=== PATIENT | female | born 1945 | race Caucasian/White ===

== ENCOUNTER 2024-01-22 22:14 | Emergency (ER) | payer MEDICARE, SELFPAY ==
[2024-01-22 22:32] VITALS: BP 145/65; PULSE 62; RESP 18; TEMP 36.5; O2SAT 99; BMI 39.5
--- NOTE | 2024-01-22 22:45 | ED_ITS ---
HPI - Extremity Injury (Lower) General Chief Complaint: Extremity Injury, Lower Stated Complaint: SWELLING LT ANKLE/LEG Time Seen by Provider: 01/22/24 22:41 Source: patient and family Mode of arrival: Wheelchair Limitations: no limitations History of Present Illness HPI Narrative: patient presents complaining of swelling of her left leg that started yesterday PM. she and her have been at [facility] for her son who required heart surgery. She Decided to leave because she started having discomfort of her left leg and swelling. No dyspnea or chest pain. no fever or nausea. Has pain when bearing weight Related Data Allergies Allergy/AdvReac Type Severity Reaction Status Date / Time Penicillins Allergy Intermediate airway Verified 01/22/24 22:36 Review of Systems ROS Status of ROS 10 or more systems reviewed and unremark able except as noted in history and below Exam Constitutional Vital Signs, click to edit/add: Last Vital Signs Temp 97.7 F 01/22/24 22:32 Pulse 62 01/22/24 22:32 Resp 18 01/22/24 22:32 BP 145/65 H 01/22/24 22:32 Pulse Ox 99 01/22/24 22:32 O2 Del Method Room Air 01/22/24 22:32 Common normals: no apparent distress, oriented x3, alert and well nourished Eye Common normals: EOMs intact bilaterally and conjunctivae normal Respiratory Common normals: normal respiratory effort, no retractions, no use of accessory muscles and clear to auscultation bilaterally Cardio Common normals: regular rate, regular rhythm, S1 normal heart sound and S2 normal heart sound GI Common normals: Normal to inspection, nondistended, normoactive bowel sounds present, soft to palpation and non-tender Extremity Other: 1+ swelling LLE . Mild tenderness of gastroc and ankle. Mild warmth at ankle . No erythma Neuro Common normals: oriented x3, CN's II-XII intact bilaterally, moves all extremities and no focal motor deficits Psych Appearance: grossly normal Course Vital Signs Vital signs: Vital Signs Temperature 97.7 F 01/22/24 22:32 Pulse Rate 62 01/22/24 22:32 Respiratory Rate 18 01/22/24 22:32 Blood Pressure 145/65 H 01/22/24 22:32 Pulse Oximetry 99 01/22/24 22:32 Oxygen Delivery Method Room Air 01/22/24 22:32 Temperature 97.7 F 01/22/24 22:32 Pulse Rate 62 01/22/24 22:32 Respiratory Rate 18 01/22/24 22:32 Blood Pressure 145/65 H 01/22/24 22:32 Pulse Oximetry 99 01/22/24 22:32 Oxygen Delivery Method Room Air 01/22/24 22:32 MDM - Extremity Injury (Lower) MDM Narrative Medical decision making narrative: patient presents with 2 day history of swelling LLE. d-dimer positive. Patient given dose of Lovenox and is to return tomorrow for venous doppler of her leg Discharge Plan Discharge Stand Alone Forms: Portal Instructions Chief Complaint: Extremity Injury, Lower Clinical Impression: Localized swelling of left lower leg Patient Disposition: Home, Self-Care Instructions: Leg Edema (ED) Additional Instructions: return tomorrow for ultrasound Referrals: Physician,Non-Staff, MD [Primary Care Provider] - 1 week
[2024-01-22 23:24] LABS: Basophils Absolute Auto 0.1 10^3/uL (0.0-0.1); Basophils Percent Auto 0.9 % (0.2-2.0); Eosinophils Absolute Auto 0.4 10^3/uL (0.0-0.7); Eosinophils Percent Auto 3.6 % (0.9-7.0); Hematocrit 38.8 % (36.0-48.0); Hemoglobin 12.7 g/dL (12.0-16.0); Immature Granulocytes Abs Auto 0.04 10^3/uL (0.00-0.03); Immature Granulocytes Pct Auto 0.3 % (0.0-0.5); Lymphocytes Absolute Auto 1.8 10^3/uL (1.2-3.8); Mean Corpuscular HGB Conc 32.7 g/dL (29.9-35.2); Mean Corpuscular Hemoglobin 32.8 pg (26.7-34.0); Mean Corpuscular Volume 100.3 fL (81.0-99.0); Mean Platelet Volume 10.8 fL (9.5-13.5); Monocytes Absolute Auto 0.9 10^3/uL (0.3-0.8); Monocytes Percent Auto 7.3 % (1.7-12.0); Neutrophils Absolute Auto 8.9 10^3/uL (1.4-6.5); Neutrophils Percent Auto 72.9 % (43.0-75.0); Platelet Count 218 10^3/uL (150-450); Red Blood Count 3.87 10^6/uL (4.20-5.40); White Blood Count 12.2 10^3/uL (4.0-11.0)
[2024-01-22 23:35] LABS: Alanine Aminotransferase 25 U/L (14-59); Albumin Level 3.4 g/dL (3.4-5.0); Alkaline Phosphatase 103 U/L (46-116); Anion Gap 15.2; Aspartate Amino Transferase 18 U/L (15-37); BUN Creatinine Ratio 34.7; Bilirubin Total 0.4 mg/dL (0.2-1.0); Calcium 8.9 mg/dL (8.5-10.1); Carbon Dioxide 24.2 mmol/L (21.0-32.0); Chloride 103 mmol/L (98-107); D Dimer 0.81 mg/L FEU (<=0.59); Estimated GFR (African America 54 (>=60); Estimated GFR (Non-African Ame 44 (>=60); Globulin 3.5 g/dL; Glucose 157 mg/dL (74-106); Potassium 3.4 mmol/L (3.5-5.1); Sodium 139 mmol/L (136-145); Total Protein 6.9 g/dL (6.4-8.2); Uric Acid 7.9 mg/dL (2.6-6.0)
[2024-01-22 23:36] LABS: Erythrocyte Sedimentation Rate 50 mm/hr (<=30)
[2024-01-22 23:47] VITALS: BP 103/57; PULSE 57; RESP 18; O2SAT 93
[2024-01-23] MEDS: TRAMADOL HCL 50 MG TABLET PO (00:07)
[2024-01-23] MEDS: ENOXAPARIN SODIUM 100 MG/ML SYRINGE SUBQ (00:07)
== END 2024-01-23 00:15 | disposition home or self-care (01) ==
PROVIDERS: Emergency Provider Internal Medicine
DX: M79.89 Other specified soft tissue disorders (principal)
CPT/HCPCS: 36415; 80053; 84550; 85025; 85378; 85652; 86140; 96372; 99284

== ENCOUNTER 2024-01-23 07:41 | Outpatient (OUT) | payer MEDICARE, SELFPAY ==
--- OUTSIDE RECORDS SUMMARY | 2024-01-23 07:45 | XMS_ITS | CCD ---
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 Role Phone Steph Hung Primary Care Provider None, Physician Primary Care Provider [phone] MD Moreno Mccord Attending Provider [phone] Steph Hung MD Primary Care Provider MD Steph Hung Primary Care Provider CONSTANZA Harrison Attending Provider STEPH HUNG Primary Care Unavailable HEATHER HURLEY Attending Unavailable MD Steph Hung Primary Care Provider MD Moreno Mccord Attending Provider Sam Hung MD Primary Care Provider Sam Hung MD Primary Care Provider Sam Hung MD Primary Care Provider CHANCE PATTON Attending Unavailable ABHILASH, PARMIE M Primary Care Unavailable CHANCE PATTON Attending Unavailable ABHILASH, PARMIE M Primary Care Unavailable CHANCE APTTON Attending Unavailable ABHILASH, PARMIE M Primary Care Unavailable Sam Hung MD Primary Care Provider JULIAN SPAIN Referring Unavailable ABHILASH, PARMIE A Primary Care Unavailable JULIAN SPAIN Referring Unavailable ABHILASH, PARMIE A Primary Care Unavailable STEPH HUNG Primary Care Unavailable ABHILASH, PARMIE A Primary Care Unavailable JULIAN SPAIN Referring Unavailable ABHILASH, PARMIE A Primary Care Unavailable JULIAN SPAIN Referring Unavailable ABHILASH, PARMIE A Primary Care Unavailable JULIAN SPAIN Referring Unavailable ABHILASH, PARMIE A Primary Care Unavailable TRICIA PÉREZ Attending Unavailable TRICIA PÉREZ Referring Unavailable ABHILASH, PARMIE A Primary Care Unavailable TRICIA PÉREZ Attending Unavailable ELISA, TRICIA Referring Unavailable ABHILASH, PARMIE A Primary Care Unavailable JAKUB, CHANTEL Olvera Admitting Unavailable JAKUB, CHANTEL Olvera Attending Unavailable ABHILASH, STEPH A Primary Care Unavailable JAKUB, CHANTEL J Admitting Unavailable JAKUB, CHANTEL Olvera Attending Unavailable ABHILASH, PARMIE A Primary Care Unavailable LAMONT STEWART Referring Unavailable ABHILASH, STEPH A Primary Care Unavailable ABHILASH, PARMIE A Referring Unavailable ABHILASH, PARMIE A Primary Care Unavailable MORENO MCCORD Referring Unavailable ABHILASH, STEPH A Primary Care Unavailable ABHILASH, STEPH A Primary Care Unavailable ABHILASH, STEPH A Primary Care Unavailable ABHILASH, STEPH A Primary Care Unavailable ABHILASH, PARMIE A Primary Care Unavailable ABHILASH, PARMIE A Primary Care Unavailable EDNA MCCLOUD Referring Unavailable ABHILASH, PARMIE A Primary Care Unavailable Allergies Allergy Classification Reported Allergen(s) Allergy Type Date of Onset Reaction(s) Facility Penicillins (antibiotic) (1 source) Penicillins Drug Allergy 3 Anaphylaxis, Shortness Of Breath, Swelling [facility] (20 sources) Penicillins; Translations: [PENICILLINS] Propensity to adverse reactions to drug 3 Anaphylaxis, Shortness Of Breath, Swelling [facility], [place] (8 sources) Penicillins Drug Intolerance 3 Anaphylaxis, Hives, Rash, Shortness of breath, Swelling [facility] Medications Current Medications Medication Drug Class(es) Dates Sig (Normalized) Sig (Original) acetaminophen 325 mg oral tablet (20 sources) Start: 09-27-2023 take 1 tablet by mouth every four hours as needed 650 mg, oral, Every 4 hours PRN, pain mild (1-3), first line, Starting on Mon09/27/23 at 1436, Phase II/On Unit If ordered PRN for pain, nurse is permitted to administer this medication for higher pain scores based on patient preference? Yes take 2 tablets by [facility] every six hours as needed acetaminophen (TYLENOL) 500 MG tablet Ta ke 2 tablets by mouth every 6 hours as needed (pt takes very rare) 0 Active take 1 tablet by takn th every six hours as needed acetaminophen (Tylenol) 500 mg tablet Ta ke 1 tablet (500 mg) by mouth every 6 hours if needed for mild pain (1 - 3). 0 Active acetaminophen 325 mg / HYDROcodone bitartrate 5 mg oral tablet (2 sources) Opioid Agonist Start: 09-29-2023 End: 10-04-2023 take 1 tablet by mouth every six hours for pain HYDROcodone-acetaminophen ([place]) 5-325 mg tablet Indications: Paraesophageal hiatal hernia Take 1 tablet by mouth every 6 hours if needed for severe pain (7 - 10) for up to 5 days. 20 tablet 0 09/29/2023 10/04/2023 Active Start: 09-27-2023 take 1 tablet by tank th every six hours as needed 1 tablet, oral, Every 6 hours PRN, pain moderate (4-6), first line, Starting on Mon09/27/23 at 1436, Phase II/On Unit If ordered PRN for pain, nurse is permitted to administer this medication for higher pain scores based on patient preference? Yes acyclovir 400 mg oral tablet (20 sources) Herpesvirus Nucleoside Analog DNA Polymerase Inhibitor, Herpes Simplex Virus Nucleoside Analog DNA Polymerase Inhibitor, Herpes Zoster Virus Nucleoside Analog DNA Polymerase Inhibitor acyclovir (ZOVIRAX) 400 MG tablet Take 1 tablet by mouth 0 Active albuterol 0.833 mg/ml / ipratropium bromide 0.167 mg/ml inhalation solution (3 sources) Anticholinergic, beta2-Adrenergic Agonist Start: 3 End: 3 ipratropium-albute roL (Duo-Neb) 0.5-2.5 mg/3 mL nebulizer solution 3 mL aluminum hydroxide 40 mg/ml / magnesium hydroxide 40 mg/ml / simethicone 4 mg/ml oral suspension (1 source) Start: 3 take 20 mL by mouth three times daily 20 mL, oral, 3 times daily, First dose on Mon09/27/23 at 1500, Phase II/On Unit amLODIPine 5 mg oral tablet (9 sources) Dihydropyridine Calcium Channel Francisco Start: 1 take 1 tablet by mouth twice daily amLODIPine (NORVASC) 5 MG tablet TAKE 1 TABLET BY MOUTH TWICE A DAY 0 06/29/2021 Active aspirin 81 mg chewable tablet (20 sources) Platelet Aggregation Inhibitor, Nonsteroidal Anti-inflammatory Drug Start: take 1 tablet by mouth once daily aspirin (ASPIRIN CHILDRENS) 81 MG chewable tablet Take 1 tablet by mouth daily 30 tablet 0 07/03/2022 Active Start: 07-03-2022 aspirin chewab le tablet 324 mg take 1 tablet by tank th once daily aspirin 81 mg EC tablet Take 1 tablet (81 mg) by mouth once daily. 0 Active End: 09-26-2023 aspirin (ASPIR-81 ORAL) Take 81 tablets by mouth once daily. 0 09/26/2023 Discontinued aspirin (ASPIR-8 1 ORAL) Take 81 tablets by mouth once daily. 0 Active End: 07-03-2022 take 1 tablet by mouth once daily aspirin 81 MG tablet Take 81 mg by mouth daily 0 07/03/2022 Discontinued (LIST CLEANUP) atenolol 25 mg oral tablet (20 sources) beta-Adrenergic Francisco Start: 03-06-2023 End: 09-27-2023 take 1 tablet by mouth once daily atenolol (Tenormin) 25 mg tablet Take 1 tablet (25 mg) by mouth once daily. 0 03/06/2023 Active Start: 07-06-2021 atenolol (TENO RMIN) 50 MG tablet 1 tablet 0 07/06/2021 Active Start: 07-06-2021 atenolol (TENO RMIN) 50 MG tablet 25 mg 0 07/06/2021 Active atorvastatin 80 mg oral tablet (13 sources) HMG-CoA Reductase Inhibitor Start: 07-03-2022 take 1 tablet by mouth once daily atorvastatin (LIPITOR) 80 MG tablet Take 1 tablet by mouth daily 30 tablet 0 07/03/2022 Active 30 ml bupivacaine hydrochloride 2.5 mg/ml injection (2 sources) Amide Local Anesthetic Start: 12-08-2020 bupivacaine (PF) (MARCAINE) 0.25 % injection Start: 11-10-2020 End: 11-10-2020 bupivacaine (PF) (MARCAINE) 0.25 % injection diclofenac sodium 0.01 mg/mg topical gel (1 source) Nonsteroidal Anti-inflammatory Drug Start: 12-27-2023 diclofenac sodium (VOLTAREN) 1 % GEL Apply 4 g topically 4 times daily as needed for Pain (to painful area on mid back) 350 g 0 12/27/2023 Active docusate sodium 100 mg oral capsule (2 sources) Start: 09-29-2023 End: 10-29-2023 take 1 capsule by mouth twice daily docusate sodium (Colace) 100 mg capsule Indications: Paraesophageal hiatal hernia Take 1 capsule (100 mg) by mouth 2 times a day. 60 capsule 0 09/29/2023 10/29/2023 Active 0.4 ml enoxaparin sodium 100 mg/ml prefilled syringe (1 source) Low Molecular Weight Heparin Start: 09-28-2023 enoxaparin (Lovenox) syringe 40 mg 1 ml hydrALAZINE hydrochloride 20 mg/ml injection (1 source) Arteriolar Vasodilator Start: 09-27-2023 take 10 mg intravenously every six hours as needed hydrALAZINE (Apresoline) injection 10 mg hydroCHLOROthiazide 25 mg / lisinopril 20 mg oral tablet (20 sources) Thiazide Diuretic, Angiotensin Converting Enzyme Inhibitor Start: 06-19-2023 take 1 tablet by mouth twice daily at mealtime lisinopriL-hydro chlorothiazide 20-25 mg tablet Take 1 tablet by mouth 2 times a day with meals. 0 06/19/2023 Active take 1 tablet by tank th once daily lisinopril-hydrochlorothiazide (PRINZIDE ;ZESTORETIC) 10-12.5 MG per tablet Take 1 tablet by mouth daily 0 Active lidocaine 0.04 mg/mg medicated patch (3 sources) Antiarrhythmic, Amide Local Anesthetic Start: 09-28-2023 lidocaine 4 % patch 1 patch Start: 06-07-2021 End: 06-07-2021 lidocaine PF 1 % injection Start: 11-10-2020 End: 11-10-2020 lidocaine PF 1 % injection lisinopril 20 mg, hydroCHLOROthiazide 25 mg for Zestoretic/Prinizide (1 source) Start: 09-27-2023 take 1 dose by mouth once daily oral, Daily, First dose on Mon09/27/23 at 1445 Give both components for Zestoretic/Prinizide product loratadine 10 mg oral tablet (20 sources) take 1 tablet by mouth once daily loratadine (CLARITIN) 10 MG tablet Take 1 tablet by mouth daily 0 Active magnesium amino acid chelate 133 mg oral tablet (1 source) take 1 tablet by mouth twice daily magnesium, amino acid chelate, 133 mg tablet Take 1 tablet (133 mg) by mouth 2 times a day. 0 Active meclizine hydrochloride 25 mg oral tablet (2 sources) Antiemetic Start: 07-03-2022 End: 07-13-2022 take 1 tablet by mouth three times daily as needed for nausea meclizine (ANTIVERT) 25 MG tablet Take 1 tablet by mouth 3 times daily as needed for Dizziness or Nausea 30 tablet 0 07/03/2022 07/13/2022 Active Start: 07-03-2022 End: 07-03-2022 meclizine (ANTIVERT) chewabl e tablet 25 mg meloxicam 15 mg oral tablet (19 sources) Nonsteroidal Anti-inflammatory Drug Start: 01-09-2020 take 1 tablet by mouth once daily at mealtime meloxicam (MOBIC) 15 MG tablet TAKE 1 TABLET BY MOUTH EVERY DAY WITH FOOD 0 01/09/2020 Active metFORMIN hydrochloride 500 mg oral tablet (1 source) Biguanide Start: 11-15-2023 take 1 tablet by mouth once daily at breakfast metFORMIN (GLUCOPHAGE) 500 MG tablet TAKE 1 TABLET BY MOUTH ONCE DAILY WITH MORNING MEAL 0 11/15/2023 Active 10 ml methocarbamol 100 mg/ml injection (6 sources) Muscle Relaxant Start: 05-05-2022 methocarbamol (ROBAXIN) injection 100 mg inject 1 mL intravenously once m ethocarbamol (ROBAXIN) 1000 MG/10ML injection Infuse 1 mL intravenously once 100mg 0 Active methylPREDNISolone 4 mg oral tablet (4 sources) Corticosteroid Start: 09-06-2022 End: 09-12-2022 methylPREDNISolone (MEDROL DOSEPACK) 4 MG tablet Take by mouth. 1 kit 0 09/06/2022 09/12/2022 Active Start: 12-08-2020 End: 12-08-2020 methylPREDNISolone acetate ( DEPO-MEDROL) injection Start: 11-10-2020 End: 11-10-2020 methylPREDNISolone acetate ( DEPO-MEDROL) injection 2 ml metoclopramide 5 mg/ml injection (1 source) Dopamine-2 Receptor Antagonist Start: 09-27-2023 take 10 mg intravenously every eight hours as needed 10 mg, intravenous, Every 8 hours PRN, nausea/vomiting, second line, Starting on Mon09/27/23 at 1436, Phase II/On Unit multivitamin (THERAGRAN) per tablet (20 sources) take 1 tablet by mouth once daily multivitamin (THERAGRAN) per tablet Take 1 tablet by mouth daily 0 Active take 1 tablet by mouth once joseluis y multivitamin (THERAGRAN) per tablet Take 1 tablet by mouth daily. 0 Suspended take 1 tablet by mouth once joseluis y multivitamin (THERAGRAN) per tablet Take 1 tablet by mouth daily. 0 Active 24 hr NIFEdipine 30 mg extended release oral tablet (10 sources) Dihydropyridine Calcium Channel Francisco Start: 09-27-2023 take 30 mg by mouth once daily before breakfast 30 mg, oral, Daily before breakfast, First dose on Mon09/27/23 at 1445 Give on an empty stomach. Do not crush, chew, or split. take 1 capsule by mouth once kian ly NIFEdipine (PROCARDIA) 20 MG capsule Take 1 capsule by mouth daily 0 Active omeprazole 20 mg delayed release oral capsule (20 sources) Proton Pump Inhibitor take 1 capsule by mouth twice daily omeprazole (PRILOSEC) 20 MG capsule Take 20 mg by mouth 2 times daily 0 Active ondansetron 4 mg oral tablet (4 sources) Serotonin-3 Receptor Antagonist Start: take 1 tablet by mouth every eight hours for nausea ondansetron (Zofran) 4 mg tablet Indications: Paraesophageal hiatal hernia Take 1 tablet (4 mg) by mouth every 8 hours if needed for nausea or vomiting. 20 tablet 0 09/29/2023 Active Start: 09-27-2023 take 4 mg intravenou sly every six hours as needed 4 mg, intravenous, Every 6 hours PRN, nausea/vomiting, first line, Starting on Mon09/27/23 at 1436, Phase II/On Unit When administering via IV Push, administer over 3-5 minutes. oxyCODONE hydrochloride 5 mg oral tablet (1 source) Opioid Agonist Start: 09-27-2023 take 1 tablet by mouth every four hours as needed oxyCODONE (Roxicodone) immediate release tablet 5 mg simethicone 80 mg chewable tablet (3 sources) Start: 09-29-2023 simethicone (M ylicon) 80 mg chewable tablet Indications: Paraesophageal hiatal hernia Chew 1 tablet (80 mg) 3 times a day. 30 tablet 0 09/29/2023 Active traMADol hydrochloride 50 mg oral tablet (11 sources) Opioid Agonist Start: 05-18-2021 End: 06-17-2021 take 1 tablet by mouth once daily as needed for pain traMADol (ULTRAM) 50 MG tablet Indications: Chronic pain syndrome Take 1 tablet by mouth daily as needed for Pain for up to 30 days. 30 tablet 0 05/18/2021 06/17/2021 Active Start: 08-31-2020 End: 09-10-2020 take 1 tablet by mouth every eight hours as needed for pain traMADol (ULTRAM) 50 MG tablet Indications: Chronic pain syndrome Take 1 tablet by mouth every 8 hours as needed for Pain for up to 10 days. 30 tablet 0 08/31/2020 09/10/2020 Active Start: 07-09-2020 End: 07-19-2020 take 1 tablet by mouth every eight hours as needed for pain traMADol (ULTRAM) 50 MG tablet Indications: Chronic pain syndrome Take 1 tablet by mouth every 8 hours as needed for Pain for up to 10 days. 30 tablet 0 07/09/2020 07/19/2020 Suspended Start: 12-16-2019 End: 01-15-2020 take 1 tablet by mouth every eight hours as needed for pain traMADol (ULTRAM) 50 MG tablet Indications: Chronic pain syndrome Take 1 tablet by mouth every 8 hours as needed for Pain for up to 30 days. 90 tablet 0 12/16/2019 01/15/2020 Active take 1 tablet by tank th every eight hours as needed for pain traMADol (ULTRAM) 50 MG tablet Take 50 mg by mouth every 8 hours as needed for Pain. 0 Suspended Completed/Discontinued Medications Medication Drug Class(es) Dates Sig (Normalized) Sig (Original) barium sulfate (E-Z-Paque) 96 % (w/w) suspension 40 mL (2 sources) Start: 09-25-2023 End: 09-25-2023 barium sulfate (E-Z-Paque) 96 % (w/w) suspension 40 mL barium sulfate (EZ HD BARIUM) 98 % suspension 150 mL (2 sources) Start: 09-25-2023 End: 09-25-2023 barium sulfate (EZ HD BARIUM) 98 % suspension 150 mL calcium chloride 0.0014 meq/ml / potassium chloride 0.004 meq/ml / sodium chloride 0.103 meq/ml / sodium lactate 0.028 meq/ml injectable solution (4 sources) Start: 09-26-2023 End: 09-28-2023 lactated Ringer's infusion clopidogrel 75 mg oral tablet (1 source) [id number] Platelet Inhibitor Start: 07-03-2022 End: 07-03-2022 clopidogrel (PLAVIX) tablet 75 mg Start: 07-03-2022 End: 07-03-2022 clopidogrel (PLAVIX) tablet 75 mg iopamidol (ISOVUE-370) 76 % injection 80 mL (1 source) Start: 07-03-2022 End: 07-03-2022 iopamidol (ISOVUE-370) 76 % injection 80 mL 1 ml morphine sulfate 4 mg/ml prefilled syringe (1 source) Opioid Agonist Start: 09-27-2023 End: 09-29-2023 take 4 mg intravenously every four hours as needed 4 mg, intravenous, Every 4 hours PRN, pain severe (7-10), first line, Starting on Mon09/27/23 at 1436, Phase II/On Unit sod bicarb-citric ac-simeth (E-Z-Gas II) 2.21-1.53 gram/4 gram granules 1 packet (2 sources) Start: 09-25-2023 End: 09-25-2023 sod bicarb-citric ac-simeth (E-Z-Gas II) 2.21-1.53 gram/4 gram granules 1 packet 50 ml sodium chloride 9 mg/ml injection (1 source) Start: 07-03-2022 End: 07-03-2022 0.9 % sodium chloride bolus Problems Active Problems Problem Classification Problem Date Documented Da te Episodic/Chronic Abdominal hernia (16 sources) Paraesophageal hernia; Translations: [Diaphragmatic hernia without obstruction or gangrene] Onset: 09-25-2023 09-25-2023 Episodic Abdominal pain (1 source) Epigastric pain; Translations: [Abdominal pain, epigastric] Episodic Chronic kidney disease (5 sources) Chronic kidney disease stage 3; Translations: [Chronic renal disease, stage III] Onset: 06-28-2022 06-28-2022 Chronic Conditions associated with dizziness or vertigo (1 source) Dizziness; Translations: [Dizziness and giddiness] Episodic Disorders of lipid metabolism (5 sources) Hyperlipidemia; Translations: [Hyperlipidemia, unspecified] Onset: 09-27-2023 09-27-2023 Chronic Disorders of teeth and jaw (2 sources) Other specified disorders of teeth and supporting structures; Translations: [Other specified disorders of teeth and supporting structures] Onset: 03-03-2023 Episodic Essential hypertension (6 sources) Hypertensive disorder; Translations: [Essential (primary) hypertension] Onset: 09-27-2023 09-27-2023 Chronic Occlusion or stenosis of precerebral arteries (1 source) Occlusion and stenosis of bilateral carotid arteries; Translations: [Occlusion and stenosis of bilateral carotid arteries] Onset: 07-11-2023 Chronic Other connective tissue disease (3 sources) Myalgia, other site; Translations: [Myalgia, other site] Onset: 06-26-2023 Episodic Other gastrointestinal disorders (1 source) Constipation; Translations: [Constipation, unspecified constipation type] Episodic Other gastrointestinal disorders (2 sources) Personal history of other diseases of the digestive system; Translations: [Personal history of other diseases of the digestive system] Onset: 10-12-2023 Episodic Other lower respiratory disease (1 source) Snoring; Translations: [Snoring] Onset: 01-17-2024 Episodic Other lower respiratory disease (1 source) Apnea, not elsewhere classified; Translations: [Apnea, not elsewhere classified] Onset: 01-17-2024 Episodic Other nervous system disorders (3 sources) Chronic pain syndrome; Translations: [Chronic pain syndrome] Onset: 06-26-2023 Chronic Other nervous system disorders (1 source) Chronic pain syndrome Episodic Other non-traumatic joint disorders (1 source) Shoulder pain; Translations: [Pain in right shoulder] Episodic Other nutritional; endocrine; and metabolic disorders (1 source) Morbid (severe) obesity due to excess calories; Translations: [Morbid (severe) obesity due to excess calories] Onset: 06-26-2023 Chronic Other screening for suspected conditions (not mental disorders or infectious disease) (1 source) Encounter for screening mammogram for malignant neoplasm of breast; Translations: [Encounter for screening mammogram for malignant neoplasm of breast] Onset: 11-08-2023 Episodic Residual codes; unclassified (1 source) Hypersomnia, unspecified; Translations: [Hypersomnia, unspecified] Onset: 01-17-2024 Chronic Residual codes; unclassified (1 source) Sleep apnea, unspecified; Translations: [Sleep apnea, unspecified] Onset: 01-17-2024 Chronic Residual codes; unclassified (4 sources) History of hernia repair; Translations: [Other specified postprocedural states] Onset: 10-12-2023 10-12-2023 Episodic Residual codes; unclassified (2 sources) Other specified postprocedural states; Translations: [Other specified postprocedural states] Onset: 10-12-2023 Episodic Spondylosis; intervertebral disc disorders; other back problems (20 sources) Lumbosacral spondylosis without myelopathy; Translations: [Lumbar spondylosis] Onset: 12-13-2016 Resolved: 09-08-2020 12-13-2016 Chronic Unclassified (1 source) Patient encounter status; Translations: [Encounter for screening mammogram for malignant neoplasm of breast] Unclassified (2 sources) Low back pain, unspecified; Translations: [Low back pain, unspecified] Onset: 06-26-2023 Past or Other Problems Problem Classification Problem Date Documented Da te Episodic/Chronic Allergic reactions (5 sources) Allergic contact dermatitis, unspecified cause; Translations: [Idiopathic urticaria] Onset: 05-09-2023 Episodic Spondylosis; intervertebral disc disorders; other back problems (3 sources) Lumbosacral radiculitis; Translations: [Dorsalgia, unspecified] Onset: 06-26-2023 Episodic Unclassified (1 source) Low back pain, unspecified; Translations: [Low back pain, unspecified] Onset: 01-09-2024 Results Test Name Value Interpretation Reference Range Facility CT COMPARISON OF OUTSIDE ANJEL MSon 01-17-2024 CT COMPARISON OF OUTSIDE FILMS Radiology exam is complete. No Radiologist dictation. Please follow up with ordering provider. Normal [facility] XR COMPARISON OF OUTSIDE ANJEL MSon 01-17-2024 XR COMPARISON OF OUTSIDE FILMS Radiology exam is complete. No Radiologist dictation. Please follow up with ordering provider. Normal [facility] ANION GAPon 11-10-2023 Anion gap [Moles/Vol] 12.0 mmol/L Normal 8.0-16.0 [facility] Comment on above: Result Comment: ANIO N GAP = Sodium -(Chloride + CO2) Performed By: #### C BCWD, CMP, LIPDR, ANION, EGFR1 #### [address] [address] COMP. METABOLIC PANELon Albumin [Mass/Vol] 3.7 g/dL Normal 3.5-5.1 [facility] Comment on above: Performed By: #### C BCWD, CMP, LIPDR, ANION, EGFR1 #### [address] [address] ALP [Catalytic activity/Vol] 91 U/L Normal 38-126 [facility] Comment on above: Performed By: #### C BCWD, CMP, LIPDR, ANION, EGFR1 #### [address] [address] ALT [Catalytic activity/Vol] 26 U/L Normal 11-66 [facility] Comment on above: Performed By: #### C BCWD, CMP, LIPDR, ANION, EGFR1 #### [address] [address] AST [Catalytic activity/Vol] 20 U/L Normal 5-40 [facility] Comment on above: Performed By: #### C BCWD, CMP, LIPDR, ANION, EGFR1 #### [address] [address] Bilirubin [Mass/Vol] 0.4 mg/dL Normal 0.3-1.2 [facility] Comment on above: Performed By: #### C BCWD, CMP, LIPDR, ANION, EGFR1 #### [address] [address] Calcium [Mass/Vol] 9.6 mg/dL Normal 8.5-10.5 [facility] Comment on above: Performed By: #### C BCWD, CMP, LIPDR, ANION, EGFR1 #### [address] [address] Chloride [Moles/Vol] 109 mmol/L Normal 98-111 [facility] Comment on above: Performed By: #### C BCWD, CMP, LIPDR, ANION, EGFR1 #### [address] [address] CO2 [Moles/Vol] 23 mmol/L Normal 23-33 [facility] Comment on above: Performed By: #### C BCWD, CMP, LIPDR, ANION, EGFR1 #### [facility] [employer] [address] [place] [id number] Creatinine [Mass/Vol] 1.1 mg/dL Normal 0.4-1.2 [facility] Comment on above: Performed By: #### C BCWD, CMP, LIPDR, ANION, EGFR1 #### [address] [address] Glucose [Mass/Vol] 120 mg/dL High 70-108 [facility] Comment on above: Performed By: #### C BCWD, CMP, LIPDR, ANION, EGFR1 #### [address] [address] Potassium [Moles/Vol] 4.2 mmol/L Normal 3.5-5.2 [facility] Comment on above: Performed By: #### C BCWD, CMP, LIPDR, ANION, EGFR1 #### [address] [address] Protein [Mass/Vol] 6.6 g/dL Normal 6.1-8.0 [facility] Comment on above: Performed By: #### C BCWD, CMP, LIPDR, ANION, EGFR1 #### [address] [address] Sodium [Moles/Vol] 144 mmol/L Normal 135-145 [facility] Comment on above: Performed By: #### C BCWD, CMP, LIPDR, ANION, EGFR1 #### [facility] [employer] [address] [place] [address] Urea nitrogen [Mass/Vol] 49 mg/dL High 7-22 [facility] Comment on above: Performed By: #### C BCWD, CMP, LIPDR, ANION, EGFR1 #### [facility] [employer] [address] [place] [id number] GFR, ESTIMATEDon 11-10-2023 GFR/1.73 sq M.predicted MDRD (S/P/Bld) [Vol rate/Area] 52 mL/min/{1.73_m2} Abnormal >60 [facility] Comment on above: Result Comment: Libia guzmanc calculator link [email or web address] Effective Aug 08, 2022 These results are not intended for use in patients <18 years of age. eGFR results are calculated without a race factor using the 2020 CKD-EPI equation. Careful clinical correlation is recommended, particularly when comparing to results calculated using previous equations. The CKD-EPI equation is less accurate in patients with extremes of muscle mass, extra-renal metabolism of creatinine, excessive creatine ingestion, or following therapy that affects renal tubular secretion. Performed By: #### C JACKIE, CMP, LIPDR, ANION, EGFR1 #### [place] [address] HEMOGLOBIN A1Con 11-10-2023 Glucose [Mass/Vol] 147 mg/dL High 70-126 [facility] Comment on above: Performed By: #### C JACKIE, CMP, LIPDR, ANION, EGFR1 #### [place] [address] HbA1c (Bld) [Mass fraction] 6.9 % High 4.4-6.4 [facility] Comment on above: Performed By: #### C BCTED, CMP, LIPDR, ANION, EGFR1 #### [place] [address] ANION GAPon 10-03-2023 Anion gap [Moles/Vol] 15.0 mmol/L Normal 8.0-16.0 [facility] Comment on above: Result Comment: ANIO N GAP = Sodium -(Chloride + CO2) Performed By: #### A DEENA FRANCOIS, CBCWD, EGFR1 #### [place] [address] CBC WITH DIFFERENTIALon 09-07 ABS BASOPHILS 0.1 thou/mm3 Normal 0.0-0.1 [facility] Comment on above: Performed By: #### A DEENA FRANCOIS, CBCWD, EGFR1 #### [place] [address] ABS EOSINOPHILS 0.4 thou/mm3 Normal 0.0-0.4 [facility] Comment on above: Performed By: #### A DEENA FRANCOIS, CBCWD, EGFR1 #### [address] [address] ABS IMMATURE GRANS (IG) 0.10 thou/mm3 High 0.00-0.07 [facility] Comment on above: Performed By: #### A DEENA FRANCOIS, CBCWD, EGFR1 #### [address] [address] ABS LYMPHOCYTES 1.1 thou/mm3 Normal 1.0-4.8 [facility] Comment on above: Performed By: #### A DEENA FRANCOIS, CBCWD, EGFR1 #### [address] [address] ABS MONOCYTES 0.7 thou/mm3 Normal 0.4-1.3 [facility] Comment on above: Performed By: #### A DEENA FRANCOIS, CBCWD, EGFR1 #### [address] [address] ABS NEUTROPHILS 7.2 thou/mm3 Normal 1.8-7.7 [facility] Comment on above: Performed By: #### A DEENA FRANCOIS, CBCWD, EGFR1 #### [address] [address] Basophils/100 WBC (Bld) 0.9 % Normal [facility] Comment on above: Performed By: #### A DEENA FRANCOIS, CBCWD, EGFR1 #### [address] [address] Eosinophils/100 WBC (Bld) 4.1 % Normal [facility] Comment on above: Performed By: #### A DEENA FRANCOIS, CBCWD, EGFR1 #### [address] [address] Erythrocyte distribution width (RBC) [Ratio] 15.2 % High 11.5-14.5 [facility] Comment on above: Performed By: #### A DEENA FRANCOIS, CBCWD, EGFR1 #### [facility] [address] [place] [address] Hematocrit (Bld) [Volume fraction] 42.6 % Normal 37.0-47.0 [facility] Comment on above: Performed By: #### A DEENA FRANCOIS, CBCWD, EGFR1 #### [facility] [address] [place] [address] Hemoglobin (Bld) [Mass/Vol] 13.9 g/dL Normal 12.0-16.0 [facility] Comment on above: Performed By: #### A DEENA FRANCOIS, CBCWD, EGFR1 #### [facility] [address] [place] [address] IMMATURE GRANS (IG) 1.0 % Normal [facility] Comment on above: Performed By: #### A DEENA FRANCOIS, CBCWD, EGFR1 #### [address] [address] Lymphocytes/100 WBC (Bld) 11.9 % Normal [facility] Comment on above: Performed By: #### A DEENA FRANCOIS, CBCWD, EGFR1 #### [facility] [address] [place] [address] MCH (RBC) [Entitic mass] 31.9 pg Normal 26.0-33.0 [facility] Comment on above: Performed By: #### A DEENA FRANCOIS, CBCWD, EGFR1 #### [facility] [address] [place] [address] MCHC (RBC) [Mass/Vol] 32.6 g/dL Normal 32.2-35.5 [facility] Comment on above: Performed By: #### A DEENA FRANCOIS, CBCWD, EGFR1 #### [facility] [address] [place] [address] MCV (RBC) [Entitic vol] 97.7 fL Normal 81.0-99.0 [facility] Comment on above: Performed By: #### A DEENA FRANCOIS, CBCWD, EGFR1 #### [facility] [address] [place] [address] Monocytes/100 WBC (Bld) 6.9 % Normal [facility] Comment on above: Performed By: #### A ALESSANDRO, CMP, CBCWD, EGFR1 #### [facility] [address] [place] [address] Neutrophils/100 WBC (Bld) 75.2 % Normal [facility] Comment on above: Performed By: #### A ALESSANDRO, CMP, CBCWD, EGFR1 #### [facility] [address] [place] [address] NRBC 0 /100 wbc Normal [facility] Comment on above: Performed By: #### A ALESSANDRO, CMP, CBCWD, EGFR1 #### [facility] [address] [place] [address] PLATELET 264 thou/mm3 Normal 130-400 [facility] Comment on above: Performed By: #### A ALESSANDRO, CMP, CBCWD, EGFR1 #### [address] [address] Platelet mean volume (Bld) [Entitic vol] 10.5 fL Normal 9.4-12.4 [facility] Comment on above: Performed By: #### A ALESSANDRO, CMP, CBCWD, EGFR1 #### [address] [address] RBC 4.36 mill/mm3 Normal 4.20-5.40 [facility] Comment on above: Performed By: #### A ALESSANDRO, CMP, CBCWD, EGFR1 #### [address] [address] RDW-SD 54.9 fL High 35.0-45.0 [facility] Comment on above: Performed By: #### A ALESSANDRO, CMP, CBCWD, EGFR1 #### [facility] [address] [place] [address] WBC 9.6 thou/mm3 Normal 4.8-10.8 [facility] Comment on above: Performed By: #### A ALESSANDRO, CMP, CBCWD, EGFR1 #### [facility] [address] [place] [address] COMP. METABOLIC PANELon 11-2 Albumin [Mass/Vol] 3.7 g/dL Normal 3.5-5.1 [facility] Comment on above: Performed By: #### A DEENA FRANCOIS, CBCWD, EGFR1 #### [facility] [address] [place] [address] ALP [Catalytic activity/Vol] 95 U/L Normal 38-126 [facility] Comment on above: Performed By: #### A DEENA FRANCOIS, CBCWD, EGFR1 #### [facility] [address] [place] [address] ALT [Catalytic activity/Vol] 85 U/L High 11-66 [facility] Comment on above: Performed By: #### A DEENA FRANCOIS, CBCWD, EGFR1 #### [address] [address] AST [Catalytic activity/Vol] 59 U/L High 5-40 [facility] Comment on above: Performed By: #### A DEENA FRANCOIS, CBCWD, EGFR1 #### [facility] [address] [address] Bilirubin [Mass/Vol] 0.5 mg/dL Normal 0.3-1.2 [facility] Comment on above: Performed By: #### A DEENA FRANCOIS, CBCWD, EGFR1 #### [address] [address] Calcium [Mass/Vol] 9.7 mg/dL Normal 8.5-10.5 [facility] Comment on above: Performed By: #### A DEENA FRANCOIS, CBCWD, EGFR1 #### [facility] [address] [place] [address] Chloride [Moles/Vol] 97 mmol/L Low 98-111 [facility] Comment on above: Performed By: #### A DEENA FRANCOIS, CBCWD, EGFR1 #### [facility] [address] [place] [address] CO2 [Moles/Vol] 25 mmol/L Normal 23-33 [facility] Comment on above: Performed By: #### A DEENA FRANCOIS, CBCWD, EGFR1 #### [facility] [employer] [address] [place] [address] Creatinine [Mass/Vol] 1.1 mg/dL Normal 0.4-1.2 [facility] Comment on above: Performed By: #### A DEENA FRANCOIS, CBCWD, EGFR1 #### [facility] [address] [place] [address] Glucose [Mass/Vol] 109 mg/dL High 70-108 [facility] Comment on above: Performed By: #### A DEENA FRANCOIS, CBCWD, EGFR1 #### [facility] [address] [place] [address] Potassium [Moles/Vol] 4.3 mmol/L Normal 3.5-5.2 [facility] Comment on above: Performed By: #### A DEENA FRANCOIS, CBCWD, EGFR1 #### [facility] [address] [place] [address] Protein [Mass/Vol] 6.2 g/dL Normal 6.1-8.0 [facility] Comment on above: Performed By: #### A DEENA FRANCOIS, CBCWD, EGFR1 #### [facility] [address] [place] [address] Sodium [Moles/Vol] 137 mmol/L Normal 135-145 [facility] Comment on above: Performed By: #### A DEENA FRANCOIS, CBCWD, EGFR1 #### [facility] [address] [place] [address] Urea nitrogen [Mass/Vol] 27 mg/dL High 7-22 [facility] Comment on above: Performed By: #### A DEENA FRANCOIS, CBCWD, EGFR1 #### [facility] [address] [place] [address] GFR, ESTIMATEDon 10-03-2023 GFR/1.73 sq M.predicted MDRD (S/P/Bld) [Vol rate/Area] 52 mL/min/{1.73_m2} Abnormal >60 [facility] Comment on above: Result Comment: Pedi atric calculator link https://www.kidney.org/professionals/kdoqi/gfr_calculatorped Effective Aug 08, 2022 These results are not intended for use in patients <18 years of age. eGFR results are calculated without a race factor using the 2020 CKD-EPI equation. Careful clinical correlation is recommended, particularly when comparing to results calculated using previous equations. The CKD-EPI equation is less accurate in patients with extremes of muscle mass, extra-renal metabolism of creatinine, excessive creatine ingestion, or following therapy that affects renal tubular secretion. Performed By: #### A ALESSANDRO, CMP, CBCWD, EGFR1 #### [facility] [employer] [address] [place] [address] CBC panel Auto (Bld)on 09-28 Erythrocyte distribution width (RBC) [Ratio] 15.0 % High 11.5 - 14.5 % [facility] Hematocrit (Bld) [Volume fraction] 41.0 % 36.0 - 46.0 % [facility] Hemoglobin (Bld) [Mass/Vol] 13.3 g/dL 12.0 - 16.0 g/dL [facility] Interpretation and review of laboratory results Abnormal [facility] MCH (RBC) [Entitic mass] 32.4 pg 26.0 - 34.0 pg [facility] MCHC (RBC) [Mass/Vol] 32.4 g/dL 32.0 - 36.0 g/dL [facility] MCV (RBC) [Entitic vol] 100 fL 80 - 100 fL [facility] Nucleated RBC/100 WBC (Bld) [Ratio] 0.0 % [facility] Platelets (Bld) [#/Vol] 219 10*3/uL [facility] RBC (Bld) [#/Vol] 4.11 10*6/uL [facility] WBC (Bld) [#/Vol] 16.5 10*3/uL High [facility] Comprehensive metabolic 2000 panelon 09-28-2023 Albumin BCP dye [Mass/Vol] 3.6 g/dL 3.4 - 5.0 g/dL [facility] ALP [Catalytic activity/Vol] 61 U/L 33 - 136 U/L [facility] ALT With P-5'-P [Catalytic activity/Vol] 219 U/L High 7 - 45 U/L [facility] Comment on above: Patients treated wit h Sulfasalazine may generate falsely decreased results for ALT. Anion gap [Moles/Vol] 15 mmol/L 10 - 2 0 mmol/L [facility] AST With P-5'-P [Catalytic activity/Vol] 158 U/L High 9 - 39 U/L [facility] Bilirubin [Mass/Vol] 0.5 mg/dL 0.0 - 1 .2 mg/dL [facility] Calcium [Mass/Vol] 8.5 mg/dL Low 8.6 - 10. 3 mg/dL [facility] Chloride [Moles/Vol] 101 mmol/L 98 - 10 7 mmol/L [facility] CO2 [Moles/Vol] 22 mmol/L 21 - 32 mmol/L [facility] Creatinine [Mass/Vol] 1.12 mg/dL High 0.50 - 1.05 mg/dL [facility] GFR/1.73 sq M.predicted MDRD (S/P/Bld) [Vol rate/Area] 51 mL/min/{1.73_m2} Low - PINF [facility] Comment on above: Calculations of jackeline mated GFR are performed using the 2020 CKD-EPI Study Refit equation without the race variable for the IDMS-Traceable creatinine methods. https://jasn.asnjournals.org/content//ASN.067905 1700 Glucose [Mass/Vol] 183 mg/dL High 74 - 99 mg/dL [facility] Interpretation and review of laboratory results Abnormal [facility] Potassium [Moles/Vol] 3.9 mmol/L 3.5 - 5.3 mmol/L [facility] Protein [Mass/Vol] 6.2 g/dL Low 6.4 - 8.2 g/dL [facility] Sodium [Moles/Vol] 134 mmol/L Low 136 - 145 mmol/L [facility] Urea nitrogen [Mass/Vol] 33 mg/dL High 6 - 23 mg/dL [facility] Magnesiumon 09-28-2023 Magnesium [Mass/Vol] 1.62 mg/dL 1.60 - 2.40 mg/dL [facility] Magnesium [Mass/Vol]on 09-28 Interpretation and review of laboratory results Normal [facility] ECG 12-LEADon 09-27-2023 ECG 12-LEAD Ventricular Rate 31 Atrial Rate 31 QRS Duration 132 Q-T Interval 396 QTC Calculation(Bazett) 284 R Harvel 216 T Harvel 84 QRS Count 5 Q Onset 204 T Offset 402 QTC Fredericia 318 Diagnosis Poor data quality, interpretation may be adversely affected Undetermined rhythm Nonspecific intraventricular block Anterolateral infarct , age undetermined Abnormal ECG No previous ECGs available Confirmed by Ja Bishop ([id number]) on 10/06/2023 7:22:23 AM Normal [facility] RF Esophagus Views W barium contrast Felipe 09-25-2023 Impressive, large, mixed sliding and rolling type (type 3) hiatal hernia includes the gastroesophageal junction which is posterior to the supradiaphragmatic stomach At least the proximal 3/4 of the stomach is above the diaphragm in a rolling hernia anterior to the gastroesophageal junction which is supradiaphragmatic No obstruction from the herniated supradiaphragmatic stomach, but there is definitely significantly delayed transit from the supradiaphragmatic stomach into the subdiaphragmatic stomach The patient informs me she had an esophagram about seven years ago when this hernia was initially diagnosed. There are no comparisons of any kind (fluoroscopic, CT or radiograph) available in the local PACS archive MACRO: None Signed by: Cas Tong 09/25/2023 3:46 PM Dictation workstation: [id number] [facility] Interpreted By: Cas Tong, STUDY: [place] GI ESOPHAGRAM; 09/25/2023 3:36 pm INDICATION: Signs/Symptoms:epigast frances pressure with and without meals; known history of hiatal hernia. COMPARISON: None available in the local PACS archive ACCESSION NUMBER(S): [id number] ORDERING CLINICIAN: CHANCE PATTON TECHNIQUE: Biphasic barium esophagram Fluoroscopy time: 1 Minutes, 39 seconds The following maneuvers / imaging were performed, in order: 1. Static views of double contrast upright LPO esophagram during continuous drinking 2. Static view/s of the lower segment and lower esophageal sphincter / GE Junction after log roll and other Valsalva maneuver/s, +/- water-siphon test to evaluate for GERD 3. Static view/s of the gastric fundus in right lateral decubitus 4. Cine imaging of prone VALVERDE motility evaluation with individual sip / swallows 5. Cine imaging prone VALVERDE evaluation of the esophagus and lower esophageal sphincter / GE Junction during continuous drinking FINDINGS: Postsurgical change: None identified Hiatal Hernia: Very large combined or mixed type rolling and sliding (type 3) hiatal hernia. The gastroesophageal junction is just slightly above the hiatus but more impressive is the gastric herniation, with at least the most proximal 3/4 of the stomach, including the gastroesophageal junction above the diaphragm Stricture: Negative. No fixed esophageal stricture or other narrowing. Mucosa: Negative. No evidence of esophageal or gastric cardia ulceration, polyp, mass or other mucosal abnormality. Diverticulum: Negative Ring / web: Negative Gastroesophageal Reflux: Continuous gastroesophageal reflux of barium from the herniated supradiaphragmatic stomach Esophageal Motility: Nondiagnostic evaluation. Due to the degree of redundancy in the esophagus (which is due to the length of stomach above the diaphragm), I find evaluation of esophageal dysmotility to be unreliable. There is a primary peristaltic wave driving barium distally, but the esophagus is fairly redundant due to the herniated stomach [facility] Cas Tong MD - 09/25/2023 Interpreted By: Cas Tong, STUDY: [place] GI ESOPHAGRAM; 09/25/2023 3:36 pm INDICATION: Signs/Symptoms:epigast frances pressure with and without meals; known history of hiatal hernia. COMPARISON: None available in the local PACS archive ACCESSION NUMBER(S): [id number] ORDERING CLINICIAN: CHANCE PATTON TECHNIQUE: Biphasic barium esophagram Fluoroscopy time: 1 Minutes, 39 seconds The following maneuvers / imaging were performed, in order: 1. Static views of double contrast upright LPO esophagram during continuous drinking 2. Static view/s of the lower segment and lower esophageal sphincter / GE Junction after log roll and other Valsalva maneuver/s, +/- water-siphon test to evaluate for GERD 3. Static view/s of the gastric fundus in right lateral decubitus 4. Cine imaging of prone VALVERDE motility evaluation with individual sip / swallows 5. Cine imaging prone VALVERDE evaluation of the esophagus and lower esophageal sphincter / GE Junction during continuous drinking FINDINGS: Postsurgical change: None identified Hiatal Hernia: Very large combined or mixed type rolling and sliding (type 3) hiatal hernia. The gastroesophageal junction is just slightly above the hiatus but more impressive is the gastric herniation, with at least the most proximal 3/4 of the stomach, including the gastroesophageal junction above the diaphragm Stricture: Negative. No fixed esophageal stricture or other narrowing. Mucosa: Negative. No evidence of esophageal or gastric cardia ulceration, polyp, mass or other mucosal abnormality. Diverticulum: Negative Ring / web: Negative Gastroesophageal Reflux: Continuous gastroesophageal reflux of barium from the herniated supradiaphragmatic stomach Esophageal Motility: Nondiagnostic evaluation. Due to the degree of redundancy in the esophagus (which is due to the length of stomach above the diaphragm), I find evaluation of esophageal dysmotility to be unreliable. There is a primary peristaltic wave driving barium distally, but the esophagus is fairly redundant due to the herniated stomach IMPRESSION: Impressive, large, mixed sliding and rolling type (type 3) hiatal hernia includes the gastroesophageal junction which is posterior to the supradiaphragmatic stomach At least the proximal 3/4 of the stomach is above the diaphragm in a rolling hernia anterior to the gastroesophageal junction which is supradiaphragmatic No obstruction from the herniated supradiaphragmatic stomach, but there is definitely significantly delayed transit from the supradiaphragmatic stomach into the subdiaphragmatic stomach The patient informs me she had an esophagram about seven years ago when this hernia was initially diagnosed. There are no comparisons of any kind (fluoroscopic, CT or radiograph) available in the local PACS archive MACRO: None Signed by: Cas Tong 09/25/2023 3:46 PM Dictation workstation: [id number] [facility] Work Phone: Radiology Study observation (narrative) [facility] Work Phone: RF Esophagus Views W barium contrast POOrdered By: Cas Tong on 09-25-2023 [facility] Work Phone: COMPREHENSIVE METABOLIC PANE L WITH GFRon 08-30-2023 Albumin [Mass/Vol] 4.1 g/dL Normal 3.5-5.2 [facility] Comment on above: Result Comment: Pathology [employer] [employer] [address] [place] [address] CLIA No. [id number] CAP Accreditation No. [id number] Examination Supervisor: Melissa Sam M.D. ALK PHOS 97 U/L Normal 40-142 [facility] ALT [Catalytic activity/Vol] 25 U/L Normal 5-40 [facility] Anion gap [Moles/Vol] 11.0 mmol/L Normal 7.0-16.0 [facility] AST-SGOT 21 U/L Normal 9-40 [facility] Bilirubin.direct [Mass/Vol] 0.5 mg/dL Normal <=1.2 [facility] Calcium [Mass/Vol] 9.6 mg/dL Normal 8.5-10.5 [facility] Chloride [Moles/Vol] 105 mmol/L Normal 95-107 [facility] CO2 [Moles/Vol] 26 mmol/L Normal 19-31 [facility] Creatinine [Mass/Vol] 1.08 mg/dL Normal 0.60-1.30 [facility] GFR/1.73 sq M.predicted among non-blacks MDRD (S/P/Bld) [Vol rate/Area] 53 mL/min/{1.73_m2} Low >60 [facility] Glucose [Mass/Vol] 115 mg/dL High 70-99 [facility] Potassium [Moles/Vol] 4.3 mmol/L Normal 3.5-5.4 [facility] Protein [Mass/Vol] 6.2 g/dL Normal 6.1-8.3 [facility] Sodium [Moles/Vol] 142 mmol/L Normal 133-146 [facility] Urea nitrogen [Mass/Vol] 30 mg/dL High 8-23 [facility] LIPID PANEL WITH REFLEX TO D IRECT LDLon 08-30-2023 Cholesterol [Mass/Vol] 160 mg/dL Normal <200 [facility] Cholesterol in LDL/Cholesterol in HDL [Mass ratio] 1.6 {ratio} Normal <3.22 [facility] Cholesterol.total/Cho lesterol in HDL [Mass ratio] 3.0 {ratio} Normal <4.44 [facility] HDL-CHOL 53 mg/dL Normal >39 [facility] LDL-CHOL, CALCULATED 84 mg/dL Normal <100 [facility] Triglyceride [Mass/Vol] 113 mg/dL Normal <149 [facility] VLDL-CHOL, CALCULATED 23 mg/dL Normal <30 [facility] FLUORO FOR SURGICAL PROCEDUR ESon 08-15-2023 FLUORO FOR SURGICAL PROCEDURES Radiology exam is complete. No Radiologist dictation. Please follow up with ordering provider. Normal [facility] ALLERGEN, INTERP, IMMUNCAP S CORE IGEon 07-27-2023 ALLERGEN, INTERP, IMMUNCAP SCORE IGE SEE BELOW Normal [facility] Comment on above: Result Comment: Robby rgen, Interp, Immunocap Score Ig See Note REFERENCE INTERVAL: Allergen, Interpretation Less than 0.10 kU/L......Class 0.....No significant level detected 0.10-0.34 kU/L...........Class 0/1...Clinical relevance undetermined 0.35-0.70 kU/L...........Class 1.....Low 0.71-3.50 kU/L...........Class 2.....Moderate 3.51-17.50 kU/L..........Class 3.....High 17.51-50.00 kU/L.........Class 4.....Very High 50.01-100.00 kU/L........Class 5.....Very High Greater than 100.00kU/L..Class 6.....Very High Allergen results of 0.10-0.34 kU/L are intended for specialist use as the clinical relevance is undetermined. Even though increasing ranges are reflective of increasing concentrations of allergen-specific IgE, these concentrations may not correlate with the degree of clinical response or skin testing results when challenged with a specific allergen. The correlation of allergy laboratory results with clinical history and in vivo reactivity to specific allergens is essential. A negative test may not rule out clinical allergy or even anaphylaxis. Performed By: [facility] [address] [place] [id number] Examination Supervisor: Gilmer iKrby MD, PhD CLIA Number: [id number] Performed By: #### C BCWD, CMP, LIPDR, ANION, EGFR1 #### [facility] [address] [place] [address] BOO SCREENon 07-27-2023 BOO SCREEN Not detected Normal None Detected [facility] Comment on above: Result Comment: If s uspicion of connective tissue disease is strong and BOO EIA is negative, consider testing for BOO by IFA ([id number]). INTERPRETIVE INFORMATION: Anti-Nuclear Abs , IgG by DIO Antinuclear Abs , IgG (DIO): BOO specimens are screened using enzyme-linked immunosorbent assay (DIO) methodology. All DIO results reported as Detected are further tested by indirect fluorescent assay (IFA) using HEp-2 substrate with an IgG-specific conjugate. The BOO DIO screen is designed to detect antibodies against dsDNA, histones, SS-A (Ro), SS-B (La), Huang, Huang/MANAGER IN TRAINING, Scl-70, Alexandrea-1, centromeric proteins, other antigens extracted from the HEp-2 cell nucleus. BOO DIO assays have been reported to have lower sensitivities than BOO IFA for systemic autoimmune rheumatic diseases (SARD). Negative results do not necessarily rule out SARD. Performed By: [facility] [address] [place] [address] Examination Supervisor: Gilmer Kirby MD, PhD CLIA Number: [id number] Performed By: #### C BCWD, CMP, LIPDR, ANION, EGFR1 #### [address] [address] LATEX, ALLERGEN, OCCUPATIONA Ritesh 07-27-2023 LATEX, ALLERGEN, OCCUPATIONAL SEE BELOW Normal [facility] Comment on above: Result Comment: Robby rgen, Occupational, Latex IgE En <0.10 <=0.34 kU/L Performed By: [facility] [address] [place], [place] [id number] Examination Supervisor: Gilmer Kirby MD, PhD CLIA Number: [id number] Performed By: #### C BCWD, CMP, LIPDR, ANION, EGFR1 #### [facility] [employer] [address] [place] [address] ALT (SGPT)on 07-24-2023 ALT [Catalytic activity/Vol] 24 U/L Normal 11-66 [facility] Comment on above: Performed By: #### C BCWD, CMP, LIPDR, ANION, EGFR1 #### [facility] [employer] [address] [place] [address] BUNon 07-24-2023 Urea nitrogen [Mass/Vol] 41 mg/dL High 7-22 [facility] Comment on above: Performed By: #### C BCWD, CMP, LIPDR, ANION, EGFR1 #### [facility] [address] [place] [address] CBC WITH DIFFERENTIALon 07-07 ABS BASOPHILS 0.1 thou/mm3 Normal 0.0-0.1 [facility] Comment on above: Performed By: #### A IISE, ANA2, LATX2 #### [facility] [address] [address] #### ALT, CBCWD, BUN, EGFR1, RF, CRE #### [place] [address] ABS EOSINOPHILS 0.4 thou/mm3 Normal 0.0-0.4 [facility] Comment on above: Performed By: #### A IISE, ANA2, LATX2 #### [facility] [address] [address] #### ALT, CBCWD, BUN, EGFR1, RF, CRE #### [place] [address] ABS IMMATURE GRANS (IG) 0.03 thou/mm3 Normal 0.00-0.07 [facility] Comment on above: Performed By: #### A IISE, ANA2, LATX2 #### [facility] [address] [address] #### ALT, CBCWD, BUN, EGFR1, RF, CRE #### [address] [address] ABS LYMPHOCYTES 1.4 thou/mm3 Normal 1.0-4.8 [facility] Comment on above: Performed By: #### A IISE, ANA2, LATX2 #### [facility] [address] [facility] [address] #### ALT, CBCWD, BUN, EGFR1, RF, CRE #### [address] [address] ABS MONOCYTES 0.7 thou/mm3 Normal 0.4-1.3 [facility] Comment on above: Performed By: #### A IISE, ANA2, LATX2 #### [facility] [address] [facility] [address] #### ALT, CBCWD, BUN, EGFR1, RF, CRE #### [facility] [address] [place] [address] ABS NEUTROPHILS 6.9 thou/mm3 Normal 1.8-7.7 [facility] Comment on above: Performed By: #### A IISE, ANA2, LATX2 #### [facility] [address] [facility] [address] #### ALT, CBCWD, BUN, EGFR1, RF, CRE #### [facility] [address] [place] [address] Basophils/100 WBC (Bld) 1.2 % Normal [facility] Comment on above: Performed By: #### A IISE, ANA2, LATX2 #### [facility] [address] [facility] [address] #### ALT, CBCWD, BUN, EGFR1, RF, CRE #### [address] [address] Eosinophils/100 WBC (Bld) 4.4 % Normal [facility] Comment on above: Performed By: #### A IISE, ANA2, LATX2 #### [facility] [address] [facility] [address] #### ALT, CBCWD, BUN, EGFR1, RF, CRE #### [address] [address] Erythrocyte distribution width (RBC) [Ratio] 15.4 % High 11.5-14.5 [facility] Comment on above: Performed By: #### A IISE, ANA2, LATX2 #### [facility] [address] [facility] [address] #### ALT, CBCWD, BUN, EGFR1, RF, CRE #### [address] [address] Hematocrit (Bld) [Volume fraction] 43.7 % Normal 37.0-47.0 [facility] Comment on above: Performed By: #### A IISE, ANA2, LATX2 #### [facility] [address] [facility] [address] #### ALT, CBCWD, BUN, EGFR1, RF, CRE #### [facility] [address] [place] [address] Hemoglobin (Bld) [Mass/Vol] 14.1 g/dL Normal 12.0-16.0 [facility] Comment on above: Performed By: #### A IISE, ANA2, LATX2 #### [facility] [address] [facility] [address] #### ALT, CBCWD, BUN, EGFR1, RF, CRE #### [facility] [address] [place] [address] IMMATURE GRANS (IG) 0.3 % Normal [facility] Comment on above: Performed By: #### A IISE, ANA2, LATX2 #### [facility] [address] [facility] [address] #### ALT, CBCWD, BUN, EGFR1, RF, CRE #### [address] [address] Lymphocytes/100 WBC (Bld) 15.0 % Normal [facility] Comment on above: Performed By: #### A IISE, ANA2, LATX2 #### [facility] [address] [facility] [address] #### ALT, CBCWD, BUN, EGFR1, RF, CRE #### [address] [address] MCH (RBC) [Entitic mass] 32.2 pg Normal 26.0-33.0 [facility] Comment on above: Performed By: #### A IISE, ANA2, LATX2 #### [facility] [address] [facility] [address] #### ALT, CBCWD, BUN, EGFR1, RF, CRE #### [address] [address] MCHC (RBC) [Mass/Vol] 32.3 g/dL Normal 32.2-35.5 [facility] Comment on above: Performed By: #### A IISE, ANA2, LATX2 #### [facility] [address] [facility] [address] #### ALT, CBCWD, BUN, EGFR1, RF, CRE #### [address] [address] MCV (RBC) [Entitic vol] 99.8 fL High 81.0-99.0 [facility] Comment on above: Performed By: #### A IISE, ANA2, LATX2 #### [facility] [address] [facility] [address] #### ALT, CBCWD, BUN, EGFR1, RF, CRE #### [facility] [address] [place] [address] Monocytes/100 WBC (Bld) 6.8 % Normal [facility] Comment on above: Performed By: #### A IISE, ANA2, LATX2 #### [facility] [address] [facility] [address] #### ALT, CBCWD, BUN, EGFR1, RF, CRE #### [facility] [address] [place] [address] Neutrophils/100 WBC (Bld) 72.3 % Normal [facility] Comment on above: Performed By: #### A IISE, ANA2, LATX2 #### [facility] [address] [facility] [address] #### ALT, CBCWD, BUN, EGFR1, RF, CRE #### [facility] [address] [place] [address] NRBC 0 /100 wbc Normal [facility] Comment on above: Performed By: #### A IISE, ANA2, LATX2 #### [facility] [address] [facility] [address] #### ALT, CBCWD, BUN, EGFR1, RF, CRE #### [facility] [address] [place] [address] PLATELET 249 thou/mm3 Normal 130-400 [facility] Comment on above: Performed By: #### A IISE, ANA2, LATX2 #### [facility] [address] [facility] [address] #### ALT, CBCWD, BUN, EGFR1, RF, CRE #### [facility] [address] [place] [address] Platelet mean volume (Bld) [Entitic vol] 9.9 fL Normal 9.4-12.4 [facility] Comment on above: Performed By: #### A IISE, ANA2, LATX2 #### [facility] [address] [facility] [address] #### ALT, CBCWD, BUN, EGFR1, RF, CRE #### [place] [address] RBC 4.38 mill/mm3 Normal 4.20-5.40 [facility] Comment on above: Performed By: #### A IISE, ANA2, LATX2 #### [facility] [address] [facility] [address] #### ALT, CBCWD, BUN, EGFR1, RF, CRE #### [place] [address] RDW-SD 56.9 fL High 35.0-45.0 [facility] Comment on above: Performed By: #### A IISE, ANA2, LATX2 #### [facility] [address] [address] #### ALT, CBCWD, BUN, EGFR1, RF, CRE #### [place] [address] WBC 9.6 thou/mm3 Normal 4.8-10.8 [facility] Comment on above: Performed By: #### A IISE, ANA2, LATX2 #### [facility] [address] [address] #### ALT, CBCWD, BUN, EGFR1, RF, CRE #### [place] [address] CREATININEon 07-24-2023 Creatinine [Mass/Vol] 1.4 mg/dL High 0.4-1.2 [facility] Comment on above: Performed By: #### C BCWD, CMP, LIPDR, ANION, EGFR1 #### [address] [address] GFR, ESTIMATEDon 07-24-2023 GFR/1.73 sq M.predicted MDRD (S/P/Bld) [Vol rate/Area] 39 mL/min/{1.73_m2} Abnormal >60 [facility] Comment on above: Result Comment: Libia atric calculator link https://www.kidney.org/professionals/kdoqi/gfr_calculatorped Effective Aug 08, 2022 These results are not intended for use in patients <18 years of age. eGFR results are calculated without a race factor using the 2020 CKD-EPI equation. Careful clinical correlation is recommended, particularly when comparing to results calculated using previous equations. The CKD-EPI equation is less accurate in patients with extremes of muscle mass, extra-renal metabolism of creatinine, excessive creatine ingestion, or following therapy that affects renal tubular secretion. Performed By: #### C BCWD, CMP, LIPDR, ANION, EGFR1 #### [place] [address] RHEUMATOID FACTORon 07-24-20 23 RHEUMATOID FACTOR < 10 Normal 0-13 [facility] Comment on above: Performed By: #### C BCWD, CMP, LIPDR, ANION, EGFR1 #### [place] [address] SED RATEon 07-24-2023 SED RATE 30 mm/hr High 0-20 [facility] Comment on above: Performed By: #### C BCWD, CMP, LIPDR, ANION, EGFR1 #### [place] [address] POC CREATININE WBon 07-11-20 Creatinine [Mass/Vol] 1.4 mg/dL High 0.5-1.2 [facility] Comment on above: Performed By: #### C BCWD, CMP, LIPDR, ANION, EGFR1 #### [place] [address] ANION GAPon 05-18-2023 Anion gap [Moles/Vol] 17.0 mmol/L High 8.0-16.0 [facility] Comment on above: Result Comment: ANIO N GAP = Sodium -(Chloride + CO2) Performed By: #### C BCWD, CMP, LIPDR, ANION, EGFR1 #### [place] [address] CBC WITH DIFFERENTIALon 05-06 ABS BASOPHILS 0.1 thou/mm3 Normal 0.0-0.1 [facility] Comment on above: Performed By: #### C BCWD, CMP, LIPDR, ANION, EGFR1 #### [place] [address] ABS EOSINOPHILS 0.3 thou/mm3 Normal 0.0-0.4 [facility] Comment on above: Performed By: #### C BCWD, CMP, LIPDR, ANION, EGFR1 #### [facility] [address] [place] [address] ABS IMMATURE GRANS (IG) 0.26 thou/mm3 High 0.00-0.07 [facility] Comment on above: Performed By: #### C BCWD, CMP, LIPDR, ANION, EGFR1 #### [address] [address] ABS LYMPHOCYTES 2.4 thou/mm3 Normal 1.0-4.8 [facility] Comment on above: Performed By: #### C BCWD, CMP, LIPDR, ANION, EGFR1 #### [address] [address] ABS MONOCYTES 1.0 thou/mm3 Normal 0.4-1.3 [facility] Comment on above: Performed By: #### C BCWD, CMP, LIPDR, ANION, EGFR1 #### [address] [address] ABS NEUTROPHILS 10.5 thou/mm3 High 1.8-7.7 [facility] Comment on above: Performed By: #### C BCWD, CMP, LIPDR, ANION, EGFR1 #### [address] [address] Basophils/100 WBC (Bld) 0.4 % Normal [facility] Comment on above: Performed By: #### C BCWD, CMP, LIPDR, ANION, EGFR1 #### [facility] [address] [place] [address] Eosinophils/100 WBC (Bld) 2.2 % Normal [facility] Comment on above: Performed By: #### C BCWD, CMP, LIPDR, ANION, EGFR1 #### [facility] [address] [place] [address] Erythrocyte distribution width (RBC) [Ratio] 15.9 % High 11.5-14.5 [facility] Comment on above: Performed By: #### C BCWD, CMP, LIPDR, ANION, EGFR1 #### [place] [address] Hematocrit (Bld) [Volume fraction] 44.9 % Normal 37.0-47.0 [facility] Comment on above: Performed By: #### C BCWD, CMP, LIPDR, ANION, EGFR1 #### [place] [address] Hemoglobin (Bld) [Mass/Vol] 14.7 g/dL Normal 12.0-16.0 [facility] Comment on above: Performed By: #### C BCWD, CMP, LIPDR, ANION, EGFR1 #### [place] [address] IMMATURE GRANS (IG) 1.8 % Normal [facility] Comment on above: Performed By: #### C BCWD, CMP, LIPDR, ANION, EGFR1 #### [place] [address] Lymphocytes/100 WBC (Bld) 16.3 % Normal [facility] Comment on above: Performed By: #### C BCWD, CMP, LIPDR, ANION, EGFR1 #### [place] [address] MCH (RBC) [Entitic mass] 32.5 pg Normal 26.0-33.0 [facility] Comment on above: Performed By: #### C BCWD, CMP, LIPDR, ANION, EGFR1 #### [place] [address] MCHC (RBC) [Mass/Vol] 32.7 g/dL Normal 32.2-35.5 [facility] Comment on above: Performed By: #### C BCWD, CMP, LIPDR, ANION, EGFR1 #### [place] [address] MCV (RBC) [Entitic vol] 99.1 fL High 81.0-99.0 [facility] Comment on above: Performed By: #### C BCWD, CMP, LIPDR, ANION, EGFR1 #### [address] [address] Monocytes/100 WBC (Bld) 7.1 % Normal [facility] Comment on above: Performed By: #### C BCWD, CMP, LIPDR, ANION, EGFR1 #### [address] [address] Neutrophils/100 WBC (Bld) 72.2 % Normal [facility] Comment on above: Performed By: #### C BCWD, CMP, LIPDR, ANION, EGFR1 #### [address] [address] NRBC 0 /100 wbc Normal [facility] Comment on above: Performed By: #### C BCWD, CMP, LIPDR, ANION, EGFR1 #### [address] [address] PLATELET 219 thou/mm3 Normal 130-400 [facility] Comment on above: Performed By: #### C BCWD, CMP, LIPDR, ANION, EGFR1 #### [address] [address] Platelet mean volume (Bld) [Entitic vol] 11.0 fL Normal 9.4-12.4 [facility] Comment on above: Performed By: #### C BCWD, CMP, LIPDR, ANION, EGFR1 #### [address] [address] RBC 4.53 mill/mm3 Normal 4.20-5.40 [facility] Comment on above: Performed By: #### C BCWD, CMP, LIPDR, ANION, EGFR1 #### [address] [address] RDW-SD 58.0 fL High 35.0-45.0 [facility] Comment on above: Performed By: #### C BCWD, CMP, LIPDR, ANION, EGFR1 #### [address] [address] WBC 14.6 thou/mm3 High 4.8-10.8 [facility] Comment on above: Performed By: #### C BCWD, CMP, LIPDR, ANION, EGFR1 #### [address] [address] COMP. METABOLIC PANELon 05-06 Albumin [Mass/Vol] 3.9 g/dL Normal 3.5-5.1 [facility] Comment on above: Performed By: #### C BCWD, CMP, LIPDR, ANION, EGFR1 #### [address] [address] ALP [Catalytic activity/Vol] 98 U/L Normal 38-126 [facility] Comment on above: Performed By: #### C BCWD, CMP, LIPDR, ANION, EGFR1 #### [address] [address] ALT [Catalytic activity/Vol] 36 U/L Normal 11-66 [facility] Comment on above: Performed By: #### C BCWD, CMP, LIPDR, ANION, EGFR1 #### [address] [address] AST [Catalytic activity/Vol] 17 U/L Normal 5-40 [facility] Comment on above: Performed By: #### C BCWD, CMP, LIPDR, ANION, EGFR1 #### [address] [address] Bilirubin [Mass/Vol] 0.4 mg/dL Normal 0.3-1.2 [facility] Comment on above: Performed By: #### C BCWD, CMP, LIPDR, ANION, EGFR1 #### [address] [address] Calcium [Mass/Vol] 9.1 mg/dL Normal 8.5-10.5 [facility] Comment on above: Performed By: #### C BCWD, CMP, LIPDR, ANION, EGFR1 #### [address] [address] Chloride [Moles/Vol] 106 mmol/L Normal 98-111 [facility] Comment on above: Performed By: #### C BCWD, CMP, LIPDR, ANION, EGFR1 #### [facility] [employer] [address] [place] [address] CO2 [Moles/Vol] 22 mmol/L Low 23-33 [facility] Comment on above: Performed By: #### C BCWD, CMP, LIPDR, ANION, EGFR1 #### [facility] [address] [place] [address] Creatinine [Mass/Vol] 1.1 mg/dL Normal 0.4-1.2 [facility] Comment on above: Performed By: #### C BCWD, CMP, LIPDR, ANION, EGFR1 #### [facility] [address] [place] [address] Glucose [Mass/Vol] 152 mg/dL High 70-108 [facility] Comment on above: Performed By: #### C BCWD, CMP, LIPDR, ANION, EGFR1 #### [address] [address] Potassium [Moles/Vol] 4.4 mmol/L Normal 3.5-5.2 [facility] Comment on above: Performed By: #### C BCWD, CMP, LIPDR, ANION, EGFR1 #### [address] [address] Protein [Mass/Vol] 6.2 g/dL Normal 6.1-8.0 [facility] Comment on above: Performed By: #### C BCWD, CMP, LIPDR, ANION, EGFR1 #### [address] [address] Sodium [Moles/Vol] 145 mmol/L Normal 135-145 [facility] Comment on above: Performed By: #### C BCWD, CMP, LIPDR, ANION, EGFR1 #### [facility] [address] [place] [address] Urea nitrogen [Mass/Vol] 48 mg/dL High 7-22 [facility] Comment on above: Performed By: #### C BCWD, CMP, LIPDR, ANION, EGFR1 #### [facility] [employer] [address] [place] [address] GFR, ESTIMATEDon 05-18-2023 GFR/1.73 sq M.predicted MDRD (S/P/Bld) [Vol rate/Area] 52 mL/min/{1.73_m2} Abnormal >60 [facility] Comment on above: Result Comment: Libia guzmanc calculator link https://www.kidney.org/professionals/kdoqi/gfr_calculatorped Effective Aug 08, 2022 These results are not intended for use in patients <18 years of age. eGFR results are calculated without a race factor using the 2020 CKD-EPI equation. Careful clinical correlation is recommended, particularly when comparing to results calculated using previous equations. The CKD-EPI equation is less accurate in patients with extremes of muscle mass, extra-renal metabolism of creatinine, excessive creatine ingestion, or following therapy that affects renal tubular secretion. Performed By: #### C BCWD, CMP, LIPDR, ANION, EGFR1 #### [facility] [address] [place] [address] LIPID PANEL W/ RFX DIRECT LD Ritesh 05-18-2023 Cholesterol [Mass/Vol] 195 mg/dL Normal 100-199 [facility] Comment on above: Result Comment: <200 Desirable 200 - 239 Borderline High >239 High Performed By: #### C BCWD, CMP, LIPDR, ANION, EGFR1 #### [facility] [address] [place] [address] Cholesterol in HDL [Mass/Vol] 50 mg/dL Normal [facility] Comment on above: Result Comment: Refe r to General Chemistry for CHOL and TRIG results. HDL CLASSIFICATIONS FOR PATIENTS > 20 YEARS OLD. <40 Undesirable (Major Risk Factor) >60 Protective (Negative Risk Factor) Performed By: #### C BCWD, CMP, LIPDR, ANION, EGFR1 #### [facility] [address] [place] [address] Cholesterol in LDL [Mass/Vol] 104 mg/dL Normal [facility] Comment on above: Result Comment: Refe r to General Chemistry for CHOL and TRIG results. LDL CLASSIFICATIONS FOR PATIENTS >20 YEARS OLD: Determination Invalid if TRIG >400 <100 Optimal 100 - 129 Near or Above Optimal 130 - 159 Borderline High 160 - 189 High Risk >189 Very High Risk Performed By: #### C BCWD, CMP, LIPDR, ANION, EGFR1 #### [facility] [address] [place] [address] Triglyceride [Mass/Vol] 204 mg/dL High 0-199 [facility] Comment on above: Result Comment: <150 Desirable 150 - 199 Borderline High 200 - 499 High >449 Very High Ranges are based upon NCEP/ATP III guidelines. Performed By: #### C BCWD, CMP, LIPDR, ANION, EGFR1 #### [facility] [address] [place] [address] CBC AND ELECTRONIC DIFFon Basophils (Bld) [#/Vol] 0.06 10*3/uL Normal 0.00-0.[address] [facility] Comment on above: Performed By: #### L AB980 #### [facility] (DEFAULT) [address] [address] Basophils/100 WBC (Bld) 0.7 % Normal [facility] Comment on above: Performed By: #### L AB980 #### [facility] (DEFAULT) [address] [address] DIFF STATUS Electronic Differential Normal [facility] Comment on above: Performed By: #### L AB980 #### [facility] (DEFAULT) [address] [address] Eosinophils (Bld) [#/Vol] 0.28 10*3/uL Normal 0.00-0.[address] [facility] Comment on above: Performed By: #### L AB980 #### [facility] (DEFAULT) [address] [address] Eosinophils/100 WBC (Bld) 3.4 % Normal [facility] Comment on above: Performed By: #### L AB980 #### [facility] (DEFAULT) [address] [address] Hematocrit (Bld) [Volume fraction] 40.7 % Normal 34.9-44.[address] [facility] Comment on above: Performed By: #### L AB980 #### [facility] (DEFAULT) [address] [address] Hemoglobin (Bld) [Mass/Vol] 13.6 g/dL Normal 11.4-15.[address] [facility] Comment on above: Performed By: #### L AB980 #### [facility] (DEFAULT) [address] [address] Immature Grans % 0.5 % Normal [facility] Comment on above: Performed By: #### L AB980 #### [facility] (DEFAULT) [address] [address] Immature Grans Absolute 0.04 K/uL Normal <=0.[address] [facility] Comment on above: Performed By: #### L AB980 #### [facility] (DEFAULT) [address] [address] Lymphocytes (Bld) [#/Vol] 1.12 10*3/uL Low 1.16-3.[address] [facility] Comment on above: Performed By: #### L AB980 #### [facility] (DEFAULT) [address] [address] Lymphocytes/100 WBC (Bld) 13.6 % Normal [facility] Comment on above: Performed By: #### L AB980 #### [facility] (DEFAULT) [address] [address] MCV (RBC) [Entitic vol] 96.2 fL Normal 79.6-97.[address] [facility] Comment on above: Performed By: #### L AB980 #### [facility] (DEFAULT) [address] [address] Mean Cell Hgb 32.2 pg Normal 25.9-33.[address] [facility] Comment on above: Performed By: #### L AB980 #### [facility] (DEFAULT) [address] [address] Mean Cell Hgb Conc 33.4 g/dL Normal 31.4-35.9 [facility] Comment on above: Performed By: #### L AB980 #### [facility] (DEFAULT) [address] [place] [address] Monocytes (Bld) [#/Vol] 0.78 10*3/uL Normal 0.22-0.[address] [facility] Comment on above: Performed By: #### L AB980 #### [facility] (DEFAULT) [address] [place] [address] Monocytes/100 WBC (Bld) 9.5 % Normal [facility] Comment on above: Performed By: #### L AB980 #### [facility] (DEFAULT) [address] [place] [address] Nucleated RBC 0.0 /100 WBC Normal <=0.2 [facility] Comment on above: Performed By: #### L [id number] #### [facility] (DEFAULT) [address] [place] [address] Platelet mean volume (Bld) [Entitic vol] 10.4 fL Normal 8.5-12.[address] [facility] Comment on above: Performed By: #### L [id number] #### [facility] (DEFAULT) [address] [place] [address] Platelets (Bld) [#/Vol] 190 10*3/uL Normal 150-[address] [facility] Comment on above: Performed By: #### L [id number] #### [facility] (DEFAULT) [address] [place] [address] RBC (Bld) [#/Vol] 4.23 10*6/uL Normal 3.91-5.[address] [facility] Comment on above: Performed By: #### L [id number] #### [facility] (DEFAULT) [address] [place] [address] RBC Distribution 16.4 % High 10.8-14.9 [facility] Comment on above: Performed By: #### L AB980 #### [facility] (DEFAULT) [address] [place] [address] Segs + Bands Auto 72.3 % Normal [facility] Comment on above: Performed By: #### L [id number] #### [facility] (DEFAULT) [address] [place] [address] Segs + Bands,Absolute Auto 5.94 K/uL Normal 1.64-7.[address] [facility] [address] [facility] Comment on above: Performed By: #### L [id number] #### [facility] (DEFAULT) [address] [place] [address] 77258 WBC (Bld) [#/Vol] 8.22 10*3/uL Normal 3.99-11.[address] [facility] Comment on above: Performed By: #### L [id number] #### [facility] (DEFAULT) [address] [place] [address] 36096 CHM 7 - EDon 03-03-2023 Anion gap [Moles/Vol] 12 mmol/L Normal 7-17 [facility] Comment on above: Performed By: #### C 7ED #### [facility] (DEFAULT) [address] [place] [address] 33913 Chloride [Moles/Vol] 107 mmol/L Normal 98-[address] [facility] Comment on above: Performed By: #### C 7ED #### [facility] (DEFAULT) [address] [place] [address] 77211 CO2 [Moles/Vol] 23 mmol/L Normal 21-31 [facility] Comment on above: Performed By: #### C 7ED #### [facility] (DEFAULT) [address] [place] [address] 96663 Creatinine [Mass/Vol] 1.04 mg/dL Normal 0.50-1.20 [facility] Comment on above: Performed By: #### C 7ED #### [facility] (DEFAULT) [address] [place] [address] 12442 GFR/1.73 sq M.predicted among non-blacks MDRD (S/P/Bld) [Vol rate/Area] 56 mL/min/{1.73_m2} Low >=[address] [facility] Comment on above: Result Comment: Repo rted eGFR is based on the CKD-EPI 2020 equation using creatinine, age, and sex. Performed By: #### Nathan 7ED #### Joselyn [facility] (DEFAULT) [address] [place] [address] 56615 Glucose [Mass/Vol] 100 mg/dL High 70-99 [facility] Comment on above: Performed By: #### C 7ED #### Joselyn [facility] (DEFAULT) [address] [place] [address] 49892 Osmolality [Osmolality] 298 mosm/kg Normal 278-[address] [facility] Comment on above: Performed By: #### Nathan 7ED #### [facility] (DEFAULT) [address] [place] [address] 18854 Potassium [Moles/Vol] 4.0 mmol/L Normal 3.5-5.0 [facility] Comment on above: Performed By: #### Nathan 7ED #### Joselyn [facility] (DEFAULT) [address] [place] [address] 11618 Sodium [Moles/Vol] 138 mmol/L Normal 135-145 [facility] Comment on above: Performed By: #### Nathan 7ED #### Joselyn [facility] (DEFAULT) [address] [place] [address] 22313 Urea nitrogen [Mass/Vol] 38 mg/dL High 7-[address] [facility] Comment on above: Performed By: #### C 7ED #### Joselyn [facility] (DEFAULT) [address] [place] [address] 58706 Urea nitrogen/Creatinine [Mass ratio] 37 mg/mg Normal [facility] Comment on above: Performed By: #### Nathan 7ED #### Joselyn [facility] (DEFAULT) [address] [place] [address] 47645 XR SHOULDER RIGHT (MIN 2 VIE WS)on 09-06-2022 No fracture or dislocation. Final report electronically signed by Dr. Richar Denton on 09/06/2022 2:12 PM [facility] Richar Lorenzana MD - 09/06/2022 PROCEDURE: XR SHOULDER RIGHT (MIN 2 VIEWS) CLINICAL INFORMATION: Right shoulder pain TECHNIQUE: 3 views of the right shoulder COMPARISON: None FINDINGS: There is no fracture or dislocation. Joint space narrowing is present at the acromioclavicular joint. Soft tissues are unremarkable. IMPRESSION: No fracture or dislocation. Final report electronically signed by Dr. Richar Denton on 09/06/2022 2:12 PM [employer] Work Phone: Radiology Study observation (narrative) [employer] Work Phone: XR SHOULDER RIGHT (MIN 2 VIE WS)Ordered By: Richar Denton on 09-06-2022 [employer] Work Phone: FLUORO FOR SURGICAL PROCEDUR ESon 08-16-2022 Radiology exam is complete. No Radiologist dictation. Please follow up with ordering provider. [facility] Anion Gapon 07-03-2022 Anion gap [Moles/Vol] 14.0 mmol/L 8 - 16 meq/L [facility] Comment on above: ANION GAP = Sodium - (Chloride + CO2) Performed at [facility] [address] [place] [address] CBC with Auto Differentialon 07-03-2022 Basophils (Bld) [#/Vol] 0.1 10*3/uL [facility] Basophils/100 WBC (Bld) 1 % [facility] Eosinophils Absolute 0.5 High [employer] Eosinophils/100 WBC (Bld) 4.3 % [employer] [facility] Erythrocyte distribution width (RBC) [Ratio] 14.7 % High 11.5 - 14.5 % [employer] [facility] Erythrocyte distribution width (RBC) [Ratio] 53.2 fL High 35 - 45 fL [employer] [facility] Hematocrit (Bld) [Volume fraction] 42.9 % 37 - 47 % [employer] Hemoglobin (Bld) [Mass/Vol] 14.1 g/dL [facility] Immature Grans (Abs) 0.04 [employer] [facility] Immature granulocytes/100 WBC (Bld) 0.4 % [facility] Interpretation and review of laboratory results Abnormal [facility] Lymphocytes Absolute 1.4 [facility] Lymphocytes/100 WBC (Bld) 13.2 % [facility] MCH (RBC) [Entitic mass] 32.0 pg 26 - 33 pg [facility] MCHC (RBC) [Mass/Vol] 32.9 g/dL [facility] MCV (RBC) [Entitic vol] 97.3 fL 81 - 99 fL [facility] Monocytes Absolute 0.6 [facility] Monocytes/100 WBC (Bld) 6 % [facility] nRBC 0 /100 wbc [facility] Comment on above: Performed at [facility] [address] [place] [address] [id number] Platelet mean volume (Bld) [Entitic vol] 10.3 fL 9.4 - 12.4 fL [facility] Platelets (Bld) [#/Vol] 246 10*3/uL [facility] RBC (Bld) [#/Vol] 4.41 10*6/uL [facility] Segmented neutrophils/100 WBC (Bld) 75.1 % [facility] Segs Absolute 8.0 High [facility] WBC (Bld) [#/Vol] 10.7 10*3/uL [facility] COVID-19, Rapidon 07-03-2022 SARS-CoV-2 (COVID-19) RNA BASIL+probe Ql (Unsp spec) Not detected NOT DETECTED [facility] Comment on above: Rapid NAAT: Negativ e results should be treated as presumptive and, if inconsistent with clinical signs and symptoms or necessary for patient management, should be tested with an alternative molecular assay. Negative results do not preclude SARS-CoV-2 infection and should not be used as the sole basis for patient management decisions. This test has been authorized by the FDA under an Emergency Use Authorization (EUA) for use by authorized laboratories. Fact sheet for Healthcare Providers: https://www.fda.gov/media/123263/download Fact sheet for Patients: https://www.fda.gov/media/271486/download METHODOLOGY: Isothermal Nucleic Acid Amplification Performed at [facility] [address] [place] [address] [facility] CT HEAD WO CONTRASTon 2021 No acute intracrania l findings. Chronic changes as described. This document has been electronically signed by: Paula Shah MD on 07/03/2022 06:52 AM All CTs at this facility use dose modulation techniques and iterative reconstructions, and/or weight-based dosing when appropriate to reduce radiation to a low as reasonably achievable. [facility] CT head without contrast Comparison: None Findings: No intracranial mass, midline shift, hydrocephalus, or acute hemorrhage. Nonspecific scattered white matter changes, most likely reflective of chronic small vessel ischemic changes in patient of this age. No mastoid effusion. No air fluid levels in paranasal sinuses. No acute fracture. [facility] Paula Jaramillo MD - 07/03/2022 CT head without contrast Comparison: None Findings: No intracranial mass, midline shift, hydrocephalus, or acute hemorrhage. Nonspecific scattered white matter changes, most likely reflective of chronic small vessel ischemic changes in patient of this age. No mastoid effusion. No air fluid levels in paranasal sinuses. No acute fracture. IMPRESSION: No acute intracranial findings. Chronic changes as described. This document has been electronically signed by: Paula Shah MD on 07/03/2022 06:52 AM All CTs at this facility use dose modulation techniques and iterative reconstructions, and/or weight-based dosing when appropriate to reduce radiation to a low as reasonably achievable. [facility] [employer] Work Phone: CT HEAD WO CONTRASTOrdered B y: Paula Shah on 07-03-2022 [facility] Work Phone: CTA HEAD W WO CONTRASTon No acute pathology. No significant stenosis, occlusion, dissection, or aneurysm in the head. This document has been electronically signed by: Paula Shah MD on 07/03/2022 07:05 AM All CTs at this facility use dose modulation techniques and iterative reconstructions, and/or weight-based dosing when appropriate to reduce radiation to a low as reasonably achievable. 3D Post-processing was performed on this study. [facility] Exam: CTA head with IV contrast Comparison: CT,SR - CT HEAD WO CONTRAST - 07/03/2022 06:21 AM EDT Findings: Intracranial carotid arteries: No significant stenosis, occlusion, dissection, or aneurysm bilaterally. Middle cerebral arteries: No significant stenosis, occlusion, dissection, or aneurysm bilaterally. Anterior cerebral arteries: No significant stenosis, occlusion, dissection, or aneurysm bilaterally. No anterior communicating artery aneurysm. Posterior cerebral arteries: No significant stenosis, occlusion, dissection, or aneurysm bilaterally. No posterior communicating artery aneurysm. Basilar artery: No significant stenosis, occlusion, dissection, or aneurysm. Soft tissues: No acute pathology. Bones: No acute pathology. [facility] Paula Shah MD - 07/03/2022 Exam: CTA head with IV contrast Comparison: CT,SR - CT HEAD WO CONTRAST - 07/03/2022 06:21 AM EDT Findings: Intracranial carotid arteries: No significant stenosis, occlusion, dissection, or aneurysm bilaterally. Middle cerebral arteries: No significant stenosis, occlusion, dissection, or aneurysm bilaterally. Anterior cerebral arteries: No significant stenosis, occlusion, dissection, or aneurysm bilaterally. No anterior communicating artery aneurysm. Posterior cerebral arteries: No significant stenosis, occlusion, dissection, or aneurysm bilaterally. No posterior communicating artery aneurysm. Basilar artery: No significant stenosis, occlusion, dissection, or aneurysm. Soft tissues: No acute pathology. Bones: No acute pathology. IMPRESSION: No acute pathology. No significant stenosis, occlusion, dissection, or aneurysm in the head. This document has been electronically signed by: Paula Shah MD on 07/03/2022 07:05 AM All CTs at this facility use dose modulation techniques and iterative reconstructions, and/or weight-based dosing when appropriate to reduce radiation to a low as reasonably achievable. 3D Post-processing was performed on this study. [facility] Work Phone: [facility] Work Phone: CTA NECK W WO CONTRASTon No arterial occlusio n, dissection, or aneurysm through the neck. Critical stenosis left ICA proximally, approximating 70% per NASCET criteria. Scattered bilateral lung consolidations, incompletely evaluated. This document has been electronically signed by: Paula Shah MD on 07/03/2022 07:15 AM All CTs at this facility use dose modulation techniques and iterative reconstructions, and/or weight-based dosing when appropriate to reduce radiation to a low as reasonably achievable. Carotid stenosis and measurements are in accordance with NASCET criteria. 3D Post-processing was performed on this study. [facility] ADDENDUM #1 Receipt of this report by the clinical staff was confirmed with TURNER FERNANDEZ on Jul 03, 2022 07:33:00 EDT. This document has been electronically signed by: Natanael Pineda on 07/03/2022 07:33 AM ORIGINAL REPORT Exam: CTA neck with IV contrast Comparison: None Findings: Right common carotid artery: No significant stenosis, occlusion, dissection, or aneurysm. Right internal carotid artery: Approximately 50% stenosis proximally per NASCET criteria due to combination calcified and soft plaque. Left common carotid artery: No significant stenosis, occlusion, dissection, or aneurysm. Left internal carotid artery: Approximately 70% stenosis proximally per NASCET criteria due to combination calcified and soft plaque. Vertebral arteries: No significant stenosis, occlusion, dissection, or aneurysm bilaterally. Upper chest: Scattered bilateral lung consolidations, incompletely evaluated. Soft tissues: No acute pathology. Bones: No acute pathology. Degenerative spinal changes. [facility] Paula Shah MD - 07/03/2022 ADDENDUM #1 Receipt of this report by the clinical staff was confirmed with TURNER FERNANDEZ on Jul 03, 2022 07:33:00 EDT. This document has been electronically signed by: Natanael Pineda on 07/03/2022 07:33 AM ORIGINAL REPORT Exam: CTA neck with IV contrast Comparison: None Findings: Right common carotid artery: No significant stenosis, occlusion, dissection, or aneurysm. Right internal carotid artery: Approximately 50% stenosis proximally per NASCET criteria due to combination calcified and soft plaque. Left common carotid artery: No significant stenosis, occlusion, dissection, or aneurysm. Left internal carotid artery: Approximately 70% stenosis proximally per NASCET criteria due to combination calcified and soft plaque. Vertebral arteries: No significant stenosis, occlusion, dissection, or aneurysm bilaterally. Upper chest: Scattered bilateral lung consolidations, incompletely evaluated. Soft tissues: No acute pathology. Bones: No acute pathology. Degenerative spinal changes. IMPRESSION: No arterial occlusion, dissection, or aneurysm through the neck. Critical stenosis left ICA proximally, approximating 70% per NASCET criteria. Scattered bilateral lung consolidations, incompletely evaluated. This document has been electronically signed by: Paula Shah MD on 07/03/2022 07:15 AM All CTs at this facility use dose modulation techniques and iterative reconstructions, and/or weight-based dosing when appropriate to reduce radiation to a low as reasonably achievable. Carotid stenosis and measurements are in accordance with NASCET criteria. 3D Post-processing was performed on this study. [facility] Work Phone: [facility] Work Phone: Comprehensive Metabolic Pane l w/ Reflex to MGon 07-03-2022 Albumin [Mass/Vol] 4.3 g/dL 3.5 - 5.1 g/dL [facility] ALP (Bld) [Catalytic activity/Vol] 96 U/L 38 - 126 U/L [facility] ALT [Catalytic activity/Vol] 13 U/L 11 - 66 U/L [facility] Comment on above: Performed at [facility] [address] [place] [address] AST [Catalytic activity/Vol] 17 U/L 5 - 40 U/L [facility] Bilirubin [Mass/Vol] 0.3 mg/dL 0.3 - 1 .2 mg/dL [facility] Calcium [Mass/Vol] 9.4 mg/dL 8.5 - 10. 5 mg/dL [facility] Chloride [Moles/Vol] 104 mmol/L 98 - 11 1 meq/L [facility] CO2 [Moles/Vol] 23 mmol/L 23 - 33 meq/L [facility] Creatinine [Mass/Vol] 1 mg/dL 0.4 - 1.2 mg/dL [facility] Free PSA/Total PSA [Mass fraction] 7.0 g/dL 6.1 - 8 g/dL [facility] Glucose [Mass/Vol] 141 mg/dL High 70 - 108 mg/dL [facility] Potassium [Moles/Vol] 4 mmol/L 3.5 - 5.2 meq/L [facility] Sodium [Moles/Vol] 141 mmol/L 135 - 145 meq/L [facility] Urea nitrogen (BldV) [Mass/Vol] 36 mg/dL High 7 - 22 mg/dL [facility] Glomerular Filtration Rate, Estimatedon 07-03-2022 GFR/1.73 sq M.predicted MDRD (S/P/Bld) [Vol rate/Area] 54 mL/min/{1.73_m2} Abnormal ml/min/1.73m 2 [facility] Comment on above: Stage Description G FR, ml/min/1.73 m2 - At increased risk > or = 60 (with chronic kidney disease risk factors) 1 Normal or increased GFR > or = 90 2 Mildly or decreased GFR 60 - 89 3 Moderately decreased GFR 30 - 59 4 Severely decreased GFR 15 - 29 5 Kidney failure <15 (or dialysis) Estimated GFR calculated using abbreviated MDRD formula as recommended by National Kid[employer] Foundation. Calculation based upon serum creatinine and adjusted for age, gender & race. Susan. Internal Med., Vol. 139 (2) pg 137-147. Performed at [facility] [place] [address] MRI BRAIN WO CONTRASTon 06-07 1. No evidence of an acute infarct. 2. Mild global volume loss. 3. Mild severity chronic small vessel ischemic changes. This report has been created using voice recognition software. It may contain minor errors which are inherent in voice recognition technology. Final report electronically signed by Dr. Tricia Pérez on 07/03/2022 8:53 AM [facility] Tricia Canada MD - 07/03/2022 PROCEDURE: MRI BRAIN WO CONTRAST CLINICAL INFORMATION Dizziness. Dizziness for one day. COMPARISON: Head CT 07/03/2022. TECHNIQUE: Multiplanar and multiple spin echo MRI images were obtained of the brain without contrast. FINDINGS: The diffusion-weighted images are normal. The brain volume is mildly reduced. There is a mild amount of signal hyperintensity on the FLAIR and T2-weighted sequences in the white matter of the brain. This is consistent with mild severity chronic small vessel ischemic changes. There are no intra-or extra-axial collections. There is no hydrocephalus, midline shift or mass effect. There is no susceptibility artifact in the brain. The major intracranial vascular flow voids are present. The midline craniocervical junction structures are normal. The pituitary gland and brainstem are normal. There is a small area of mucosal thickening along the floor the left maxillary sinus. IMPRESSION: 1. No evidence of an acute infarct. 2. Mild global volume loss. 3. Mild severity chronic small vessel ischemic changes. This report has been created using voice recognition software. It may contain minor errors which are inherent in voice recognition technology. Final report electronically signed by Dr. Tricia Pérez on 07/03/2022 8:53 AM [facility] [employer] Work Phone: MRI BRAIN WO CONTRASTOrdered By: Tricia Pérez on 07-03-2022 [facility] Work Phone: No Panel Informationon 07-03 Radiology Study observation (narrative) [facility] [employer] Work Phone: Interpretation and review of laboratory results Abnormal [facility] [employer] [facility] [employer] Osmolalityon 07-03-2022 Osmolality Calc 292.0 [facility] [employer] Comment on above: Performed at [facility] [address] [place] [address] Troponinon 07-03-2022 Troponin T < 0.010 ng/ml [facility] [employer] Comment on above: <0.010 ng/ml Normal > or = 0.010 ng/ml Elevated (99%) Consistent with myocardial damage Cardiac troponin values can be elevated by many disease states in addition to acute ischemia. These include, but are not limited to: chronic renal failure, CHF, CVA, pulmonary embolus, COPD, myocardial trauma/surgery, myocarditis, pericarditis, tachycardia, aortic dissection, amyloidosis, sepsis and strenuous exercise. Serial measurement of troponin is strongly recommended as a first step in determining whether a low level elevation represents an acute or chronic condition. Performed at [employer] [address] [place] [address] [facility] Urine with Reflexed Microon 07-03-2022 Amorphous, UA URATES NONE SEEN [facility] Bacteria, UA NONE SEEN FEW/NONE SEEN /hpf [facility] Bilirubin Urine Negative NEGATIVE [facility] Blood, Urine Negative NEGATIVE [facility] HEALTH CASTS 2 4-8 FINE GRAN NONE SEEN /lpf [facility] Casts UA 0-4 HYALINE NONE SEEN /lpf [facility] Character, Urine CLEAR CLEAR-SL CLOUD [facility] Color, UA YELLOW STRAW-YELLOW [facility] Crystals, UA NONE SEEN NONE SEEN [facility] Epithelial Cells, UA 5-10 3-5/hpf /hpf [facility] Glucose, Ur Negative NEGATIVE mg/dl [facility] Ketones Ql (U) TRACE Abnormal NEGATIVE [facility] Leukocyte esterase Test strip Ql (U) SMALL Abnormal NEGATIVE [facility] MISCELLANEOUS 2 NONE SEEN [facility] Comment on above: Performed at [facility] [address] [place] [address] Nitrite, Urine Negative NEGATIVE [facility] pH, UA 6.0 5 - 9 [facility] Protein, UA TRACE Abnormal NEGATIVE [facility] RBC, UA 0-2 0-2/hpf /hpf [facility] Renal Epithelial, UA NONE SEEN NONE SEEN [facility] Specific [place], Urine 1.022 1.002 - 1.03 [facility] Urobilinogen, Urine 0.2 [facility] WBC, UA 0-2 0-4/hpf /hpf [facility] Yeast, UA NONE SEEN NONE SEEN [facility] FLUORO FOR SURGICAL PROCEDUR ESon 05-30-2022 Radiology exam is complete. No Radiologist dictation. Please follow up with ordering provider. [facility] FLUORO FOR SURGICAL PROCEDUR ESon 04-14-2022 Radiology exam is complete. No Radiologist dictation. Please follow up with ordering provider. [facility] FLUORO FOR SURGICAL PROCEDUR ESon 12-20-2021 Radiology exam is complete. No Radiologist dictation. Please follow up with ordering provider. [facility] FLUORO FOR SURGICAL PROCEDUR ESon 10-11-2021 Radiology exam is complete. No Radiologist dictation. Please follow up with ordering provider. [facility] FLUORO FOR SURGICAL PROCEDUR ESOrdered By: Balbina Burns on 10-11-2021 [employer] Phone: Radiology Study observation (narrative) [employer] Phone: FLUORO FOR SURGICAL PROCEDUR ESOrdered By: Julian Spain on 06-07-2021 Radiology exam is complete. No Radiologist dictation. Please follow up with ordering provider. [employer] Phone: [employer] Phone: US ABDOMEN LIMITED Specify o rgan? LIVER, PANCREAS, GALLBLADDERon 01-07-2021 Obscured pancreas. Otherwise normal right upper quadrant ultrasound. This report has been created using voice recognition software. It may contain minor errors which are inherent in voice recognition technology. Final report electronically signed by Dr. Julio Kerr on 01/07/2021 4:58 PM [employer] Phone: PROCEDURE: US ABDOME N LIMITED CLINICAL INFORMATION: Abdominal pain, epigastric, Constipation, unspecified constipation type. COMPARISON: CT abdomen and pelvis of 10/16/2015. TECHNIQUE: Multiplanar sonographic images were obtained of the structures in the right upper quadrant. FINDINGS: The liver is of normal echogenicity. No masses are noted. 14.6 cm long The pancreas is obstructed by overlying bowel gas The gallbladder is not distended. 8.2 x 2.0 x 2.9 cm volume There is no pericholecystic fluid or gallbladder wall edema. No gallstones are identified. The common bile duct is normal and measures 5.0. mm. There is no hydronephrosis in the visualized aspects of the right kidney. [employer] Phone: Brayan, [facility] [place] Incoming Radiant Results From [employer] - 01/07/2021 5:00 PM EST PROCEDURE: US ABDOMEN LIMITED CLINICAL INFORMATION: Abdominal pain, epigastric, Constipation, unspecified constipation type. COMPARISON: CT abdomen and pelvis of 10/16/2015. TECHNIQUE: Multiplanar sonographic images were obtained of the structures in the right upper quadrant. FINDINGS: The liver is of normal echogenicity. No masses are noted. 14.6 cm long The pancreas is obstructed by overlying bowel gas The gallbladder is not distended. 8.2 x 2.0 x 2.9 cm volume There is no pericholecystic fluid or gallbladder wall edema. No gallstones are identified. The common bile duct is normal and measures 5.0. mm. There is no hydronephrosis in the visualized aspects of the right kidney. IMPRESSION: Obscured pancreas. Otherwise normal right upper quadrant ultrasound. This report has been created using voice recognition software. It may contain minor errors which are inherent in voice recognition technology. Final report electronically signed by Dr. Julio Kerr on 01/07/2021 4:58 PM [employer] Phone: [employer] FOR SURGICAL PROCEDUR ESon 12-08-2020 Radiology exam is complete. No Radiologist dictation. Please follow up with ordering provider. [employer] FOR SURGICAL PROCEDUR ESon 11-10-2020 Radiology exam is complete. No Radiologist dictation. Please follow up with ordering provider. [employer] AMI DIGITAL SCREEN SELF REFERRAL W OR WO CAD BILATERALon 10-08-2020 IMPRESSION: Mammogra m BI-RADS: Category 2: Benign There is no mammographic evidence of malignancy. A 1 year screening mammogram is recommended. The patient has been entered into our database and they will receive a notification when they are due for their next exam. The patient was notified of the results. #[id number] - [facility] AMI DIGITAL SCREEN SELF REFERRAL W OR WO CAD BILATERAL BILATERAL DIGITAL SCREENING MAMMOGRAM 3D/2D WITH CAD: 10/08/2020 CLINICAL: Tomosynthesis. Self referred screening mammogram. Comparison is made to exams dated: 12/07/2016 mammogram - [facility] and 12/02/2014 mammogram - [facility] Mammography At [facility]. There are scattered fibroglandular elements in both breasts that could obscure a lesion on mammography. Current study was also evaluated with a Computer Aided Detection (CAD) system. There is a benign nodule right breast. There also are benign densities and lymph nodes left breast. No significant masses, calcifications, or other findings are seen in either breast. There has been no significant interval change. Bacilio Andrews M.D. rd/penrad:10/08/2020 15:30:52 Manager Inspection: Hattie Villa RT(R)(M)(), [facility] Mammography At [facility] letter sent: Normal-All Doctor Names [id number] [place], [place] Brayan, [facility] Incoming Radiant Results From [employer] - 10/08/2020 4:21 PM EST IMPRESSION: Mammogram BI-RADS: Category 2: Benign There is no mammographic evidence of malignancy. A 1 year screening mammogram is recommended. The patient has been entered into our database and they will receive a notification when they are due for their next exam. The patient was notified of the results. #[id number] - [facility] AMI DIGITAL SCREEN SELF REFERRAL W OR WO CAD BILATERAL BILATERAL DIGITAL SCREENING MAMMOGRAM 3D/2D WITH CAD: 10/08/2020 CLINICAL: Tomosynthesis. Self referred screening mammogram. Comparison is made to exams dated: 12/07/2016 mammogram - [facility] and 12/02/2014 mammogram - [facility] Mammography At [facility]. There are scattered fibroglandular elements in both breasts that could obscure a lesion on mammography. Current study was also evaluated with a Computer Aided Detection (CAD) system. There is a benign nodule right breast. There also are benign densities and lymph nodes left breast. No significant masses, calcifications, or other findings are seen in either breast. There has been no significant interval change. Bacilio Andrews M.D. rd/penrad:10/08/2020 15:30:52 Manager Inspection: Hattie Villa RT(R)(M)(), [facility] Mammography At [facility] letter sent: Normal-All Doctor Names [id number] [place] [employer] FOR SURGICAL PROCEDUR ESon 10-05-2020 Radiology exam is complete. No Radiologist dictation. Please follow up with ordering provider. [place], [place] MRI LUMBAR SPINE WO CONTRAST on 09-09-2020 1. There is mild can al and mild to moderate bilateral foraminal stenosis at L4-5. 2. There is mild to moderate bilateral foraminal stenosis with no canal stenosis at L5-S1. 3. There is degenerative change involving the sacroiliac joints bilaterally. 4. Otherwise negative MRI scan of the lumbar spine. This report has been created using voice recognition software. It may contain minor errors which are inherent in voice recognition technology. Final report electronically signed by DR CHEL CAICEDO on 09/09/2020 4:38 PM [place], [place] PROCEDURE: MRI LUMBA R SPINE WO CONTRAST CLINICAL INFORMATION: Lumbosacral radiculitis. COMPARISON: No prior study. TECHNIQUE: Sagittal and axial T1 and T2-weighted images were obtained through the lumbar spine. FINDINGS: There is minimal anterolisthesis of L4 relative to L5. There is normal marrow signal throughout. There is no bone marrow edema. There are no compression fractures. No pars defects are noted. . The distal spinal cord, conus medullaris and cauda equina are normal. There are no gross abnormalities in the visualized aspects of the distal thoracic spine. On the axial images, at T12-L1, there is no disc herniation, canal or foraminal stenosis At L1-L2, there is no disc herniation, canal or foraminal stenosis At L2-L3, there is no disc herniation, canal or foramen stenosis At L3-L4, there is no disc herniation, canal or foramen stenosis At L4-L5, there is a 2.3 mm bulging disc and facet hypertrophy. This causes mild canal and mild to moderate bilateral foraminal stenosis At L5-S1, there is a 1.4 mm bulging disc and facet hypertrophy. This causes [id number] bilateral foraminal stenosis with no canal stenosis. There is degenerative change involving the sacroiliac joints bilaterally.. [place], [place] Brayan, [facility] [place] Incoming Radiant Results From [employer] - 09/09/2020 4:40 PM EST PROCEDURE: MRI LUMBAR SPINE WO CONTRAST CLINICAL INFORMATION: Lumbosacral radiculitis. COMPARISON: No prior study. TECHNIQUE: Sagittal and axial T1 and T2-weighted images were obtained through the lumbar spine. FINDINGS: There is minimal anterolisthesis of L4 relative to L5. There is normal marrow signal throughout. There is no bone marrow edema. There are no compression fractures. No pars defects are noted. . The distal spinal cord, conus medullaris and cauda equina are normal. There are no gross abnormalities in the visualized aspects of the distal thoracic spine. On the axial images, at T12-L1, there is no disc herniation, canal or foraminal stenosis At L1-L2, there is no disc herniation, canal or foraminal stenosis At L2-L3, there is no disc herniation, canal or foramen stenosis At L3-L4, there is no disc herniation, canal or foramen stenosis At L4-L5, there is a 2.3 mm bulging disc and facet hypertrophy. This causes mild canal and mild to moderate bilateral foraminal stenosis At L5-S1, there is a 1.4 mm bulging disc and facet hypertrophy. This causes [id number] bilateral foraminal stenosis with no canal stenosis. There is degenerative change involving the sacroiliac joints bilaterally.. IMPRESSION: 1. There is mild canal and mild to moderate bilateral foraminal stenosis at L4-5. 2. There is mild to moderate bilateral foraminal stenosis with no canal stenosis at L5-S1. 3. There is degenerative change involving the sacroiliac joints bilaterally. 4. Otherwise negative MRI scan of the lumbar spine. This report has been created using voice recognition software. It may contain minor errors which are inherent in voice recognition technology. Final report electronically signed by DR CHEL CAICEDO on 09/09/2020 4:38 PM [facility] FLU[employer]O FOR SURGICAL PROCEDUR ESon 09-08-2020 Radiology exam is complete. No Radiologist dictation. Please follow up with ordering provider. [facility] Otheron 08-11-2020 Radiology exam is complete. No Radiologist dictation. Please follow up with ordering provider. [facility] FLU[employer]O FOR SURGICAL PROCEDUR ESon 07-17-2020 Radiology exam is complete. No Radiologist dictation. Please follow up with ordering provider. [facility] [employer] For Surgical Procedur eson 12-24-2019 Radiology exam is complete. No Radiologist dictation. Please follow up with ordering provider. [employer] Work Phone: XR Hips Bilateralon 12-18-19 20 1. No acute fracture or malalignment. Degenerative changes of the bilateral right greater than left hip joints are demonstrated as detailed above. This report has been created using voice recognition software. It may contain minor errors which are inherent in voice recognition technology. Final report electronically signed by Dr. Isaiah Andrews on 12/18/2019 2:41 PM [employer] Phone: PROCEDURE: XR HIPS BILATERAL CLINICAL INFORMATION: Chronic pain syndrome COMPARISON: No prior study. TECHNIQUE: Left hip 2 views, right hip 2 views FINDINGS: 2 views of the right hip are obtained. There is joint space narrowing within the right hip joint space. The right femoral head contour appears intact. There is spurring along the inferior aspect of the acetabulum and along the inferomedial aspect of the right humeral head. No fractures seen. 2 views of the left hip were obtained. There is degenerative spurring along the medial inferior aspect of the proximal left humeral head. There is degenerative joint space narrowing within the left femoral acetabular joint space. No fractures seen. [employer] Phone: Brayan, [facility] [place] Incoming Radiant Results From [employer] - 12/18/2019 2:43 PM EST PROCEDURE: XR HIPS BILATERAL CLINICAL INFORMATION: Chronic pain syndrome COMPARISON: No prior study. TECHNIQUE: Left hip 2 views, right hip 2 views FINDINGS: 2 views of the right hip are obtained. There is joint space narrowing within the right hip joint space. The right femoral head contour appears intact. There is spurring along the inferior aspect of the acetabulum and along the inferomedial aspect of the right humeral head. No fractures seen. 2 views of the left hip were obtained. There is degenerative spurring along the medial inferior aspect of the proximal left humeral head. There is degenerative joint space narrowing within the left femoral acetabular joint space. No fractures seen. IMPRESSION: 1. No acute fracture or malalignment. Degenerative changes of the bilateral right greater than left hip joints are demonstrated as detailed above. This report has been created using voice recognition software. It may contain minor errors which are inherent in voice recognition technology. Final report electronically signed by Dr. Isaiah Andrews on 12/18/2019 2:41 PM [employer] Phone: [employer] For Surgical Procedur esOrdered By: Julian Spain on 11-26-2019 Radiology exam is complete. No Radiologist dictation. Please follow up with ordering provider. [employer] Phone: [employer] For Surgical Procedur eson 09-30-2019 Radiology exam is complete. No Radiologist dictation. Please follow up with ordering provider. [facility] Flu[facility] For Surgical Procedur eson 09-02-2019 Radiology exam is complete. No Radiologist dictation. Please follow up with ordering provider. [facility] [employer] For Surgical Procedur eson 06-24-2019 Radiology exam is complete. No Radiologist dictation. Please follow up with ordering provider. [employer] Vital Signs Date Time Vital Sign Value Performing Clinician Facility 11-09-2023 11:02-0500 Body height 157.5 cm Chance Patton MD Work Phone: [facility] 11-09-2023 11:02-0500 Body mass index (BMI) [Ratio] 40.24 kg/m2 Chance Patton MD Work Phone: [facility] 11-09-2023 11:02-0500 Body weight 99.79 kg Chance Patton MD Work Phone: [facility] 09-29-2023 14:57-0500 Body temperature 97.5 [degF] Chance Patton MD Work Phone: [facility] 09-29-2023 14:57-0500 Diastolic blood pressure 55 mm[Hg] Chance Patton MD Work Phone: [facility] 09-29-2023 14:57-0500 Heart rate 59 /min Chance Patton MD Work Phone: [facility] 09-29-2023 14:57-0500 SaO2% (BldA) [Mass fraction] 94 % Chance Patton MD Work Phone: [facility] 09-29-2023 14:57-0500 Systolic blood pressure 99 mm[Hg] Chance Patton MD Work Phone: [facility] 09-29-2023 09:15-0500 Respiratory rate 17 /min Chance Patton MD Work Phone: 3(398)950-632240 [place] [address] 09-27-2023 14:43-0500 Body height 157.5 cm Chance Patton MD Work Phone: 3(627)634-432071 [place] [address] 09-27-2023 14:43-0500 Body mass index (BMI) [Ratio] 40.76 kg/m2 Chance Patton MD Work Phone: 8(108)943-027549 [address] 09-27-2023 14:43-0500 Body weight 101.1 kg Chance Patton MD Work Phone: 3(654)990-002571 [place] [address] 09-26-2023 12:20-0500 Body temperature 96.8 [degF] Chance Patton MD Work Phone: 4(135)155-427749 [address] 09-26-2023 12:20-0500 Diastolic blood pressure 60 mm[Hg] Chance Patton MD Work Phone: 1(377)810-658249 [address] 09-26-2023 12:20-0500 Heart rate 62 /min Chance Patton MD Work Phone: 1(655)137-161071 [place] [address] 09-26-2023 12:20-0500 Respiratory rate 16 /min Chance Patton MD Work Phone: 7(390)261-939870 [place] [address] 09-26-2023 12:20-0500 SaO2% (BldA) [Mass fraction] 96 % Chance Patton MD Work Phone: 1(073)885-066071 [place] [address] 09-26-2023 12:20-0500 Systolic blood pressure 121 mm[Hg] Chance Patton MD Work Phone: 7(482)520-591671 [place] [address] 09-26-2023 09:12-0500 Body mass index (BMI) [Ratio] 40.69 kg/m2 Chance Patton MD Work Phone: 1(729)687-226871 [place] [address] 09-26-2023 09:12-0500 Body weight 100.9 kg Chance Patton MD Work Phone: 4(823)405-563749 [address] 09-25-2023 09:43-0500 Body height 157.5 cm Chance Patton MD Work Phone: [facility] 09-25-2023 09:43-0500 Body mass index (BMI) [Ratio] 41.34 kg/m2 Chance Patton MD Work Phone: [facility] 09-25-2023 09:43-0500 Body weight 102.51 kg Chance Patton MD Work Phone: [facility] 09-25-2023 09:43-0500 Diastolic blood pressure 80 mm[Hg] Chance Patton MD Work Phone: [facility] 09-25-2023 09:43-0500 Systolic blood pressure 124 mm[Hg] Chance Patton MD Work Phone: [facility] 08-16-2022 10:43-0400 Body temperature 97.3 [degF] Siva Duval MD Work Phone: [facility] 08-16-2022 10:43-0400 Diastolic blood pressure 51 mm[Hg] Siva Duval MD Work Phone: [facility] 08-16-2022 10:43-0400 Heart rate 55 /min Siva Duval MD Work Phone: [facility] 08-16-2022 10:43-0400 Respiratory rate 16 /min Siva Duval MD Work Phone: [facility] 08-16-2022 10:43-0400 SaO2% (BldA) [Mass fraction] 95 % Siva Duval MD Work Phone: [facility] 08-16-2022 10:43-0400 Systolic blood pressure 89 mm[Hg] Siva Duval MD Work Phone: [facility] 08-16-2022 09:38-0400 Body height 157.5 cm Siva Duval MD Work Phone: [facility] 08-16-2022 09:38-0400 Body mass index (BMI) [Ratio] 40.9 kg/m2 Siva Duval MD Work Phone: [facility] [employer] 08-16-2022 09:38-0400 Body weight 101.42 kg Siva Duval MD Work Phone: [facility] [employer] 07-03-2022 09:04-0400 Heart rate 72 /min Steph Hung MD Work Phone: [facility] [employer] 07-03-2022 09:04-0400 Respiratory rate 21 /min Steph Hung MD Work Phone: [facility] [employer] 07-03-2022 09:04-0400 SaO2% (BldA) [Mass fraction] 95 % Steph Hung MD Work Phone: [facility] [employer] 07-03-2022 08:12-0400 Diastolic blood pressure 76 mm[Hg] Steph Hung MD Work Phone: [facility] [employer] 07-03-2022 08:12-0400 Systolic blood pressure 145 mm[Hg] Steph Hung MD Work Phone: [facility] [employer] 07-03-2022 05:17-0400 Body height 157.5 cm Steph Hung MD Work Phone: [facility] [employer] 07-03-2022 05:17-0400 Body mass index (BMI) [Ratio] 40.24 kg/m2 Steph Hung MD Work Phone: [facility] [employer] 07-03-2022 05:17-0400 Body temperature 97.7 [degF] Steph Hung MD Work Phone: [facility] [employer] 07-03-2022 05:17-0400 Body weight 99.79 kg Steph Hung MD Work Phone: [facility] [employer] 05-30-2022 12:51-0400 Body temperature 97.39 [degF] Siva Duval MD Work Phone: [facility] 05-30-2022 12:51-0400 Diastolic blood pressure 59 mm[Hg] Siva Duval MD Work Phone: [facility] [employer] 05-30-2022 12:51-0400 Heart rate 57 /min Siva Duval MD Work Phone: [facility] [employer] 05-30-2022 12:51-0400 Respiratory rate 16 /min Siva Duval MD Work Phone: [facility] [employer] 05-30-2022 12:51-0400 SaO2% (BldA) [Mass fraction] 93 % Siva Duval MD Work Phone: [facility] [employer] 05-30-2022 12:51-0400 Systolic blood pressure 114 mm[Hg] Siva Duval MD Work Phone: [facility] [employer] 05-30-2022 11:00-0400 Body height 157.5 cm Siva Duval MD Work Phone: [facility] [employer] 05-30-2022 11:00-0400 Body mass index (BMI) [Ratio] 40.06 kg/m2 Siva Duval MD Work Phone: [facility] [employer] 05-30-2022 11:00-0400 Body weight 99.34 kg Siva Duval MD Work Phone: [facility] [employer] 04-14-2022 12:13-0400 Diastolic blood pressure 63 mm[Hg] Siva Duval MD Work Phone: [facility] [employer] 04-14-2022 12:13-0400 Systolic blood pressure 113 mm[Hg] Siva Duval MD Work Phone: [facility] [employer] 04-14-2022 11:59-0400 Heart rate 50 /min Siva Duval MD Work Phone: [facility] [employer] 04-14-2022 11:59-0400 SaO2% (BldA) [Mass fraction] 96 % Siva Duval MD [facility] Phone: [facility] 04-14-2022 11:32-0400 Body temperature 97.81 [degF] Siva Duval MD Work Phone: [facility] 04-14-2022 11:32-0400 Respiratory rate 16 /min Siva Duval MD Work Phone: [facility] 04-14-2022 10:52-0400 Body height 154.9 cm Siva Duval MD Work Phone: [facility] 04-14-2022 10:52-0400 Body mass index (BMI) [Ratio] 40.62 kg/m2 Siva Duval MD Work Phone: [facility] 04-14-2022 10:52-0400 Body weight 97.52 kg Siva Duval MD Work Phone: [facility] 12-20-2021 08:22-0500 Body temperature 97.3 [degF] Siva Duval MD Work Phone: [facility] 12-20-2021 08:22-0500 Diastolic blood pressure 52 mm[Hg] Siva Duval MD Work Phone: [facility] 12-20-2021 08:22-0500 Heart rate 48 /min Siva Duval MD Work Phone: [employer] 12-20-2021 08:22-0500 Respiratory rate 12 /min Siva Duval MD Work Phone: [employer] 12-20-2021 08:22-0500 SaO2% (BldA) [Mass fraction] 93 % Siva Duval MD Work Phone: [employer] 12-20-2021 08:22-0500 Systolic blood pressure 86 mm[Hg] iSva Duval MD Work Phone: [employer] 12-20-2021 06:56-0500 Body height 157.5 cm Siva Duval MD Work Phone: [employer] 12-20-2021 06:56-0500 Body mass index (BMI) [Ratio] 40.06 kg/m2 Siva Duval MD Work Phone: [employer] 12-20-2021 06:56-0500 Body weight 99.34 kg Siva Duval MD Work Phone: [employer] 10-11-2021 13:38-0500 Body temperature 97.39 [degF] Siva Duval MD Work Phone: [employer] 10-11-2021 13:38-0500 Diastolic blood pressure 60 mm[Hg] Siva Duval MD Work Phone: [employer] 10-11-2021 13:38-0500 Heart rate 54 /min Siva Duval MD Work Phone: [employer] 10-11-2021 13:38-0500 Respiratory rate 16 /min Siva Duval MD Work Phone: [employer] 10-11-2021 13:38-0500 SaO2% (BldA) [Mass fraction] 95 % Siva Duval MD Work Phone: [facility] 10-11-2021 13:38-0500 Systolic blood pressure 127 mm[Hg] Siva Duval MD Work Phone: [employer] 10-11-2021 12:28-0500 Body height 157.5 cm Siva Duval MD Work Phone: [employer] 10-11-2021 12:28-0500 Body mass index (BMI) [Ratio] 40.79 kg/m2 Siva Duval MD Work Phone: [employer] 10-11-2021 12:28-0500 Body weight 101.15 kg Siva Duval MD Work Phone: [employer] 06-07-2021 14:21-0400 Body temperature 96.91 [degF] Siva Duval MD Work Phone: [employer] Work Phone: 06-07-2021 14:21-0400 Diastolic blood pressure 57 mm[Hg] Siva Duval MD Work Phone: [employer] Work Phone: 06-07-2021 14:21-0400 Heart rate 66 /min Siva Duval MD Work Phone: [employer] Work Phone: 06-07-2021 14:21-0400 Respiratory rate 12 /min Siva Duval MD Work Phone: [employer] Work Phone: 06-07-2021 14:21-0400 SaO2% (BldA) [Mass fraction] 94 % Siva Duval MD Work Phone: [employer] Work Phone: 06-07-2021 14:21-0400 Systolic blood pressure 98 mm[Hg] Siva Duval MD Work Phone: [employer] Work Phone: 06-07-2021 13:07-0400 Body height 157.5 cm Siva Duval MD Work Phone: [employer] Work Phone: 06-07-2021 13:07-0400 Body mass index (BMI) [Ratio] 39.69 kg/m2 Siva Duval MD Work Phone: [employer] Work Phone: 06-07-2021 13:07-0400 Body weight 98.43 kg Siva Duval MD Work Phone: [employer] Work Phone: 12-08-2020 09:05-0500 Body Temperature 97.7 [degF] [facility] 12-08-2020 09:05-0500 BP Diastolic 63 mm[Hg] [facility] 12-08-2020 09:05-0500 BP Systolic 119 mm[Hg] [facility] 12-08-2020 09:05-0500 Pulse (Heart Rate) 65 /min [facility] 12-08-2020 09:05-0500 Pulse Oximetry 95 % [facility] 12-08-2020 09:05-0500 Respiratory Rate 16 /min [facility] 12-08-2020 08:01-0500 BMI (Body Mass Index) 40.6 kg/m2 [facility] 12-08-2020 08:01-0500 Body weight 100.7 kg [facility] 12-08-2020 08:01-0500 Height 157.5 cm [facility] 11-10-2020 09:02-0500 Pulse Oximetry 93 % [facility] 11-10-2020 08:58-0500 Body Temperature 97.11 [degF] [facility] 11-10-2020 08:58-0500 BP Diastolic 56 mm[Hg] [facility] 11-10-2020 08:58-0500 BP Systolic 102 mm[Hg] [facility] 11-10-2020 08:58-0500 Pulse (Heart Rate) 61 /min [facility] 11-10-2020 08:58-0500 Respiratory Rate 16 /min [facility] 11-10-2020 08:10-0500 BMI (Body Mass Index) 40.24 kg/m2 [facility] 11-10-2020 08:10-0500 Body weight 99.79 kg Siva TolbertMcintosh [facility] 11-10-2020 08:10-0500 Height 157.5 [facility] 10-05-2020 09:01-0500 Body Temperature 95.9 [degF] Siva TolbertMcintosh [facility], [place] 10-05-2020 09:01-0500 BP Diastolic 58 mm[Hg] [facility], [place] 10-05-2020 09:01-0500 BP Systolic 107 mm[Hg] [facility] 10-05-2020 09:01-0500 Pulse (Heart Rate) 59 /min [facility], [place] 10-05-2020 09:01-0500 Pulse Oximetry 92 % [facility]iva [facility], [place] 10-05-2020 09:01-0500 Respiratory Rate 16 /min [facility], [place] 10-05-2020 07:57-0500 BMI (Body Mass Index) 39.51 kg/m2 [facility] 10-05-2020 07:57-0500 Body weight 97.98 kg Siva [facility], [place] 10-05-2020 07:57-0500 Height 157.5 cm [facility] [place] 09-08-2020 14:31-0500 Body Temperature 96.91 [degF] [facility] [place] 09-08-2020 14:31-0500 BP Diastolic 60 mm[Hg] [facility]iva [facility], [place] 09-08-2020 14:31-0500 BP Systolic 114 mm[Hg] [facility], [place] 09-08-2020 14:31-0500 Pulse (Heart Rate) 67 /min Siva TolbertMcintosh [facility], [place] 09-08-2020 14:31-0500 Pulse Oximetry 94 % Siva [facility], [place] 09-08-2020 14:31-0500 Respiratory Rate 16 /min [facility], [place] 09-08-2020 13:41-0500 BMI (Body Mass Index) 39.69 kg/m2 Siva TolbertMcintosh [facility], [place] 09-08-2020 13:41-0500 Body weight 98.43 kg Siva TolbertMcintosh [facility] 09-08-2020 13:41-0500 Height 157.5 cm Siva [facility], [place] 08-11-2020 10:09-0400 Pulse Oximetry 94 % [facility] 08-11-2020 10:03-0400 Body Temperature 97.11 [degF] [facility], [place] 08-11-2020 10:03-0400 BP Diastolic 59 mm[Hg] [facility]iva [facility], [place] 08-11-2020 10:03-0400 BP Systolic 103 mm[Hg] [facility], [place] 08-11-2020 10:03-0400 Pulse (Heart Rate) 62 /min [facility], [place] 08-11-2020 10:03-0400 Respiratory Rate 16 /min [facility], [place] 08-11-2020 08:48-0400 BMI (Body Mass Index) 39.14 kg/m2 [facility] [place] 08-11-2020 08:48-0400 Body weight 97.07 kg [facility] [place] 08-11-2020 08:48-0400 Height 157.5 cm [facility] [place] 07-17-2020 10:50-0400 BP Diastolic 53 mm[Hg] [facility], [place] 07-17-2020 10:50-0400 BP Systolic 108 mm[Hg] [facility], [place] 07-17-2020 10:50-0400 Pulse Oximetry 95 % [facility], [place] 07-17-2020 10:43-0400 Body Temperature 97.5 [degF] [facility], [place] 07-17-2020 10:43-0400 Pulse (Heart Rate) 59 /min Siva Duval [facility], [place] 07-17-2020 10:43-0400 Respiratory Rate 16 /min Siva Duval [facility] 07-17-2020 09:08-0400 BMI (Body Mass Index) 38.23 kg/m2 Siva Duval [facility] 07-17-2020 09:08-0400 Body weight 94.8 kg Siva Duval [facility], [place] 07-17-2020 09:08-0400 Height 157.5 cm Siva [facility], [place] 12-24-2019 09:38-0500 Body Temperature 97.3 [degF] [facility]iva [employer] Work Phone: 12-24-2019 09:38-0500 BP Diastolic 75 mm[Hg] Siva [employer] Work Phone: 12-24-2019 09:38-0500 BP Systolic 101 mm[Hg] [facility]iva [employer] Work Phone: 12-24-2019 09:38-0500 Pulse (Heart Rate) 69 /min Siva [facility] Phone: 12-24-2019 09:38-0500 Pulse Oximetry 93 % Siva [employer] Phone: 12-24-2019 09:38-0500 Respiratory Rate 16 /min [facility]iva [employer] Work Phone: 12-24-2019 07:42-0500 BMI (Body Mass Index) 40.6 kg/m2 Siva [facility] Phone: 12-24-2019 07:42-0500 Body weight 100.7 kg Siva [facility] Phone: 12-24-2019 07:42-0500 Height 157.5 cm Siva [facility] Phone: 11-26-2019 14:35-0500 Diastolic blood pressure 55 mm[Hg] Siva Duval MD Work Phone: [employer] Work Phone: 11-26-2019 14:35-0500 Respiratory rate 16 /min Siva Duval MD Work Phone: [facility] Work Phone: 11-26-2019 14:35-0500 Systolic blood pressure 112 mm[Hg] Siva Duval MD Work Phone: [facility] Work Phone: 11-26-2019 14:06-0500 Body temperature 97.59 [degF] Siva Duval MD Work Phone: [facility] Work Phone: 11-26-2019 14:06-0500 Heart rate 63 /min Siva Duval MD Work Phone: [employer] Work Phone: 11-26-2019 14:06-0500 SaO2% (BldA) [Mass fraction] 93 % Siva Duval MD Work Phone: [facility] Work Phone: 11-26-2019 13:11-0500 Body height 157.5 cm Siva Duval MD Work Phone: [facility] Work Phone: 11-26-2019 13:11-0500 Body mass index (BMI) [Ratio] 40.57 kg/m2 Siva Duval MD Work Phone: [facility] Work Phone: 11-26-2019 13:11-0500 Body weight 100.61 kg Siva Duval MD Work Phone: [facility] Work Phone: 09-30-2019 09:29-0500 Body Temperature 97.9 [degF] Siva Duval [facility], [place] 09-30-2019 09:29-0500 BP Diastolic 59 mm[Hg] [facility] [place] 09-30-2019 09:29-0500 BP Systolic 125 mm[Hg] Siva TolbertMcintosh [facility], [place] 09-30-2019 09:29-0500 Pulse (Heart Rate) 69 /min [facility] [place] 09-30-2019 09:29-0500 Pulse Oximetry 97 % [facility] [place] 09-30-2019 09:29-0500 Respiratory Rate 16 /min [facility], [place] 09-30-2019 07:24-0500 BMI (Body Mass Index) 40.82 kg/m2 [facility] [place] 09-30-2019 07:24-0500 Body weight 101.24 kg [facility] [place] 09-30-2019 07:24-0500 Height 157.5 cm [facility] [place] 09-02-2019 07:47-0400 Body Temperature 96.91 [degF] [facility], [place] 09-02-2019 07:47-0400 BP Diastolic 66 mm[Hg] [facility] [place] 09-02-2019 07:47-0400 BP Systolic 136 mm[Hg] [facility] [place] 09-02-2019 07:47-0400 Pulse (Heart Rate) 59 /min [facility] [place] 09-02-2019 07:47-0400 Pulse Oximetry 97 % [facility] [place] 09-02-2019 07:47-0400 Respiratory Rate 14 /min [facility] [place] 09-02-2019 06:29-0400 BMI (Body Mass Index) 40.9 kg/m2 [facility] [place] 09-02-2019 06:29-0400 Body weight 101.42 kg [facility] [place] 09-02-2019 06:29-0400 Height 157.5 cm Siva BorgesDayna [facility], [place] 06-24-2019 13:37-0400 Body Temperature 97 [degF] Siva Duval [facility], [place] 06-24-2019 13:37-0400 BP Diastolic 54 mm[Hg] Siva PattersonDayna [facility], [place] 06-24-2019 13:37-0400 BP Systolic 98 mm[Hg] Siva PattersonMcintosh [facility], [place] 06-24-2019 13:37-0400 Pulse (Heart Rate) 73 /min Siva PattersonMcintosh [facility], [place] 06-24-2019 13:37-0400 Pulse Oximetry 98 % [facility] [place] 06-24-2019 13:37-0400 Respiratory Rate 16 /min Siva PattersonDayna [facility], [place] 06-24-2019 12:30-0400 BMI (Body Mass Index) 40.64 kg/m2 Siva TolbertMcintosh [facility], [place] 06-24-2019 12:30-0400 Body weight 100.79 kg Siva PattersonMcintosh [facility], [place] 06-24-2019 12:30-0400 Height 157.5 cm Siva [place] Encounters Encounter Date Encounter Type Care Provider Facility Start: 01-19-2024 End: 01-20-2024 ambulatory JULIAN Olvera [facility] Start: 01-19-2024 End: 01-19-2024 Subsequent hospital visit by physician Juanjo Trujillo PT Comment on above: Arrived Start: 01-17-2024 Patient encounter procedure [facility] Start: 01-17-2024 End: 01-18-2024 ambulatory TRICIA PÉREZ [facility] Start: 01-16-2024 End: 01-17-2024 ambulatory JULIAN Olvera [facility] Start: 01-12-2024 End: 01-13-2024 ambulatory JULIAN Olvera [facility] Start: 01-09-2024 End: 01-10-2024 ambulatory JULIAN Olvera [facility] Start: 01-05-2024 End: 01-06-2024 [facility] Start: 12-27-2023 End: 12-27-2023 ambulatory [facility] Start: 11-10-2023 ambulatory [facility] Start: 11-09-2023 End: 11-09-2023 ambulatory [facility] Start: 11-09-2023 End: 11-09-2023 Postop follow up visit related to original px Chance Patton MD Work Phone: [facility] Comment on above: History of repair of hiatal hernia (Primary Dx) Start: 11-08-2023 End: 11-09-2023 ambulatory [facility] Start: 10-12-2023 End: 10-12-2023 ambulatory [facility] Start: 10-12-2023 End: 10-12-2023 Postop follow up visit related to original px Chance Patton MD Work Phone: [facility] Comment on above: History of repair of hiatal hernia (Primary Dx) Start: 10-03-2023 ambulatory [facility] Start: 09-27-2023 End: 09-29-2023 Evaluation and management of inpatient Chance Patton MD Work Phone: [facility] 11 Comment on above: Paraesophageal hiata l hernia (Primary Dx) Start: 09-26-2023 End: 09-26-2023 Subsequent hospital visit by physician Chance Patton MD Work Phone: [facility] Comment on above: Paraesophageal hiata l hernia (Primary Dx) Start: 09-25-2023 End: 09-25-2023 Subsequent hospital visit by physician Lauren Rodriguez 1 [facility] Comment on above: Paraesophageal hiata l hernia Start: 09-25-2023 End: 09-25-2023 ambulatory [facility] Start: 09-25-2023 End: 09-25-2023 Office outpatient new 60 minutes Chance Patton MD Work Phone: [facility] Comment on above: Paraesophageal hiata l hernia (Primary Dx) Start: 08-15-2023 End: 08-15-[address] [facility] Start: 07-25-[address] [facility] Start: 07-24-2023 End: 07-25-2023 ambulatory LAMONT STEWART [facility] Start: 07-19-2023 End: 07-19-2023 ambulatory MD Steph Hung Work Phone: [facility] Work Phone: Start: 07-19-2023 End: 07-19-2023 Patient encounter procedure MD Steph Hung Work Phone: [facility] Start: 07-11-2023 End: 07-12-2023 ambulatory MORENO MCCORD [facility] Start: 07-03-2023 End: 07-03-2023 ambulatory [facility] Start: 06-26-2023 End: 06-26-2023 ambulatory [facility] Start: 05-18-2023 ambulatory LOOKOUT Amanda [facility] Start: 05-09-2023 End: 05-09-2023 Emergency department patient visit LOOKOUT Amanda [facility] Start: 03-03-2023 End: 03-04-2023 Emergency department patient visit STEPH HUNG Facility:[facility] Start: 03-03-2023 End: 03-03-2023 ambulatory MD Steph Hung Work Phone: [facility] Work Phone: Start: 03-03-2023 End: 03-03-2023 Patient encounter procedure MD Steph Hung Work Phone: [facility] Start: 09-06-2022 End: 09-06-2022 Subsequent hospital visit by physician Melody Avalos [facility] Comment on above: Acute pain of right shoulder Start: 08-16-2022 End: 08-16-2022 Subsequent hospital visit by physician Siva Duval MD Work Phone: [facility] Start: 08-03-2022 End: 08-03-2022 ambulatory Physician None Work Phone: [facility] Work Phone: Start: 08-03-2022 End: 08-03-2022 Patient encounter procedure Physician None Work Phone: [facility] Start: 07-03-2022 End: 07-03-2022 Emergency department patient visit Steph Hung MD Work Phone: [facility] Comment on above: Dizziness (Primary D x) Start: 05-30-2022 End: 05-30-2022 Subsequent hospital visit by physician Siva Duval MD Work Phone: [facility] Start: 04-14-2022 End: 04-14-2022 Subsequent hospital visit by physician Siva Duval MD Work Phone: [facility] Start: 12-20-2021 End: 12-20-2021 Subsequent hospital visit by physician Siva Duval MD Work Phone: [facility] [place] Start: 10-11-2021 End: 10-11-2021 Subsequent hospital visit by physician Siva Duval MD Work Phone: [facility] [place] Start: 06-07-2021 End: 06-07-2021 Subsequent hospital visit by physician Siva Duval MD Work Phone: [facility] [place] Start: 01-07-2021 End: 01-07-2021 Subsequent hospital visit by physician [facility] Comment on above: Abdominal pain, epig astric; Constipation, unspecified constipation type Start: 12-08-2020 End: 12-08-2020 Subsequent hospital visit by physician Siva Duval Work Phone: [facility] Start: 11-10-2020 End: 11-10-2020 Subsequent hospital visit by physician Siva Duval Work Phone: [facility] Start: 10-08-2020 End: 10-08-2020 Subsequent hospital visit by physician Melody Trujillo Mammography [facility] Mammography Comment on above: Encounter for screen ing mammogram for malignant neoplasm of breast Start: 10-05-2020 End: 10-05-2020 Subsequent hospital visit by physician Siva Duval Work Phone: [facility] Start: 09-09-2020 End: 09-09-2020 Subsequent hospital visit by physician Melody Mri Rm1 [facility] MRI Comment on above: Lumbosacral radiculi tis Start: 09-08-2020 End: 09-08-2020 Subsequent hospital visit by physician Siva Duval Work Phone: [facility] Start: 08-11-2020 End: 08-11-2020 Subsequent hospital visit by physician Siva Duval Work Phone: [facility] Start: 07-17-2020 End: 07-17-2020 Subsequent hospital visit by physician Siva Duval Work Phone: [facility] Start: 12-24-2019 End: 12-24-2019 Subsequent hospital visit by physician Siva Duval Work Phone: [facility] Start: 12-18-2019 End: 12-18-2019 Subsequent hospital visit by physician [facility] Comment on above: Chronic pain syndrom e Start: 11-26-2019 End: 11-26-2019 Subsequent hospital visit by physician Siva Duval MD Work Phone: [facility] Start: 09-30-2019 End: 09-30-2019 Subsequent hospital visit by physician Siva Duval Work Phone: [facility] Start: 09-02-2019 End: 09-02-2019 Subsequent hospital visit by physician Siva Duval Work Phone: [facility] Start: 06-24-2019 End: 06-24-2019 Subsequent hospital visit by physician Siva Duval Work Phone: [facility] Procedures Date Procedure Procedure Detail Performing Clinician Start: 09-28-2023 Comprehensive metabolic panel Linnea Huang SENIOR TECHNICAL RECRUITER-BURNER OPERATOR Work Phone: Start: 09-27-2023 End: 09-27-2023 Laps rpr paraesphgl hrna incl fundplsty w/o mesh Chance Patton MD Work Phone: Start: 09-26-2023 Esophagogastroduodenoscopy transoral diagnostic Chance Patton MD Work Phone: Start: 09-25-2023 Radiologic exam esophagus single contrast study Chance Patton MD Work Phone: Start: 09-25-2023 CASE REQUEST OPERATING ROOM CHANCE rBito Start: 09-06-2022 Radex shoulder complete minimum 2 views Julian Spain SENIOR TECHNICAL RECRUITER - BURNER OPERATOR Work Phone: Start: 08-16-2022 Fluoroscopy during operation Julian villanueva SENIOR TECHNICAL RECRUITER - BURNER OPERATOR Work Phone: Start: 07-03-2022 Mri brain brain stem w/o contrast material Turner GERMAIN Work Phone: Start: 07-03-2022 Ct angiography head w/contrast/noncontrast Turner GERMAIN Work Phone: Start: 07-03-2022 Ct angiography neck w/contrast/noncontrast Turner GERMAIN Work Phone: Start: 07-03-2022 COVID-19, RAPID Turner GERMAIN Work Phone: Start: 07-03-2022 Ecg routine ecg w/least 12 lds w/i&r Viri Mason MD Work Phone: Start: 07-03-2022 Anion gap [Moles/Vol] Viri Mason MD Work Phone: Start: 07-03-2022 Assay of osmolality blood Viri Guerra Work Phone: Start: 07-03-2022 GLOMERULAR FILTRATION RATE, ESTIMATED Viri Mason MD Work Phone: Start: 07-03-2022 URINE WITH REFLEXED MICRO Viri Guerra Work Phone: Start: 05-30-2022 Fluoroscopy during operation Julian villanueva SENIOR TECHNICAL RECRUITER - BURNER OPERATOR Work Phone: Start: 04-14-2022 Fluoroscopy during operation Siva Damon MD Work Phone: Start: 12-20-2021 Fluoroscopy during operation Julian villanueva SENIOR TECHNICAL RECRUITER - BURNER OPERATOR Work Phone: Start: 10-11-2021 Fluoroscopy during operation Siva Damon MD Work Phone: Start: 06-07-2021 Fluoroscopy during operation Julian villanueva SENIOR TECHNICAL RECRUITER - BURNER OPERATOR Work Phone: Start: 01-07-2021 Us abdominal real time w/image limited Dieudonne Lam Work Phone: Start: 12-08-2020 Fluoroscopy during operation Julian villanueva Work Phone: Start: 11-10-2020 Fluoroscopy during operation Julian villanueva Work Phone: Start: 10-08-2020 Screening mammography bi 2-view breast inc cad Mammography Self Referral Start: 10-05-2020 Fluoroscopy during operation Julian villanueva Work Phone: Start: 09-09-2020 RADIOLOGY REPORT Hpf Scanning Start: 09-09-2020 Mri spinal canal lumbar w/o contrast material Julian Spain Work Phone: Start: 09-08-2020 Fluoroscopy during operation Julian villanueva Work Phone: Start: 08-11-2020 Fluoroscopy during operation Julian villanueva Work Phone: Start: 07-17-2020 Fluoroscopy during operation Julian villanueva Work Phone: Start: 12-24-2019 FLUORO FOR SURGICAL PROCEDURES Julian Spain Work Phone: Start: 12-18-2019 Radex hips bilateral with pelvis 2 views Julian Spain Work Phone: Start: 11-26-2019 FLUORO FOR SURGICAL PROCEDURES Julian Spain SENIOR TECHNICAL RECRUITER - BURNER OPERATOR Work Phone: Start: 09-30-2019 FLUORO FOR SURGICAL PROCEDURES Julian Spain Work Phone: Start: 09-02-2019 FLUORO FOR SURGICAL PROCEDURES Julian Spain Work Phone: Start: 06-24-2019 FLUORO FOR SURGICAL PROCEDURES Julian Spain Work Phone: Plan of Treatment Date Care Activity Detail Author Start: 05-10-2029 DTaP/Tdap/Td vaccine (2 - Td or Tdap) DTaP/Tdap/Td vaccine (2 - Td or Tdap) [facility] Start: 05-10-2029 DTaP/Tdap/Td vaccine (2 - Td) DTaP/Tdap/Td vaccine (2 - Td) [place], [place] Start: 05-10-2029 DTaP/Tdap/Td Vaccines (2 - Td or Tdap) DTaP/Tdap/Td Vaccines (2 - Td or Tdap) [facility] Start: 04-13-2027 Lipid panel Lipids [facility] Start: 05-18-2024 Lipid panel Lipids [facility] Start: 04-30-2024 End: 04-30-2024 Patient encounter procedure 04/30/2024 9:40 AM EDT [facility] [address] [place] [address] Kimberly Woods, SENIOR TECHNICAL RECRUITER - BURNER OPERATOR [address] [place] [address] Sleep Split Night F/U 02/08/24 [facility] Comment on above: Sleep Split Night F/U 02/08/24 Start: 02-08-2024 End: 02-08-2024 Patient encounter procedure 02/08/2024 8:15 PM EDT Appointment [facility] [address] [place] [address] [id number]-HCRAK/ Chanamolu [facility] Comment on above: [id number]-[id number]/ Chanamolu Start: 02-02-2024 End: 02-02-2024 Patient encounter procedure 02/02/2024 8:00 AM EDT Appointment SUKHJINDER Trujillo PT [address] [facility] [place] [address] Delores Woodward, PT G89.4 Chronic pain syndrome STRSurinder Trujillo PT Comment on above: G89.4 Chronic pain syndrome Start: 01-30-2024 End: 01-30-2024 Patient encounter procedure 01/30/2024 8:00 AM EDT Appointment SUKHJINDER Trujillo PT [address] [facility] [place] [id number] Juan Miller, FORESTRY PATROLMAN G89.4 Chronic pain syndrome STRZ Ronnie PT Comment on above: G89.4 Chronic pain syndrome Start: 01-26-2024 End: 01-26-2024 Patient encounter procedure 01/26/2024 8:00 AM EDT Appointment SUKHJINDER Trujillo PT [address] [facility] [place] [id number] Juan Miller, FORESTRY PATROLMAN G89.4 Chronic pain syndrome STRZ Ronnie PT Comment on above: G89.4 Chronic pain syndrome Start: 01-25-2024 End: 01-25-2024 Patient encounter procedure 01/25/2024 9:00 AM EDT Off ice Visit [facility] [address] [place] [address] Julian Spain, SENIOR TECHNICAL RECRUITER - BURNER OPERATOR [address] [place] [address] 1 mo fu [facility] Comment on above: 1 mo fu Start: 12-07-2023 End: 12-07-2023 Patient encounter procedure 12/07/2023 11:00 AM EST Office Visit [facility] [address] [place] [phone] Chance Patton MD [address] [facility] [facility] Medical Office [facility], [address] [place] [address] [facility] Start: 11-09-2023 End: 11-09-2023 Patient encounter procedure 11/09/2023 11:00 AM EST Office Visit [facility] [address] [place] [phone] Chance Patton MD [address] [facility] Medical Office [facility], [facility] [address] [place] [address] [facility] Start: 11-06-2023 Annual Wellness Visit (Medicare Advantage) Annual Wellness Visit (Medicare Advantage) [facility] Start: 10-11-2023 Screening for malignant neoplasm of breast Breast cancer screen [facility] Start: 09-27-2023 End: 09-27-2023 Admission to same day surgery center 09/27/2023 7:30 AM EST - 09/27/2023 9:00 AM EST Surgery [facility] [place] [address] [place] [address] Chance Patton MD [address] [facility] [address], [address] [place] [address] Repair Diaphragmatic Hernia Laparoscopy [07774 (CPT )] [facility] OR Comment on above: Repair Diaphragmatic Hernia Laparoscopy [46459 (CPT )] Start: 09-27-2023 End: 09-27-2023 Laps rpr paraesphgl hrna incl fundplsty w/o mesh Repair Diaphragmatic Hernia Laparoscopy Paraesophageal hiatal hernia 09/27/2023 7:30 AM EST Virtual [facility] Start: 09-27-2023 Subsequent hospital visit by physician [facility] Start: 09-26-2023 Subsequent hospital visit by physician 09/26/2023 Hospital Encounter [facility] [address] [place] [address] Chance Patton MD [address] [facility] [address], [address] [place] [address] [facility] Start: 09-26-2023 End: 09-26-2023 Patient encounter procedure [facility] Start: 09-25-2023 End: 09-25-2024 Basic metabolic 2000 panel - Serum or Plasma Basic Metabolic Panel Lab Routine Paraesophageal hiatal hernia Expected: 09/25/2023 (Approximate), Expires: 09/25/2024 [facility] Work Phone: Comment on above: Expected: 09/25/2023 (Approximate), Expi res: 09/25/2024 Start: 09-25-2023 End: 09-25-2024 CBC panel - Blood by Automated count CBC Lab Routine Paraesophageal hiatal hernia Expected: 09/25/2023, Expires: 09/25/2024 [facility] Work Phone: Comment on above: Expected: 09/25/2023, Expires: Start: 09-25-2023 End: 09-25-2024 ECG 12 lead ECG 12 lead ECG Routine Paraesophageal hiatal hernia Expected: 09/25/2023 (Approximate), Expires: 09/25/2024 [facility] Work Phone: Comment on above: Expected: 09/25/2023 (Approximate), Expi res: 09/25/2024 Start: 09-25-2023 End: 09-25-2023 Patient encounter procedure 09/25/2023 2:00 PM EST Appointment [facility] [address] [place] [phone] [facility] Start: 09-25-2023 End: 09-25-2024 RF Esophagus Views W barium contrast PO FL GI esophagram Imaging STAT Paraesophageal hiatal hernia Expected: 09/25/2023, Expires: 09/25/2024 [facility] Service Area Work Phone: Comment on above: Expected: 09/25/2023, Expires: Start: 07-11-2023 End: 07-11-2023 Patient encounter procedure 07/11/2023 Office Visit Neurology [facility] Start: 07-07-2023 Influenza vaccination Influenza Vaccine (#1) [facility] Start: 07-03-2023 End: 07-03-2023 Patient encounter procedure 07/03/2023 Appointment Radiology [facility] CT Scan Start: 06-06-2023 Influenza vaccination Flu vaccine (#1) [facility] Start: 04-13-2023 Lipid panel Lipids [facility] Start: 10-08-2022 Screening for malignant neoplasm of breast Breast cancer screen [facility] [place] Start: 09-20-2022 End: 09-20-2022 Patient encounter procedure 09/20/2022 Office Visit Physical Medicine and Rehab Julian Spain, SENIOR TECHNICAL RECRUITER - BURNER OPERATOR [address] [address] [facility] Start: 09-06-2022 End: 09-06-2022 Patient encounter procedure 09/06/2022 Office Visit [facility] Medicine [facility] Rehab Julian Spain, SENIOR TECHNICAL RECRUITER - BURNER OPERATOR [address] [place] [address] [facility] Start: 08-16-2022 End: 08-16-2022 Dstr nrolytc agnt parverteb fct sngl crvcl/thora CERVICAL RFA Spondylosis of thoracic region without myelopathy or radiculopathy 08/16/2022 10:18 AM EDT [facility] Start: 08-16-2022 End: 08-16-2022 Patient encounter procedure 08/16/2022 Office Visit Physical Medicine and Rehab Julian Spain, SENIOR TECHNICAL RECRUITER - BURNER OPERATOR [address] [facility] [address] [place] [address] [facility] Start: 07-26-2022 End: 07-26-2022 Admission to same day surgery center 07/26/2022 Surgery [facility] Siva Duval MD [address] [place] [address] Bilateral Thoracic facet Radiofrequency ablation Thoracic 4-5, 5-6. [facility] [place] Comment on above: Bilateral Thoracic facet Radiofrequency ablation Thoracic 4-5, 5-6. Start: 07-26-2022 End: 07-26-2022 Dstr nrolytc agnt parverteb fct sngl crvcl/thora CERVICAL RFA Spondylosis of thoracic region without myelopathy or radiculopathy 07/26/2022 10:30 AM EDT [facility] Start: 07-26-2022 Subsequent hospital visit by physician 07/26/2022 Hospital Encounter [facility] Siva Duval MD [address] [place] [address] [facility] Start: 07-19-2022 End: 07-19-2022 Patient encounter procedure 07/19/2022 Office Visit Physical Medicine and Rehab Sisi Mckeon APRN - CNP [address] [facility] [address] [place] [address] [facility] Start: 07-07-2022 Influenza vaccination [facility] Start: 06-28-2022 Annual Wellness Visit (AWV) Annual Wellness Visit (AWV) [facility] Start: 06-28-2022 End: 06-28-2022 Patient encounter procedure 06/28/2022 Office Visit Physical Medicine and Rehab Julian Spain APRN - THERESE [address] [facility] [address] [place] [address] [facility] Start: 06-06-2022 Influenza vaccination Flu vaccine (#1) [facility] Start: 05-30-2022 End: 05-30-2022 Dstrj neurolytic agent other peripheral nerve LUMBAR RFA Bilateral sacroiliitis (HCC) 05/30/2022 12:18 PM EDT [facility] Start: 05-02-2022 End: 05-02-2022 Patient encounter procedure 05/02/2022 Office Visit Physical Medicine and Rehab Julian Spain APRN - THERESE [address] [facility] [address] [place] [address] [facility] Start: 04-19-2022 Creatinine measurement Creatinine monitoring [facility] Start: 04-19-2022 Potassium monitoring Potassium monitoring [facility] Start: 04-14-2022 End: 04-14-2022 Dstrj neurolytic agent other peripheral nerve LUMBAR RFA Bilateral sacroilitis 04/14/2022 11:06 AM EDT [facility] Start: 01-17-2022 End: 01-17-2022 Patient encounter procedure 01/17/2022 Office Visit Physical Medicine and Rehab Julian Spain APRN - THERESE [address] [place] [address] [facility] Start: 12-20-2021 End: 12-20-2021 Dstr nrolytc agnt parverteb fct sngl crvcl/thora CERVICAL RFA BILATERAL SACROILIITIS 12/20/2021 7:59 AM [facility] Start: 12-09-2021 End: 12-09-2021 Patient encounter procedure 12/09/2021 Office Visit Physical Medicine and Rehab Julian Spain APRN - THERESE [address] [facility] [address] [place] [address] [facility] Start: 10-11-2021 End: 10-11-2021 Dstrj neurolytic agent other peripheral nerve LUMBAR RFA Bilateral sacroilitis 10/11/2021 1:12 PM [facility] Start: 07-19-2021 End: 07-19-2021 Patient encounter procedure 07/19/2021 Office Visit Physical Medicine and Rehab Julian Spain APRN - BURNER OPERATOR [address] [facility] [address] [place] [address] [phone] [facility] Start: 07-07-2021 Influenza vaccination Flu vaccine (#1) [facility] Start: 12-29-2020 End: 12-29-2020 Virtual Visit 12/29/2020 Virtual Visit Physical Medicine and Rehab Julian Spain, SENIOR TECHNICAL RECRUITER - BURNER OPERATOR [address] [place] [address] [phone] [facility] Start: 12-08-2020 End: 12-08-2020 Hospital Encounter [facility] [place] Comment on above: Bilateral T-facet RFA @ T3-4, T4-5, T5-6 Left Start: 12-01-2020 End: 12-01-2020 Office Visit 12/01/2020 Office Visit Physical Medicine and Rehab Julian Spain APRN - BURNER OPERATOR [address] [facility] [address] [place] [address] [phone] [facility] Start: 11-12-2020 A1C test (Diabetic or Prediabetic) A1C test (Diabetic or Prediabetic) [employer] Phone: Start: 11-12-2020 Creatinine measurement Creatinine monitoring [facility] [place] Start: 11-12-2020 Creatinine monitoring Creatinine monitoring [employer] Phone: Start: 11-12-2020 HbA1c (Bld) [Mass fraction] A1C test (Diabetic or Prediabetic) [place] [place], [place] Start: 11-12-2020 Hemoglobin A1c measurement A1C test (Diabetic or Prediabetic) [facility] Start: 11-12-2020 Potassium monitoring Potassium monitoring [employer] Phone: Start: 10-20-2020 End: 10-20-2020 Virtual Visit 10/20/2020 Virtual Visit Physical Medicine and Rehab Julian Spain APRN - THERESE [address] [facility] [address] [place] [address] [phone] [facility] Start: 10-08-2020 End: 10-08-2020 Appointment 10/08/2020 Appointment Radiology [facility] Start: 10-05-2020 End: 10-05-2020 Hospital Encounter [facility] Comment on above: L-facet RFA Left side @ L3-4, L4-5, L5-S 1 Start: 09-22-2020 End: 09-22-2020 Office Visit 09/22/2020 Office Visit Physical Medicine and Rehab Julian Spain SENIOR TECHNICAL RECRUITER - BURNER OPERATOR [address] [facility] [address] [place] [address] [phone] [facility] Start: 09-09-2020 End: 09-09-2020 Appointment 09/09/2020 Appointment Radiology [facility] Start: 08-31-2020 End: 08-31-2020 Office Visit 08/31/2020 Office Visit Physical Medicine and Rehab Julian Spain SENIOR TECHNICAL RECRUITER - BURNER OPERATOR [address] [facility] [address] [place] [address] [phone] [facility] Start: 08-11-2020 End: 08-11-2020 Hospital Encounter [facility] Comment on above: SI RFA, right Start: 08-03-2020 End: 08-03-2020 Virtual Visit 08/03/2020 Virtual Visit Physical Medicine and Rehab Julian Spain APRN - BURNER OPERATOR [address] [facility] [address] [place] [address] [phone] [facility] Start: 07-07-2020 Influenza vaccination Flu vaccine (#1) [place], [place] Start: 05-10-2020 Creatinine monitoring Creatinine monitoring [place], [place] Start: 05-10-2020 Potassium monitoring Potassium monitoring [place] Start: 01-14-2020 End: 01-14-2020 Office Visit 01/14/2020 Office Visit Physical Medicine and Rehab Julian Spain SENIOR TECHNICAL RECRUITER - BURNER OPERATOR [address] [facility] [address] [place] [address] [phone] [facility] Start: 12-24-2019 End: 12-24-2019 Hospital Encounter [facility] [place] Comment on above: bilateral SI RFA, Left side Start: 12-17-2019 End: 12-17-2019 Patient encounter procedure 12/17/2019 Office Visit Physical Medicine and Rehab Julian Spain SENIOR TECHNICAL RECRUITER - BURNER OPERATOR [address] [facility] [address] [place] [address] [phone] [facility] Start: 10-28-2019 End: 10-28-2019 Office Visit 10/28/2019 Office Visit Physical Medicine and Rehab Julian Spain, SENIOR TECHNICAL RECRUITER - BURNER OPERATOR [address] [facility] [address] [place] [address] [phone] [facility] Start: 09-30-2019 End: 09-30-2019 Hospital Encounter [facility] Comment on above: Thoracic RFA T-facet T3-4, 4-5, 5-6 Left Start: 09-25-2019 End: 09-25-2019 Office Visit 09/25/2019 Office Visit Physical Medicine and Rehab Julian Spain, SENIOR TECHNICAL RECRUITER - BURNER OPERATOR [address] [facility] [address] [place] [address] [phone] [facility] Start: 07-10-2019 End: 07-10-2019 Office Visit 07/10/2019 Office Visit Physical Medicine and Rehab Julian Spain, SENIOR TECHNICAL RECRUITER - BURNER OPERATOR [address] [facility] [address] [place] [address] [phone] [facility] Start: 07-07-2019 Influenza vaccination Flu vaccine (#1) [place] Start: 04-25-2019 Annual Wellness Visit (AWV) Annual Wellness Visit (AWV) [facility] Start: 12-07-2018 Breast cancer screen Breast cancer screen [place], [place] Start: 12-07-2018 Screening for malignant neoplasm of breast Breast cancer screen [place], [place] Start: 2011 DEXA (modify frequency per FRAX score) DEXA (modify frequency per FRAX score) [place] Start: 2011 Pneumococcal 65+ years Vaccine (1 - PCV) Pneumococcal 65+ years Vaccine (1 - PCV) [facility] Start: 2011 Pneumococcal 65+ years Vaccine (1 of 1 - PPSV23) Pneumococcal 65+ years Vaccine (1 of 1 - PPSV23) [facility] Start: 2011 Pneumococcal 65+ years Vaccine (1 of 2 - PCV13) Pneumococcal 65+ years Vaccine (1 of 2 - PCV13) [place] Start: 2011 Pneumococcal Vaccine: 65+ Years (1 - PCV) Pneumococcal Vaccine: 65+ Years (1 - PCV) [facility] Start: 2009 Annual Wellness Visit (AWV) Annual Wellness Visit (AWV) [place], [place] Start: 2006 Respiratory Syncytial Virus (RSV) or age 60 yrs+ (1 - 1-dose 60+ series) Respiratory Syncytial Virus (RSV) or age 60 yrs+ (1 - 1-dose 60+ series) [facility] Start: 2001 Screening for osteoporosis DEXA (modify frequency per FRAX score) [facility] Start: 1996 Colon cancer screen colonoscopy Colon cancer screen colonoscopy [place], [place] Start: 1996 Screening for malignant neoplasm of colon Colon cancer screen colonoscopy [place] Start: 1996 Shingles Vaccine (1 of 2) Shingles Vaccine (1 of 2) [facility] Start: 1996 Zoster Vaccines (1 of 2) Zoster Vaccines (1 of 2) [facility] Start: 1991 Screening for malignant neoplasm of colon [facility] Start: 1986 Lipid panel Lipid screen [facility] Start: 1986 Lipid screen Lipid screen [place], [place] Start: 1964 Hepatitis C screening [facility] Start: 1962 COVID-19 Vaccine (1 of 2) COVID-19 Vaccine (1 of 2) [place], [place] Start: 1958 COVID-19 Vaccine (1) COVID-19 Vaccine (1) [facility] Start: 1958 Depression Screen Depression Screen [facility] Start: 1951 COVID-19 Vaccine (1) COVID-19 Vaccine (1) [facility] Start: 05-29-1947 COVID-19 Vaccine (#1) COVID-19 Vaccine (#1) [employer] Start: 1946 Annual Wellness Visit (AWV) Annual Wellness Visit (AWV) [facility] [employer] Start: 1946 Hepatitis C screen Hepatitis C screen [place] [place], [place] Start: 1946 Hepatitis C screening Hepatitis C screen [employer] Start: 1946 Lipid panel Lipid Panel [facility] Start: 1946 Medicare Annual Wellness Visit Medicare Annual Wellness Visit (AWV) [facility] Start: 1946 Screening for osteoporosis Bone Density Scan [facility] End: 09-27-2023 Continuous Pulse oximetry, In Phase 1 Continuous Pulse oximetry, In Phase 1 Respiratory Care Routine Continuous until discontinued starting 09/27/2023 [facility] Service Area Work Phone: Comment on above: Continuous until discontinued starting 1 11/27/2022 End: 09-27-2023 ECG 12 lead [facility] Work Phone: Comment on above: Once for 1 Occurrences starting 09/27/20 23 until 09/27/2023 Egd transoral biopsy single/multiple Esophagogastroduodenoscopy Paraesophageal hiatal hernia [facility] EKG 12 Lead EKG 12 Lead ECG STAT 07/03/2022 5:17 AM EDT [facility] [employer] Work Phone: Esophagogastroduodenoscopy EGD E ndoscopy Routine Paraesophageal hiatal hernia Once as needed for 1 Occurrences starting 09/25/2023 [facility] Work Phone: Comment on above: Once as needed for 1 Occurrences startin g 09/25/2023 End: 09-26-2023 Glucose [Mass/volume] in Serum or Plasma POCT Glucose Point of Care Testing - Docked Device Routine Paraesophageal hiatal hernia Once (Lab) for 1 Occurrences starting 09/26/2023 until 09/26/2023 [facility] Service Area Work Phone: Comment on above: Once (Lab) for 1 Occurrences starting until 09/26/2023 End: 09-27-2023 Incentive spirometry Instruct Incentive spirometry Ins truct Respiratory Care Routine Once for 1 Occurrences starting 09/27/2023 until 09/27/2023 [facility] Service Area Work Phone: Comment on above: Once for 1 Occurrences starting 09/27/20 until 09/27/2023 Laps rpr paraesphgl hrna incl fundplsty w/o mesh Repair Diaphragmatic Hernia Laparoscopy Paraesophageal hiatal hernia [facility] Immunizations Immunization Date Immunization Notes Care Provider Fa shira 05-10-2019 tetanus toxoid, redu marysol diphtheria toxoid, and acellular pertussis vaccine, adsorbed Siva PattersonMcintosh [facility] Payers Date Payer Category Payer Medicare [id number] 2022 Medicare [id number] 2014 Medicare MEDICARE MEDICAR E PART A AND B xxxxxxxxxxx 2014-Present [phone] [address] [address] [place] [address] xxxxxxxxxxx [id number] .[id number] 2014 Medicare [id number] [id number] .[id number] 2014 Unknown [employer] xxxxxxxxxx 2014-Present [phone] [address] [place] [address] xxxxxxxxxx [id number].3 .359393.315 2014 Unknown [id number] 1.2.840.437469.1.13.239.2.7.3 .106262.315 1946 Unknown [id number] 2.16.840.1.610045.3.579.2.594 1946 Unknown [id number] 2.16.840.1.166300.3.579.2.124 4 1946 Unknown [id number] 2.16.840.1.512879.3.579.2.124 4 1946 Unknown [id number] 2.16.840.1.446485.3.579.2.124 4 1946 Unknown [id number] 2.16.840.1.191083.3.579.2.93 1946 Unknown [id number] 2.16.840.1.218812.3.579.2.93 1946 Unknown [id number] 2.16.840.1.853927.3.579.2.93 1946 Unknown [id number] 2.16.840.1.722773.3.579.2.93 1946 Unknown [id number] 2.16840.1.681030.3.579.2.93 1946 Unknown [id number] 2.16.840.1.122136.3.579.2.93 1946 Unknown [id number] 2.16.840.1.000572.3.579.2.93 1946 Unknown [id number] 2.16.840.1.898988.3.579.2.93 1946 Unknown [id number] 2.16.840.1.894459.3.579.2.93 1946 Unknown [id number] 2.16.840.1.557124.3.579.2.93 1946 Unknown [id number] 2.16.840.1.660481.3.579.2.93 1946 Unknown [id number] 2.16.840.1.334098.3.579.2.93 1946 Unknown [id number] 2.16.840.1.274228.3.579.2.93 1946 Unknown [id number] 2.16.840.1.542289.3.579.2.93 1946 Unknown [id number] 2.16.840.1.704970.3.579.2.93 1946 Unknown [id number] 2.16.840.1.239948.3.579.2.93 1946 Unknown [id number] 2.16.840.1.814959.3.579.2.93 1946 Unknown [id number] 2.16.840.1.061307.3.579.2.93 1946 Unknown [id number] 2.16.840.1.586492.3.579.2.93 1946 Unknown [id number] 2.16.840.1.856250.3.579.2.93 Social History Date Type Detail Facility Start: 06-24-2019 End: 06-28-2022 Tobacco smoking status NHIS Never smoker [place] Start: 06-24-2019 End: 01-17-2024 Alcohol intake No [facility] Start: 1945 Sex Assigned At Not on file [place] Start: 11-26-2019 End: 01-17-2024 Alcohol intake Current non-drinker of alcohol (finding) [place] Start: 07-17-2020 End: 06-28-2022 Tobacco use and exposure Never used [place] Start: 04-04-2022 End: 11-09-2023 Exposure to SARS-CoV-2 (event) Not sure [place] Start: 12-29-2020 End: 01-17-2024 Alcohol intake [facility] Start: 1945 Sex Assigned At Female [facility] Work Phone: Start: 09-11-2023 Gender identity Identifies as female gender (finding) [facility] Work Phone: Start: 09-11-2023 Sexual orientation Heterosexual (finding) [facility] Work Phone: Start: 09-25-2023 End: 10-12-2023 Alcohol intake Lifetime non-drinker (finding) [facility] Work Phone: How often to you hav e a drink containing alcohol? Never [facility] How many standard drinks containing alcohol do you have on a typical day? Patient does not drink [facility] Work Phone: In the past 12 month s, was there a time when you were not able to pay the mortgage or rent on time? No [facility] Work Phone: Clinical Notes 11-26-2019 to 01-19-2024 Juanjo Miller PTA - 01/19/2024 8:00 AM Yumiko Patton MD - 11/09/2023 11:00 AM ESTPatient InstructionsChance Patton MD - 10/12/2023 11:15 AM ESTPatient InstructionsDischarge Instructions Note Date & Type Note Facility 01-19-2024 History of Present illness Narrative [facility] PHYSICAL THERAPY [] EVALUATION [] DAILY NOTE (LAND) [x] DAILY NOTE (AQUATIC ) [] PROGRESS NOTE [] DISCHARGE NOTE [] [facility]PAT[facility] [] [facility] [place] [] [facility] [x] [facility] Date: 01/19/2024 Patient Name: Kenn [place] : 1945 CSN: [id number] Referring Practitioner Julian Spain, SENIOR TECHNICAL RECRUITER - BURNER OPERATOR Diagnosis Pain in thoracic spine Other low back pain Other chronic pain Weakness Treatment Diagnosis M54.6 Thoracic Pain M54.59, G89.29 Chronic Lower Back Pain R53.1 Weakness Date of Evaluation 01/05/24 Additional Pertinent History HTN; incontinence; DM; obesity; OA Functional Outcome Measure Used Modified TOMASZ Functional Outcome Score 21 or 42% disability (01/05/24) Insurance: Primary: Payor: [facility] MED[facility]ARE / / / , Aquatic therapy and modalities are covered; $40 co-pay Secondary: Authorization Information: Received auth for 8 PT visits for CPT codes 91870, 46207, 73213, 87836 and 55841 and 35317 from 01/08/24 through 03/07/24. Approved Procedure Codes: 68752 - Therapeutic Exercise , 12677 - Manual Therapy , 08300 - Aquatic Therapeutic Exercise, 04141 - Neuromuscular Re-Education , 08377 - Therapeutic Activities, and 59640 - Ultrasound (Codes requested indicated by red font, codes approved indicated by black font) Visit # 5, 03/15 for progress note (Reporting Period: 01/05/24 to 02/02/24 ) Visits Allowed: Based on medical necessity Recertification Date: March 01 Physician Follow-Up: Physician Orders: History of Present Illness: Kenn is referred to PT to address recent exacerbation of mid and low back pain. She has been receiving injections for quite some time and recently went to see Dr. Pedro with [facility] who indicated that she was not a surgical candidate. Recent x-rays showed significant degenerative changes throughout her entire spine. She denies any radicular symptoms; describes pain and fatigue. SUBJECTIVE: Subjective reports of constant pain in the Low Back, rated 1/10 upon initial interview this date. AQUATICS TREATMENT Precautions: Pain:0/10 Mid, low back X in shaded column indicates activity completed today Exercise/Intervention Sets/Sec Notes Walk Forward X2 laps X Walk Backward X2 laps X Walk Sideways X2 laps X Tandem Walk X2 laps X Lower Extremity Exercises: Heel/Toe Raises x15 X Marches x15 X Squats x[address] Hip x15 X Hamstring Curls x15 X Lunges x15 X Step-Ups Lower Extremity Stretches: Seated Exercises: Upper Extremity Exercises: Shoulder Flexion x15 X With stabs Shoulder ABD/ADD x15 X Shoulder Horizontal ABD/ADD x15 X Shoulder IR/ER x15 X Shoulder Circles Shoulder Shrugs Rows Bicep Curls Upper Extremity Stretches: Balance: Dynamic Gait: [place]: Hang x5 min X Bicycle x5 min X Improved with maintaining position. Hip ABD/ADD x2 min X Hip Flex/Ext X2 min X Specific Interventions Next Treatment: Initiate aquatic therapy program Activity/Treatment Tolerance: [] Patient tolerated treatment well [] Patient limited by fatigue [] Patient limited by pain [] Patient limited by medical complications [] Other: Assessment: Treatment intervention completed as recorded above. Progressed to greater repetitions this date. Patient tolerated treatment well. Body Structures/Functions/Activity Limitations: edema, impaired activity tolerance, impaired endurance, impaired muscle tone, impaired ROM, impaired strength, pain, abnormal gait, and abnormal posture Prognosis: good GOALS: Patient Goal: Resolve back pain; be able to walk/stand for 60+ min Short Term Goals: Time Frame: 3 weeks Kenn will maintain neutral spine while performing 10 reps of all exercises in the pool. Kenn's standing tolerance will improve to 30+ min as he strength improves allowing her to cook/clean without being limited by pain. Kenn's Modified TOMASZ will improve to <11 indicating moderate disability related to her back pain. Kenn will transition from pool to land based program to establish functional HEP. [employer] Goals: Time Frame: 6 weeks Kenn will be discharged from PT with independent HEP to maintain all gains achieved in clinic. Kenn's Modified TOMASZ will improve to <5 indicating minimal to no disability related to her back pain. Kenn will be able to walk, stand for >60 min, maintaining neutral spine, allowing her tor return to all activities without limitation. Patient Education: [x] HEP/Education Completed: Plan of Care, Goals, aquatic therapy contract Remind Access Code: [] No new Education completed [] Reviewed Prior HEP [x] Patient verbalized and/or demonstrated understanding of education provided. [] Patient unable to verbalize and/or demonstrate understanding of education provided. Will continue education. [x] Barriers to learning: n/a PLAN: Treatment Recommendations: Strengthening, Range of Motion, Balance Training, Gait Training, Stair Training, Neuromuscular Re-education, Manual Therapy - Soft Tissue Mobilization, Manual Therapy - Joint Manipulation, Pain Management, Home Exercise Program, Patient Education, Aquatics, and Modalities [] Plan of care initiated. Plan to see patient 2 times per week for 6 weeks to address the treatment planned outlined above. [x] Continue with current plan of care [] Modify plan of care as follows: [] Hold pending physician visit [] Discharge Time In 4 Time Out 0832 Timed Code Minutes: 38 min Total Treatment Time: 38 min Electronically Signed by: Juanjo Miller, [id number] documented in this encounter [facility] 11-09-2023 History of Present illness Narrative Subjective Patient ID: Kenn [place] is a 77 y.o. female who presents for Follow-up. HPI 77-year-old female patient who underwent laparoscopic repair of a giant paraesophageal hernia with toupet wrap and gastropexy on 09/27. She is here in follow-up. She has intermittent pain in her back occurring 2-3 times per week but not as severe as before the surgery. Had one episode yesterday with nausea but resolved. She is tolerating diet with no nausea, vomiting, heartburn or acid reflux. She is taking Protonix 40 mg once daily. Objective Physical Exam Abd: soft, non-distended, tenderneness over LUQ incision Assessment/Plan Patient continues to do well. She will stop the Protonix. Follow-up in 1 month; if the back pain persist, I will obtain upper GI to rule out recurrent hiatal hernia. All questions answered Chance Patton MD 11/09/23 11:36 AM documented in this encounter [facility] Work Phone: 11-09-2023 Instructions Chance Patton MD - 11/09/2023 11:00 AM EST Follow-up in 1 month; stop taking the pantoprazole documented in this encounter [facility] Work Phone: 11-09-2023 Note LOCATION: [facility] PROCEDURE: [facility] AMI DIGITAL SCREEN SELF REFERRAL W OR WO CAD BILATERAL CLINICAL INFORMATION: Visit for screening mammogram. Tomosynthesis. PATIENT MEDICAL HISTORY: No relevant medical history has been documented for this patient. FAMILY HISTORY: No relevant family history has been documented for this patient. RISK VALUES: Tyrer-Cuzick 10yr.: na%, Tyrer-Cuzick life: 1.46% COMPARISON: 10/17/2022, 10/11/2021 TECHNIQUE: Bilateral CC and MLO views of the breasts were obtained. 3D tomosynthesis was utilized. CAD was utilized. BREAST COMPOSITION: There are scattered fibroglandular elements in the breast(s) that could obscure a lesion on mammography. FINDINGS: Stable appearing nodular densities within the left breast are noted. No significant masses, calcifications, or other findings are seen in the breast(s). There has been no significant interval change. IMPRESSION: No mammographic evidence of malignancy. A 1 year screening mammogram is recommended. A result letter will be sent to the patient. She will also receive a reminder 1 month prior to her next mammogram. BI-RADS CATEGORY 2: BENIGN FINDINGS. Management Recommendation: Routine annual mammography. This report has been created using voice recognition software. It may contain minor errors which are inherent in voice recognition technology. Final report electronically signed by Dr. Isaiah Andrews on 11/08/2023 10:45 PM Interpreted by: Bacilio Andrews MD Signed by: Bacilio Andrews MD 11/08/23 CC Recipients: Sam Hung MD - Fax Final result [facility] 10-12-2023 History of Present illness Narrative Subjective Patient ID: Kenn Rodriguez is a 77 y.o. female who presents for Post-op. HPI 77-year-old female patient who underwent laparoscopic repair of a giant paraesophageal hernia with toupet wrap, gastropexy and gastroscopy on September 27; she is here in follow-up with her . She is tolerating soft diet. Denies nausea, vomiting, heartburn and acid reflux. She has pain over the left upper quadrant incision. She is increasing her activities. Objective Physical Exam Abd: soft, non-distended, tenderness over LUQ; no infection Assessment/Plan Satisfactory postoperative course. Patient will resume regular diet; Protonix 40 once daily; follow up in 1 month Chance Patton MD 10/12/23 11:33 AM documented in this encounter [facility] Work Phone: 10-12-2023 Instructions Chance Patton MD - 10/12/2023 11:15 AM EST Start regular diet, chew well and eat smaller meals; follow-up in 1 month; take protonix 40 mg once daily documented in this encounter [facility] Work Phone: 09-29-2023 Hospital course Narrative Discharge Diagnosis Paraesophageal hiatal hernia Issues Requiring Follow-Up Follow up with Dr. Patton in two weeks Test Results Pending At Discharge Pending Labs No current pending labs. Hospital Course 77-year-old female presents to the clinic with symptomatic paraesophageal hernia. After risks versus benefits were discussed it was decided to proceed with a laparoscopic hiatal hernia repair. Patient's hospitalization and procedure without complication. Her pain is well controlled. She will go home in stable condition. Home Medications Medication List START taking these medications docusate sodium 100 mg capsule; Commonly known as: Colace; Take 1 capsule (100 mg) by mouth 2 times a day. HYDROcodone-acetaminophen 5-325 mg tablet; Commonly known as: [place]; Take 1 tablet by mouth every 6 hours if needed for severe pain (7 - 10) for up to 5 days. ondansetron 4 mg tablet; Commonly known as: Zofran; Take 1 tablet (4 mg) by mouth every 8 hours if needed for nausea or vomiting. simethicone 80 mg chewable tablet; Commonly known as: Mylicon; Chew 1 tablet (80 mg) 3 times a day. CONTINUE taking these medications acetaminophen 500 mg tablet; Commonly known as: Tylenol acyclovir 400 mg tablet; Commonly known as: Zovirax aspirin 81 mg EC tablet Lipitor 80 mg tablet; Generic drug: atorvastatin lisinopriL-hydrochlorothiazide 20-25 mg tablet NIFEdipine ER 30 mg 24 hr tablet; Commonly known as: Adalat CC Tenormin 25 mg tablet; Generic drug: atenolol Outpatient Follow-Up No future appointments. UMESH Ovalle documented in this encounter [facility] Work Phone: 09-29-2023 Plan of care note The patient's goals for the shift include The clinical goals for the shift include adequate pain control Problem: Safety - Adult Goal: Free from fall injury Outcome: Progressing Problem: Chronic Conditions and Co-morbidities Goal: Patient's chronic conditions and co-morbidity symptoms are monitored and maintained or improved Outcome: Progressing Problem: Pain - Adult Goal: Verbalizes/displays adequate comfort level or baseline comfort level Outcome: Progressing 1 PM, pt saturation at 91-93 % RA at rest. [facility] 09-29-2023 Miscellaneous Notes The patient's goals for the shift include The clinical goals for the shift include adequate pain control Problem: Safety - Adult Goal: Free from fall injury Outcome: Progressing Problem: Chronic Conditions and Co-morbidities Goal: Patient's chronic conditions and co-morbidity symptoms are monitored and maintained or improved Outcome: Progressing Problem: Pain - Adult Goal: Verbalizes/displays adequate comfort level or baseline comfort level Outcome: Progressing 1 PM, pt saturation at 91-93 % RA at rest. The patient's goals for the shift include pain control The clinical goals for the shift include patient will state pain tolerable throughout the shift Problem: Pain - Adult Goal: Verbalizes/displays adequate comfort level or baseline comfort level 09/28/2023 111 by Ilan Marin RN Outcome: Progressing 09/28/2023 111 by Ilan Marin RN Outcome: Progressing Problem: Safety - Adult Goal: Free from fall injury 09/28/2023 1119 by Ilan Marin RN Outcome: Progressing 09/28/2023 111 by Ilan Marin RN Outcome: Progressing Problem: Discharge Planning Goal: Discharge to home or other facility with appropriate resources 09/28/2023 111 by Ilan Marin RN Outcome: Progressing 09/28/20231118 by Ilan Marin RN Outcome: Progressing Problem: Chronic Conditions and Co-morbidities Goal: Patient's chronic conditions and co-morbidity symptoms are monitored and maintained or improved 09/28/2023 1119 by Ilan Marin RN Outcome: Progressing 09/28/2023 1119 by Ilan Marin RN Outcome: Progressing The patient's goals for the shift include to get up and sit in the chair The clinical goals for the shift include Pain will be managed at a tolerable level throughout this shift. Over the shift, the patient did not make progress toward the following goals. Barriers to progression include . Recommendations to address these barriers include . Problem: Pain - Adult Goal: Verbalizes/displays adequate comfort level or baseline comfort level Outcome: Progressing Flowsheets (Taken 09/27/20231840) Verbalizes/displays adequate comfort level or baseline comfort level: Encourage patient to monitor pain and request assistance Assess pain using appropriate pain scale Administer analgesics based on type and severity of pain and evaluate response Implement non-pharmacological measures as appropriate and evaluate response Consider cultural and social influences on pain and pain management Notify Licensed Independent Practitioner if interventions unsuccessful or patient reports new pain Problem: Safety - Adult Goal: Free from fall injury Outcome: Progressing Flowsheets (Taken 09/27/20231840) Free from fall injury: Instruct family/caregiver on patient safety Problem: Discharge Planning Goal: Discharge to home or other facility with appropriate resources Outcome: Progressing Flowsheets (Taken 09/27/20231840) Discharge to home or other facility with appropriate resources: Identify barriers to discharge with patient and caregiver Arrange for needed discharge resources and transportation as appropriate Identify discharge learning needs (meds, wound care, etc) Refer to discharge planning if patient needs post-hospital services based on physician order or complex needs related to functional status, cognitive ability or social support system Problem: Chronic Conditions and Co-morbidities Goal: Patient's chronic conditions and co-morbidity symptoms are monitored and maintained or improved Outcome: Progressing Flowsheets (Taken 09/27/20231840) Care Plan - Patient's Chronic Conditions and Co-Morbidity Symptoms are Monitored and Maintained or Improved: Monitor and assess patient's chronic conditions and comorbid symptoms for stability, deterioration, or improvement Collaborate with multidisciplinary team to address chronic and comorbid conditions and prevent exacerbation or deterioration Update acute care plan with appropriate goals if chronic or comorbid symptoms are exacerbated and prevent overall improvement and discharge The patient's goals for the shift include The clinical goals for the shift include Pain will be managed at a tolerable level throughout this shift. Over the shift, the patient did make progress toward care plan goals. I was the surgical second assist to Dr. Patton for Kenn Rodriguez's procedure on 09/27/23. Procedure: DIFFICULT LAPAROSCOPIC GIANT PARAESOPHAGEAL HERNIA REPAIR WITH TOUPET WRAP, GASTROPEXY, GASTROSCOPY Viri Baker PA-C Called patient's , per Dr Patton's request, to inform him the procedure is still in progress Spoke to patient's on the phone, per Dr Patton's request, to inform him surgery has started. DIFFICULT LAPAROSCOPIC GIANT HIATAL HERNIA REPAIR WITH TOUPET WRAP, GASTROPEXY, GASTROSCOPY Operative Note Date: 09/27/2023 OR Location: [facility] Name: Kenn Rodriguez, : 1945, Age: 77 y.o., , Sex: female Diagnosis Pre-op Diagnosis * Paraesophageal hiatal hernia [K44.9] Post-op Diagnosis * Paraesophageal hiatal hernia [K44.9] Procedures DIFFICULT LAPAROSCOPIC GIANT PARAESOPHAGEAL HERNIA REPAIR WITH TOUPET WRAP, GASTROPEXY, GASTROSCOPY [id number] - HI LAPS RPR PARAESPHGL HRNA INCL FUNDPLSTY W/O MESH Surgeons Chance Patton MD Resident/Fellow/Other [employer] Foreign Language Tutor: Surgeon(s) and Role: * Viri Baker PA-C; Julian Procedure Summary Anesthesia: General ASA: II Anesthesia Staff: Anesthesiologist: Real Rebolledo MD SCIENCE CENTER DISPLAY BUILDER: Susan Ramsey APRN-SCIENCE CENTER DISPLAY BUILDER Estimated Blood Loss: MINIMAL Intra-op Medications: Medication Name Total Dose heparin (porcine) injection 5,000 Units 5,000 Units vancomycin (Vancocin) 1,500 mg in dextrose 5 % in water (D5W) 500 mL IV 1,500 mg Anesthesia Record Intraprocedure I/O Totals Intake Propofol Drip 0.00 mL The total shown is the total volume documented since Anesthesia Start was filed. lactated Ringer's infusion 500.00 mL vancomycin (Vancocin) 1,500 mg in dextrose 5 % in water (D5W) 500 mL IV 530.00 mL Total Intake 1030 mL Output Est. Blood Loss 30 mL Total Output 30 mL Net Net Volume 1000 mL Specimen: No specimens collected Staff: Fisheries Manager: Dina Crawford RN Scrub Person: Lulu Ware Findings: Giant paraesophageal hernia with entire stomach and large amount of omentum herniated into chest; herniated stomach is partially volvulized but no obstruction; dense hernia sac and mediastinum adhesions INDICATIONS FOR PROCEDURE 77 y/o morbidly obese female patient with symptomatic giant paraesophageal hernia. History of large esophageal hernia for over 7 yrs. Worsening epigastric pain, nausea with CT scan at outside hospital showing herniation of entire stomach with non-obstructed volvulized stomach. The patient underwent esophagram and EGD which confirmed the giant paraesophageal hernia with non-obstructed, volvulized stomach. I discussed findings with patient and . The patient was consented for laparoscopic paraesophageal hernia repair with Toupet wrap and EGD. I explained to the patient and the procedure, the risks and complications which include but not limited to IL, stroke, bleeding, infection, esophageal injury, gastric injury, vagus nerve injury, vascular injury, injury to surrounding structures, delayed gastric emptying requiring another surgery, dysphagia requiring dilation, excessive flatulence and gas and recurrence. All questions answered and is willing to proceed. DETAILS OF THE PROCEDURE: After informed consent was obtained, the patient was brought into the operating room and placed in the supine position. The huddle and time-out were performed. General anesthesia was obtained without difficulty. She got 5000 units of subQ heparin and vanco due to PCN allergy. She was placed in the modified lithotomy position on the split legs table. All pressure points were padded and protected. Abdomen was prepped and draped with Chloraprep. A stab incision was made in the left upper quadrant. A Veress needle was placed. Pneumoperitoneum was obtained with CO2 at 15 mmHg. A 5 mm optical trocar was placed in the supra-umbilical region. There was no evidence of iatrogenic injury. 5 mm trocars were placed along the bilateral anterior axillary lines. In the left upper quadrant, a 12 mm trocar was placed. The liver retractor was placed. LUQ greater omental adhesions taken down with the Ligasure. A very large, type 3 paraesophageal hernia with entire herniated stomach and large amount of greater omentum. The patient was placed in reverse Trendelenburg with the left side up. The stomach was partially volvulized and was partially reduced. The short gastric vessels were ligated with the LigaSure starting from the inferior pole of the spleen extending to the left jay of the diaphragm. The dense hernia sac was dissected away from the diaphragm circumferentially. The retroesophageal window was created. The Latisha drain was placed. I proceeded with tedious mediastinal dissection due to dense adhesions lasting for 45 minutes. I continued my dissection allowing for 4-5 cm intraabdominal esophageal length. Both the anterior and posterior vagus nerves were identified and preserved during my dissection. Very large Hernia sac resected and removed from the intraabdominal cavity in a specimen bag. C02 decreased to 10 mmhg. The crura were reapproximated with 0 Ethibond sutures using Autosuture device; three sutures placed posteriorly in a figure of eight fashion ensuring a grasper width space between esophagus and crura. A marking stitch was placed at the fundus which was brought around the esophagus to the right side. A lighted 56-Mongolian bougie was placed. The shoeshine maneuver was performed and there was no tension on the fundus. I proceeded to create a 2 to 3 cm Toupet wrap securing the esophagus to the fundus using three 0-ethibond sutures on either side. The wrap was then anchored to the diaphragm at the 6, 3 and 9'0 clock positions. I then broke scrub and the adult gastroscope was placed in the oral cavity, advanced to the stomach and withdrawn. No mucosal injury. On retroflexion, the wrap was intact. Gastric content and air were then suctioned out. I scrubbed back into the case. Liver retractor removed and bleeding from the liver capsule where the retractor was controlled with Bipolar. Two transfascial gastropexy sutures placed along greater curvature using 2-0 vicryl. The left upper quadrant 12 mm trocar site was reapproximated with #1 Ethibond with a Juan Diego-Sudha in a [id number] fashion. Bilateral subcostal Elise block performed with 0.25% mercaine with epi. The CO2 was evacuated. The skin was reapproximated with 4-0 Monocryl in a subcuticular fashion. LiquiBand was placed. The patient was extubated. I spoke to the patient's about the intraoperative findings. All questions were answered. Chance Patton Reviewed pre-op instructions with patient including NPO after midnight, must have front end loader driver, hospital and check in location, and day of surgery routine. documented in this encounter [facility] Work Phone: 09-29-2023 History of Present illness Narrative General Surgery Progress Note Patient: Kenn Rodriguez Unit/Bed: [id number] Date of : 1945 Acct: [id number] Admitting Diagnosis: Paraesophageal hiatal hernia [K44.9] Date: 09/27/2023 Hospital Day: 2 Attending: Chance Patton MD No chief complaint on file. SUBJECTIVE Patient seen and examined this morning. No acute events overnight. VITALS Vitals: 09/28/23 1406 09/28/23 2000 09/28/23 2030 09/29/23 0527 BP: 101/55 96/54 110/55 BP Location: Left arm Patient Position: Lying Pulse: 57 57 62 Resp: 16 18 16 Temp: 36.1 C (97 F) 36.4 C (97.5 F) 35.4 C (95.7 F) TempSrc: Temporal SpO2: 91% (!) 89% 95% 91% Weight: Height: Intake/Output Summary (Last 24 hours) at 09/29/2023 0910 Last data filed at 09/28/2023 1359 Gross per 24 hour Intake 275 ml Output -- Net 275 ml Wt Readings from Last 4 Encounters: 09/27/23 101 kg (222 lb 14.2 oz) 09/26/23 101 kg (222 lb 7.1 oz) 09/25/23 103 kg (226 lb) Allergies: Allergies Allergen Reactions Penicillins Anaphylaxis, Hives, Rash, Shortness of breath and Swelling PHYSICAL EXAM Physical Exam HENT: Head: Normocephalic and atraumatic. Mouth/Throat: Mouth: Mucous membranes are dry. Pharynx: Oropharynx is clear. Eyes: Extraocular Movements: Extraocular movements intact. Pupils: Pupils are equal, round, and reactive to light. Cardiovascular: Rate and Rhythm: Normal rate and regular rhythm. Pulses: Normal pulses. Heart sounds: S1 normal and S2 normal. Pulmonary: Effort: Pulmonary effort is normal. Breath sounds: Normal breath sounds. Decreased air movement present. Abdominal: General: Abdomen is flat. Bowel sounds are normal. There is no distension. Palpations: Abdomen is soft. Tenderness: There is generalized abdominal tenderness. There is no guarding. Comments: Laparotomy sites clean, dry, and intact. Expected postop tenderness Musculoskeletal: General: No swelling or tenderness. Normal range of motion. Cervical back: Normal range of motion. Skin: General: Skin is warm and dry. Capillary Refill: Capillary refill takes less than 2 seconds. Neurological: General: No focal deficit present. Mental Status: She is alert and oriented to person, place, and time. Psychiatric: Attention and Perception: Attention normal. Mood and Affect: Mood normal. Speech: Speech normal. Behavior: Behavior normal. Behavior is cooperative. LABS CBC: Results from last 7 days Lab Units 09/28/23 0935 WBC AUTO x10*3/uL 16.5* RBC AUTO x10*6/uL 4.11 HEMOGLOBIN g/dL 13.3 HEMATOCRIT % 41.0 MCV fL 100 MCH pg 32.4 MCHC g/dL 32.4 RDW % 15.0* PLATELETS AUTO x10*3/uL 219 CMP: Results from last 7 days Lab Units 09/28/23 0935 SODIUM mmol/L 134* POTASSIUM mmol/L 3.9 CHLORIDE mmol/L 101 CO2 mmol/L 22 BUN mg/dL 33* CREATININE mg/dL 1.12* GLUCOSE mg/dL 183* PROTEIN TOTAL g/dL 6.2* CALCIUM mg/dL 8.5* BILIRUBIN TOTAL mg/dL 0.5 ALK PHOS U/L 61 AST U/L 158* ALT U/L 219* BMP: Results from last 7 days Lab Units 09/28/23 0935 SODIUM mmol/L 134* POTASSIUM mmol/L 3.9 CHLORIDE mmol/L 101 CO2 mmol/L 22 BUN mg/dL 33* CREATININE mg/dL 1.12* CALCIUM mg/dL 8.5* GLUCOSE mg/dL 183* Magnesium: Results from last 7 days Lab Units 09/28/23 0935 MAGNESIUM mg/dL 1.62 alum-mag hydroxide-simeth, 20 mL, oral, TID atenolol, 25 mg, oral, Daily atorvastatin, 80 mg, oral, Nightly enoxaparin, 40 mg, subcutaneous, Daily lidocaine, 1 patch, transdermal, Daily lisinopril 20 mg, hydroCHLOROthiazide 25 mg for Zestoretic/Prinizide, , oral, Daily NIFEdipine ER, 30 mg, oral, Daily before breakfast Current Outpatient Medications Medication Instructions acetaminophen (TYLENOL) 500 mg, oral, Every 6 hours PRN acyclovir (ZOVIRAX) 400 mg, oral, 2 times daily (0900,1400) aspirin 81 mg, oral, Daily atenolol (TENORMIN) 25 mg, oral, Daily atorvastatin (LIPITOR) 80 mg, oral, Daily lisinopriL-hydrochlorothiazide 20-25 mg tablet 1 tablet, oral, 2 times daily with meals NIFEdipine ER (ADALAT CC) 30 mg, oral, Daily before breakfast, Do not crush, chew, or split. Assessment Patient Active Problem List Diagnosis Paraesophageal hiatal hernia Hyperlipidemia HTN (hypertension) Subjective Patient resting comfortably in the chair. She reports expected postoperative pain. On examination, her breath sounds are decreased, her abdomen is tender, and the laparotomy sites are clean, dry, and intact. She is on oxygen at this time and does not required at home. She is encouraged using her incentive spirometer and to ambulate. We will reassess her oxygen requirements and pending stable SPO2 on room air patient will be discharged today. Impression POD 2 hiatal hernia repair Plan: Pain control Nausea control Pulmonary toilet, encourage incentive spirometer Encourage ambulation Full liquid diet, no straws or carbonation Further recommendations per Dr. Patton Patient seen and examined. I have reviewed and discussed CONSTANZA note. Tolerating full liquid diet with no nausea or vomiting; Some improvement in incisional pain, still on 2 L oxygen and dropping to high 80's off it; patient pulling up to 500 ml on the incentive spirometer; will continue pulm toilet and neb; goal is to wean oxygen; subQ lovenox Kenn Rodriguez is a 77 y.o. female on day 1 of admission presenting with Paraesophageal hiatal hernia. Subjective Patient sitting comfortably in chair, no acute events overnight Objective Physical Exam HENT: Head: Normocephalic. Nose: Nose normal. Mouth/Throat: Mouth: Mucous membranes are moist. Eyes: Conjunctiva/sclera: Conjunctivae normal. Pupils: Pupils are equal, round, and reactive to light. Cardiovascular: Rate and Rhythm: Normal rate. Pulmonary: Effort: Pulmonary effort is normal. Breath sounds: Examination of the right-lower field reveals decreased breath sounds. Examination of the left-lower field reveals decreased breath sounds. Decreased breath sounds present. Abdominal: General: Bowel sounds are normal. Palpations: Abdomen is soft. Tenderness: There is abdominal tenderness in the left upper quadrant. Comments: Surgical glue intact over incisions Musculoskeletal: General: Normal range of motion. Cervical back: Normal range of motion. Skin: General: Skin is warm. Neurological: General: No focal deficit present. Mental Status: She is alert and oriented to person, place, and time. Psychiatric: Mood and Affect: Mood normal. Behavior: Behavior normal. Judgment: Judgment normal. Last Recorded Vitals Blood pressure 141/65, pulse 63, temperature 35.8 C (96.4 F), temperature source Temporal, resp. rate 16, height 1.575 m (5' 2.01 ), weight 101 kg (222 lb 14.2 oz), SpO2 92 %. Intake/Output last 3 Shifts: I/O last 3 completed shifts: In: 2969.2 (29.4 mL/kg) [P.O.:240; I.V.:2199.2 (21.8 mL/kg); IV Piggyback:530] Out: 155 (1.5 mL/kg) [Urine:125 (0 mL/kg/hr); Blood:30] Dosing Weight: 101.1 kg Relevant Results Lab Results Component Value Date GLUCOSE 183 (H) 09/28/2023 CALCIUM 8.5 (L) 09/28/2023 NA 134 (L) 09/28/2023 K 3.9 09/28/2023 CO2 22 09/28/2023 CL 101 09/28/2023 BUN 33 (H) 09/28/2023 CREATININE 1.12 (H) 09/28/2023 Lab Results Component Value Date WBC 16.5 (H) 09/28/2023 HGB 13.3 09/28/2023 HCT 41.0 09/28/2023 MCV 100 09/28/2023 PLT 219 09/28/2023 Assessment/Plan Patient sitting in chair comfortably. She states she received pain medication 30 minutes ago so pain is 3 out of 10, very tolerable. She states her pain is mostly to the left upper quadrant. Patient denies nausea vomiting. Last bowel movement Monday. Patient states she did she is passing gas and burping. Patient tolerating diet. Impression POD 1 hiatal hernia repair Plan - Pain control - Nausea control - Full liquid, no straws or carbonated beverages - DC IV fluids - Trend LFTs - Pulmonary toilet - Encourage ambulation Further recommendations per Dr. Patton Principal Problem: Paraesophageal hiatal hernia Active Problems: Hyperlipidemia HTN (hypertension) Plan of care was discussed extensively with patient. Patient verbalized understanding through teach back method. All questions and concerns addressed upon examination. Of note, this documentation is completed using the [employer] Dictation system (voice recognition software). There may be spelling and/or grammatical errors that were not corrected prior to final submission. Linnea Huang APRN-BURNER OPERATOR Patient seen and examined. I discussed and reviewed SENIOR TECHNICAL RECRUITER note. Incisional pain making ambulation difficult; tolerating the full liquid diet; patient will be kept in the hospital for adequate pain management; subQ lovenox/pulm toilet documented in this encounter [facility] Work Phone: 09-28-2023 Hospital Discharge instructions UMESH Alvarez - 09/28/2023 3:26 PM EST Follow-up with Dr. Patton in 2 weeks Call office or come to ER if: You have a fever of 100.4 Fahrenheit You cannot tolerate food or water Unable to urinate Chest pain or shortness of breath Eat slow and small bites, and do not drink or eat at the same time. Please avoid salad, bread, carbonated beverages, and straws until follow up with Dr. Patton and get the okay to resume Do not drive or operate machinery while taking narcotics. Do not lift more than 10lbs until follow up and get clearance. documented in this encounter [facility] Work Phone: 09-28-2023 Plan of care note The patient's goals for the shift include pain control The clinical goals for the shift include patient will state pain tolerable throughout the shift Problem: Pain - Adult Goal: Verbalizes/displays adequate comfort level or baseline comfort level 09/28/20231118 by Ilan Marin RN Outcome: Progressing 09/28/20231118 by Ilan Marin RN Outcome: Progressing Problem: Safety - Adult Goal: Free from fall injury 09/28/2023 111 by Ilan Marin RN Outcome: Progressing 09/28/20231118 by Ilan Marin RN Outcome: Progressing Problem: Discharge Planning Goal: Discharge to home or other facility with appropriate resources 09/28/20231118 by Ilan Marin RN Outcome: Progressing 09/28/20231118 by Ilan Marin RN Outcome: Progressing Problem: Chronic Conditions and Co-morbidities Goal: Patient's chronic conditions and co-morbidity symptoms are monitored and maintained or improved 09/28/20231118 by Ilan Marin RN Outcome: Progressing 09/28/20231118 by Ilan Marin RN Outcome: Progressing [facility] 09-28-2023 Plan of care note The patient's goals for the shift include to get up and sit in the chair The clinical goals for the shift include Pain will be managed at a tolerable level throughout this shift. Over the shift, the patient did not make progress toward the following goals. Barriers to progression include . Recommendations to address these barriers include . [facility] 09-27-2023 Plan of care note Problem: Pain - Adult Goal: Verbalizes/displays adequate comfort level or baseline comfort level Outcome: Progressing Flowsheets (Taken 09/27/20231840) Verbalizes/displays adequate comfort level or baseline comfort level: Encourage patient to monitor pain and request assistance Assess pain using appropriate pain scale Administer analgesics based on type and severity of pain and evaluate response Implement non-pharmacological measures as appropriate and evaluate response Consider cultural and social influences on pain and pain management Notify Licensed Independent Practitioner if interventions unsuccessful or patient reports new pain Problem: Safety - Adult Goal: Free from fall injury Outcome: Progressing Flowsheets (Taken 09/27/20231840) Free from fall injury: Instruct family/caregiver on patient safety Problem: Discharge Planning Goal: Discharge to home or other facility with appropriate resources Outcome: Progressing Flowsheets (Taken 09/27/20231840) Discharge to home or other facility with appropriate resources: Identify barriers to discharge with patient and caregiver Arrange for needed discharge resources and transportation as appropriate Identify discharge learning needs (meds, wound care, etc) Refer to discharge planning if patient needs post-hospital services based on physician order or complex needs related to functional status, cognitive ability or social support system Problem: Chronic Conditions and Co-morbidities Goal: Patient's chronic conditions and co-morbidity symptoms are monitored and maintained or improved Outcome: Progressing Flowsheets (Taken 09/27/20231840) Care Plan - Patient's Chronic Conditions and Co-Morbidity Symptoms are Monitored and Maintained or Improved: Monitor and assess patient's chronic conditions and comorbid symptoms for stability, deterioration, or improvement Collaborate with multidisciplinary team to address chronic and comorbid conditions and prevent exacerbation or deterioration Update acute care plan with appropriate goals if chronic or comorbid symptoms are exacerbated and prevent overall improvement and discharge The patient's goals for the shift include The clinical goals for the shift include Pain will be managed at a tolerable level throughout this shift. Over the shift, the patient did make progress toward care plan goals. [facility] Work Phone: 09-27-2023 Nurse Note Patient had elevated BP and c/o pain in mid chest at approximately 1700. Denied numbness and tingling and visual disturbances. Patient did c/o slight headache . Dr. Patton notified and orders received for STAT 12 lead EKG and prn IV hydralazine. Patient is also not to have any carbonated beverages or use straws. Patient aware of restrictions on straw use and carbonated beverages. IV hydralazine administered. EKG completed and results reported to Dr. Patton. No further orders given. [facility] Work Phone: 09-27-2023 Nurse Note Patient had elevated BP and c/o pain in mid chest at approximately 1700. Denied numbness and tingling and visual disturbances. Patient did c/o slight headache . Dr. Patton notified and orders received for STAT 12 lead EKG and prn IV hydralazine. Patient is also not to have any carbonated beverages or use straws. Patient aware of restrictions on straw use and carbonated beverages. IV hydralazine administered. EKG completed and results reported to Dr. Patton. No further orders given. documented in this encounter [facility] Work Phone: 09-27-2023 Note Formatting of this n ote might be different from the original. I was the surgical second assist to Dr. Patton for Kenn Rodriguez's procedure on 09/27/23. Procedure: DIFFICULT LAPAROSCOPIC GIANT PARAESOPHAGEAL HERNIA REPAIR WITH TOUPET WRAP, GASTROPEXY, GASTROSCOPY Viri Baker PA-C [facility] Work Phone: 09-27-2023 Note Formatting of this n ote might be different from the original. Called patient's , per Dr Patton's request, to inform him the procedure is still in progress [facility] 09-27-2023 Note Formatting of this n ote might be different from the original. Spoke to patient's on the phone, per Dr Patton's request, to inform him surgery has started. [facility] Work Phone: 09-27-2023 Note Formatting of this n ote is different from the original. DIFFICULT LAPAROSCOPIC GIANT HIATAL HERNIA REPAIR WITH TOUPET WRAP, GASTROPEXY, GASTROSCOPY Operative Note Date: 09/27/2023 OR Location: [facility] Name: Kenn Rodriguez, : 1945, Age: 77 y.o., , Sex: female Diagnosis Pre-op Diagnosis * Paraesophageal hiatal hernia [K44.9] Post-op Diagnosis * Paraesophageal hiatal hernia [K44.9] Procedures DIFFICULT LAPAROSCOPIC GIANT PARAESOPHAGEAL HERNIA REPAIR WITH TOUPET WRAP, GASTROPEXY, GASTROSCOPY [id number] - HI LAPS RPR PARAESPHGL HRNA INCL FUNDPLSTY W/O MESH Surgeons Chance Patton MD Resident/Fellow/Other [employer] Foreign Language Tutor: Surgeon(s) and Role: * Viri Baker PA-C; Julian Procedure Summary Anesthesia: General ASA: II Anesthesia Staff: Anesthesiologist: Real Rebolledo MD [employer] DISPLAY BUILDER: Susan Ramsey APRN-FLORENTIN Estimated Blood Loss: MINIMAL Intra-op Medications: Medication Name Total Dose heparin (porcine) injection 5,000 Units 5,000 Units vancomycin (Vancocin) 1,500 mg in dextrose 5 % in water (D5W) 500 mL IV 1,500 mg Anesthesia Record Intraprocedure I/O Totals Intake Propofol Drip 0.00 mL The total shown is the total volume documented since Anesthesia Start was filed. lactated Ringer's infusion 500.00 mL vancomycin (Vancocin) 1,500 mg in dextrose 5 % in water (D5W) 500 mL IV 530.00 mL Total Intake 1030 mL Output Est. Blood Loss 30 mL Total Output 30 mL Net Net Volume 1000 mL Specimen: No specimens collected Staff: Fisheries Manager: Dina Crawford RN Scrub Person: Ananyajanamaria guadalupe Jeanie Findings: Giant paraesophageal hernia with entire stomach and large amount of omentum herniated into chest; herniated stomach is partially volvulized but no obstruction; dense hernia sac and mediastinum adhesions INDICATIONS FOR PROCEDURE 77 y/o morbidly obese female patient with symptomatic giant paraesophageal hernia. History of large esophageal hernia for over 7 yrs. Worsening epigastric pain, nausea with CT scan at outside hospital showing herniation of entire stomach with non-obstructed volvulized stomach. The patient underwent esophagram and EGD which confirmed the giant paraesophageal hernia with non-obstructed, volvulized stomach. I discussed findings with patient and . The patient was consented for laparoscopic paraesophageal hernia repair with Toupet wrap and EGD. I explained to the patient and the procedure, the risks and complications which include but not limited to IL, stroke, bleeding, infection, esophageal injury, gastric injury, vagus nerve injury, vascular injury, injury to surrounding structures, delayed gastric emptying requiring another surgery, dysphagia requiring dilation, excessive flatulence and gas and recurrence. All questions answered and is willing to proceed. DETAILS OF THE PROCEDURE: After informed consent was obtained, the patient was brought into the operating room and placed in the supine position. The huddle and time-out were performed. General anesthesia was obtained without difficulty. She got 5000 units of subQ heparin and vanco due to PCN allergy. She was placed in the modified lithotomy position on the split legs table. All pressure points were padded and protected. Abdomen was prepped and draped with Chloraprep. A stab incision was made in the left upper quadrant. A Veress needle was placed. Pneumoperitoneum was obtained with CO2 at 15 mmHg. A 5 mm optical trocar was placed in the supra-umbilical region. There was no evidence of iatrogenic injury. 5 mm trocars were placed along the bilateral anterior axillary lines. In the left upper quadrant, a 12 mm trocar was placed. The liver retractor was placed. LUQ greater omental adhesions taken down with the Ligasure. A very large, type 3 paraesophageal hernia with entire herniated stomach and large amount of greater omentum. The patient was placed in reverse Trendelenburg with the left side up. The stomach was partially volvulized and was partially reduced. The short gastric vessels were ligated with the LigaSure starting from the inferior pole of the spleen extending to the left jay of the diaphragm. The dense hernia sac was dissected away from the diaphragm circumferentially. The retroesophageal window was created. The Latisah drain was placed. I proceeded with tedious mediastinal dissection due to dense adhesions lasting for 45 minutes. I continued my dissection allowing for 4-5 cm intraabdominal esophageal length. Both the anterior and posterior vagus nerves were identified and preserved during my dissection. Very large Hernia sac resected and removed from the intraabdominal cavity in a specimen bag. C02 decreased to 10 mmhg. The crura were reapproximated with 0 Ethibond sutures using Autosuture device; three sutures placed posteriorly in a figure of eight fashion ensuring a grasper width space between esophagus and crura. A marking stitch was placed at the fundus which was brought around the esophagus to the right side. A lighted 56-Mongolian bougie was placed. The shoeshine maneuver was performed and there was no tension on the fundus. I proceeded to create a 2 to 3 cm Toupet wrap securing the esophagus to the fundus using three 0-ethibond sutures on either side. The wrap was then anchored to the diaphragm at the 6, 3 and 9'0 clock positions. I then broke scrub and the adult gastroscope was placed in the oral cavity, advanced to the stomach and withdrawn. No mucosal injury. On retroflexion, the wrap was intact. Gastric content and air were then suctioned out. I scrubbed back into the case. Liver retractor removed and bleeding from the liver capsule where the retractor was controlled with Bipolar. Two transfascial gastropexy sutures placed along greater curvature using 2-0 vicryl. The left upper quadrant 12 mm trocar site was reapproximated with #1 Ethibond with a Juan Diego-Sudha in a [id number] fashion. Bilateral subcostal Elise block performed with 0.25% mercaine with epi. The CO2 was evacuated. The skin was reapproximated with 4-0 Monocryl in a subcuticular fashion. LiquiBand was placed. The patient was extubated. I spoke to the patient's about the intraoperative findings. All questions were answered. Chancemickie Patton [facility] Work Phone: 09-26-2023 Nurse Note Patient tolerated procedure well. Appears comfortable with no complaints of pain. VS stable. Arousable prior to transport. Patient transported to [facility] via cart. Report called . Handoff completed [facility] 09-26-2023 Nurse Note Patient tolerated procedure well. Appears comfortable with no complaints of pain. VS stable. Arousable prior to transport. Patient transported to [facility] via cart. Report called . Handoff completed Huddle and Timeout completed together with team. Patient wristband and SHEELA information verified. documented in this encounter [facility] Work Phone: 09-26-2023 Nurse Note Patient tolerated procedure well. Appears comfortable with no complaints of pain. VS stable. Arousable prior to transport. Patient transported to [facility] via cart. Report called . Handoff completed Huddle and Timeout completed together with team. Patient wristband and SHEELA information verified. documented in this encounter [facility] Work Phone: 09-26-2023 Note Formatting of this n ote is different from the original. Reviewed pre-op instructions with patient including NPO after midnight, must have front end loader driver, hospital and check in location, and day of surgery routine. [facility] Work Phone: 09-26-2023 Nurse Note Huddle and Timeout completed together with team. Patient wristband and SHEELA information verified. [facility] Work Phone: 09-26-2023 Hospital Discharge instructions Emelina Kelly RN - 09/26/2023 11:19 AM EST Stay on clear liquid diet today and nothing to eat or drink after midnight; keep hold aspirin Patient Instructions after a Colonoscopy The anesthetics, sedatives or narcotics which were given to you today will be acting in your body for the next 24 hours, so you might feel a little sleepy or groggy. This feeling should slowly wear off. Carefully read and follow the instructions. You received sedation today: - Do not drive or operate any machinery or power tools of any kind. - No alcoholic beverages today, not even beer or wine. - Do not make any important decisions or sign any legal documents. - No over the counter medications that contain alcohol or that may cause drowsiness. While it is common to experience mild to moderate abdominal distention, gas, or belching after your procedure, if any of these symptoms occur following discharge from the GI Lab or within one week of having your procedure, call the [facility] to be advised whether a visit to your nearest Urgent Care or Emergency Department is indicated. Take this paper with you if you go. - If you develop an allergic reaction to the medications that were given during your procedure such as difficulty breathing, rash, hives, severe nausea, vomiting or lightheadedness. - If you experience chest pain, shortness of breath, severe abdominal pain, fevers and chills. -If you develop signs and symptoms of bleeding such as blood in your spit, if your stools turn black, tarry, or bloody - If you have not urinated within 8 hours following your procedure. - If your IV site becomes painful, red, inflamed, or looks infected. If you received a biopsy/polypectomy/sphincterotomy the following instructions apply below: __ Do not use Aspirin containing products, non-steroidal medications or anti-coagulants for one week following your procedure. (Examples of these types of medications are: Advil, Arthrotec, Aleve, Coumadin, Ecotrin, Heparin, Ibuprofen, Indocin, Motrin, Naprosyn, Nuprin, Plavix, Vioxx, and Voltarin, or their generic forms. This list is not all-inclusive. Check with your physician or pharmacist before resuming medications.) __ Eat a soft diet today. Avoid foods that are poorly digested for the next 24 hours. These foods would include: nuts, beans, lettuce, red meats, and fried foods. Start with liquids and advance your diet as tolerated, gradually work up to eating solids. __ Do not have a Barium Study or Enema for one week. Your physician recommends the additional following instructions: -You have a contact number available for emergencies. The signs and symptoms of potential delayed complications were discussed with you. You may return to normal activities tomorrow. -Resume your previous diet. -Continue your present medications. -We are waiting for your pathology results. -Your physician has recommended a repeat colonoscopy (date to be determined after pending pathology results are reviewed) for surveillance based on pathology results. -The findings and recommendations have been discussed with you. -The findings and recommendations were discussed with your family. - Please see Medication Reconciliation Form for new medication/medications prescribed. documented in this encounter [facility] Work Phone: 09-26-2023 Hospital Discharge instructions Emelina Kelly RN - 09/26/2023 11:19 AM EST Stay on clear liquid diet today and nothing to eat or drink after midnight; keep hold aspirin Patient Instructions after a Colonoscopy The anesthetics, sedatives or narcotics which were given to you today will be acting in your body for the next 24 hours, so you might feel a little sleepy or groggy. This feeling should slowly wear off. Carefully read and follow the instructions. You received sedation today: - Do not drive or operate any machinery or power tools of any kind. - No alcoholic beverages today, not even beer or wine. - Do not make any important decisions or sign any legal documents. - No over the counter medications that contain alcohol or that may cause drowsiness. While it is common to experience mild to moderate abdominal distention, gas, or belching after your procedure, if any of these symptoms occur following discharge from the GI Lab or within one week of having your procedure, call the [facility] to be advised whether a visit to your nearest Urgent Care or Emergency Department is indicated. Take this paper with you if you go. - If you develop an allergic reaction to the medications that were given during your procedure such as difficulty breathing, rash, hives, severe nausea, vomiting or lightheadedness. - If you experience chest pain, shortness of breath, severe abdominal pain, fevers and chills. -If you develop signs and symptoms of bleeding such as blood in your spit, if your stools turn black, tarry, or bloody - If you have not urinated within 8 hours following your procedure. - If your IV site becomes painful, red, inflamed, or looks infected. If you received a biopsy/polypectomy/sphincterotomy the following instructions apply below: __ Do not use Aspirin containing products, non-steroidal medications or anti-coagulants for one week following your procedure. (Examples of these types of medications are: Advil, Arthrotec, Aleve, Coumadin, Ecotrin, Heparin, Ibuprofen, Indocin, Motrin, Naprosyn, Nuprin, Plavix, Vioxx, and Voltarin, or their generic forms. This list is not all-inclusive. Check with your physician or pharmacist before resuming medications.) __ Eat a soft diet today. Avoid foods that are poorly digested for the next 24 hours. These foods would include: nuts, beans, lettuce, red meats, and fried foods. Start with liquids and advance your diet as tolerated, gradually work up to eating solids. __ Do not have a Barium Study or Enema for one week. Your physician recommends the additional following instructions: -You have a contact number available for emergencies. The signs and symptoms of potential delayed complications were discussed with you. You may return to normal activities tomorrow. -Resume your previous diet. -Continue your present medications. -We are waiting for your pathology results. -Your physician has recommended a repeat colonoscopy (date to be determined after pending pathology results are reviewed) for surveillance based on pathology results. -The findings and recommendations have been discussed with you. -The findings and recommendations were discussed with your family. - Please see Medication Reconciliation Form for new medication/medications prescribed. documented in this encounter [facility] Work Phone: 09-26-2023 Attending History and physical note H&P reviewed. The patient was examined and there are no changes to the H&P. Source Note - Chance Patton MD - 09/25/2023 10:00 AM EST Subjective Patient ID: Kenn Rodriguez is a 77 y.o. female who presents for Hiatal Hernia. HPI 77-year-old morbidly obese female patient (BMI: 41.3) referred to me for symptomatic paraesophageal hernia. Known history of hiatal hernia for over 7 years and has been taking Protonix 40 mg twice daily. Symptoms have consisted of increasing shortness of breath on exertion, cough, back pain and early satiety. Denies heartburn and acid reflux while taking the Protonix. On September 07 while vacationing in [place], she had excruciating chest and upper back pain prompting her to go to the ER. Also had nausea and was dry heaving but could not vomit. CTA showed very large hiatal hernia with dilated stomach with organoaxial rotation but no obstruction; workup was negative for PE and IL. Patient spent two days in the hospital before being discharged and was told to see a surgeon for repair upon returning to [place]. Since coming back, she still has the epigastric and back pain and early satiety. She is limited her oral intake to avoid another episode. Known history of asymptomatic left carotid stenosis and sees a vascular surgeon in [place], [place]. Denies tobacco use Review of Systems Constitutional: Negative. HENT: Negative. Eyes: Negative. Respiratory: Cough, shortness of breath with exertion Cardiovascular: Negative. Gastrointestinal: Positive for abdominal pain. Epigastric pain Musculoskeletal: Positive for arthralgias. Skin: Negative. Allergic/Immunologic: Negative. Neurological: Negative. Psychiatric/Behavioral: Negative. Objective Physical Exam Constitutional: no acute distress, well appearing and well nourished Eyes: conjunctiva and lids with no erythema, swelling or discharge; EOMI Ears, Nose, Mouth and Throat: external inspection of ears and nose are normal; oropharynx normal with no erythema, edema, exudate or lesions Neck: supple, no mass or adenopathy, full range of motion; thyroid not enlarged and no palpable nodules Pulmonary: normal respiratory effort; clear to auscultation bilaterally, no wheezes or bronchi Cardiovascular: regular rate and rhythm, no murmurs or extra-heart sounds; Abdomen: soft, obese, moderate tenderness in epigastric region; healed lower midline incision Musculoskeletal: digits and nails normal without clubbing or cyanosis; Joints, bones and muscles are normal with normal range of motion; muscle strength/tone is normal Skin: normal without rashes or lesion Neurologic: cranial nerve II-XII intact grossly; normal gait Psychiatric: oriented to person, place and time Assessment/Plan 77-year-old morbidly obese female patient (BMI: 41.3) with 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 Known history of hiatal hernia for over 7 years and has been on Protonix 40 mg twice daily which is controlling her heartburn and acid reflux. On 09/07, admitted with chest and back pain at an outside hospital in [place] while vacationing. I have reviewed the labs, imaging and labs. CTA showed herniation of the entire stomach into the chest., organoaxial rotation of the stomach but without obstruction. Workup for IL and PE negative. Other symptoms consist of early satiety, cough and shortness of breath on exertion. I had extensive discussion with the patient and her . Giving her symptoms and especially the organoaxial rotation, I recommended laparoscopic repair of the paraesophageal hernia with toupet wrap. She is consented for EGD with possible polypectomy, possible biopsy and esophagram. I explained to them the procedure, the risks and complications which include but not limited to bleeding, infection, bowel injury, esophageal injury, vagus nerve injury causing delayed gastric emptying, excessive flatus, gas bloat, bloating. heart attack, stroke and blood clot. We also talked about recurrence giving her obesity; all questions answered and she is willing to proceed. [facility] Work Phone: 09-26-2023 History and physical note H&P reviewed. The patient was examined and there are no changes to the H&P. Source Note - Chance Patton MD - 09/25/2023 10:00 AM EST Subjective Patient ID: Kenn Rodriguez is a 77 y.o. female who presents for Hiatal Hernia. HPI 77-year-old morbidly obese female patient (BMI: 41.3) referred to me for symptomatic paraesophageal hernia. Known history of hiatal hernia for over 7 years and has been taking Protonix 40 mg twice daily. Symptoms have consisted of increasing shortness of breath on exertion, cough, back pain and early satiety. Denies heartburn and acid reflux while taking the Protonix. On September 07 while vacationing in [place], she had excruciating chest and upper back pain prompting her to go to the ER. Also had nausea and was dry heaving but could not vomit. CTA showed very large hiatal hernia with dilated stomach with organoaxial rotation but no obstruction; workup was negative for PE and IL. Patient spent two days in the hospital before being discharged and was told to see a surgeon for repair upon returning to [place]. Since coming back, she still has the epigastric and back pain and early satiety. She is limited her oral intake to avoid another episode. Known history of asymptomatic left carotid stenosis and sees a vascular surgeon in [place], [place]. Denies tobacco use Review of Systems Constitutional: Negative. HENT: Negative. Eyes: Negative. Respiratory: Cough, shortness of breath with exertion Cardiovascular: Negative. Gastrointestinal: Positive for abdominal pain. Epigastric pain Musculoskeletal: Positive for arthralgias. Skin: Negative. Allergic/Immunologic: Negative. Neurological: Negative. Psychiatric/Behavioral: Negative. Objective Physical Exam Constitutional: no acute distress, well appearing and well nourished Eyes: conjunctiva and lids with no erythema, swelling or discharge; EOMI Ears, Nose, Mouth and Throat: external inspection of ears and nose are normal; oropharynx normal with no erythema, edema, exudate or lesions Neck: supple, no mass or adenopathy, full range of motion; thyroid not enlarged and no palpable nodules Pulmonary: normal respiratory effort; clear to auscultation bilaterally, no wheezes or bronchi Cardiovascular: regular rate and rhythm, no murmurs or extra-heart sounds; Abdomen: soft, obese, moderate tenderness in epigastric region; healed lower midline incision Musculoskeletal: digits and nails normal without clubbing or cyanosis; Joints, bones and muscles are normal with normal range of motion; muscle strength/tone is normal Skin: normal without rashes or lesion Neurologic: cranial nerve II-XII intact grossly; normal gait Psychiatric: oriented to person, place and time Assessment/Plan 77-year-old morbidly obese female patient (BMI: 41.3) with 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 Known history of hiatal hernia for over 7 years and has been on Protonix 40 mg twice daily which is controlling her heartburn and acid reflux. On 09/07, admitted with chest and back pain at an outside hospital in [place] while vacationing. I have reviewed the labs, imaging and labs. CTA showed herniation of the entire stomach into the chest., organoaxial rotation of the stomach but without obstruction. Workup for IL and PE negative. Other symptoms consist of early satiety, cough and shortness of breath on exertion. I had extensive discussion with the patient and her . Giving her symptoms and especially the organoaxial rotation, I recommended laparoscopic repair of the paraesophageal hernia with toupet wrap. She is consented for EGD with possible polypectomy, possible biopsy and esophagram. I explained to them the procedure, the risks and complications which include but not limited to bleeding, infection, bowel injury, esophageal injury, vagus nerve injury causing delayed gastric emptying, excessive flatus, gas bloat, bloating. heart attack, stroke and blood clot. We also talked about recurrence giving her obesity; all questions answered and she is willing to proceed. documented in this encounter [facility] Work Phone: 09-26-2023 History and physical note H&P reviewed. The patient was examined and there are no changes to the H&P. Source Note - Chance Patton MD - 09/25/2023 10:00 AM EST Subjective Patient ID: Kenn Rodriguez is a 77 y.o. female who presents for Hiatal Hernia. HPI 77-year-old morbidly obese female patient (BMI: 41.3) referred to me for symptomatic paraesophageal hernia. Known history of hiatal hernia for over 7 years and has been taking Protonix 40 mg twice daily. Symptoms have consisted of increasing shortness of breath on exertion, cough, back pain and early satiety. Denies heartburn and acid reflux while taking the Protonix. On September 07 while vacationing in [place], she had excruciating chest and upper back pain prompting her to go to the ER. Also had nausea and was dry heaving but could not vomit. CTA showed very large hiatal hernia with dilated stomach with organoaxial rotation but no obstruction; workup was negative for PE and IL. Patient spent two days in the hospital before being discharged and was told to see a surgeon for repair upon returning to [place]. Since coming back, she still has the epigastric and back pain and early satiety. She is limited her oral intake to avoid another episode. Known history of asymptomatic left carotid stenosis and sees a vascular surgeon in [place], [place]. Denies tobacco use Review of Systems Constitutional: Negative. HENT: Negative. Eyes: Negative. Respiratory: Cough, shortness of breath with exertion Cardiovascular: Negative. Gastrointestinal: Positive for abdominal pain. Epigastric pain Musculoskeletal: Positive for arthralgias. Skin: Negative. Allergic/Immunologic: Negative. Neurological: Negative. Psychiatric/Behavioral: Negative. Objective Physical Exam Constitutional: no acute distress, well appearing and well nourished Eyes: conjunctiva and lids with no erythema, swelling or discharge; EOMI Ears, Nose, Mouth and Throat: external inspection of ears and nose are normal; oropharynx normal with no erythema, edema, exudate or lesions Neck: supple, no mass or adenopathy, full range of motion; thyroid not enlarged and no palpable nodules Pulmonary: normal respiratory effort; clear to auscultation bilaterally, no wheezes or bronchi Cardiovascular: regular rate and rhythm, no murmurs or extra-heart sounds; Abdomen: soft, obese, moderate tenderness in epigastric region; healed lower midline incision Musculoskeletal: digits and nails normal without clubbing or cyanosis; Joints, bones and muscles are normal with normal range of motion; muscle strength/tone is normal Skin: normal without rashes or lesion Neurologic: cranial nerve II-XII intact grossly; normal gait Psychiatric: oriented to person, place and time Assessment/Plan 77-year-old morbidly obese female patient (BMI: 41.3) with 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 Known history of hiatal hernia for over 7 years and has been on Protonix 40 mg twice daily which is controlling her heartburn and acid reflux. On 09/07, admitted with chest and back pain at an outside hospital in [place] while vacationing. I have reviewed the labs, imaging and labs. CTA showed herniation of the entire stomach into the chest., organoaxial rotation of the stomach but without obstruction. Workup for IL and PE negative. Other symptoms consist of early satiety, cough and shortness of breath on exertion. I had extensive discussion with the patient and her . Giving her symptoms and especially the organoaxial rotation, I recommended laparoscopic repair of the paraesophageal hernia with toupet wrap. She is consented for EGD with possible polypectomy, possible biopsy and esophagram. I explained to them the procedure, the risks and complications which include but not limited to bleeding, infection, bowel injury, esophageal injury, vagus nerve injury causing delayed gastric emptying, excessive flatus, gas bloat, bloating. heart attack, stroke and blood clot. We also talked about recurrence giving her obesity; all questions answered and she is willing to proceed. documented in this encounter [facility] Work Phone: 09-25-2023 History of Present illness Narrative Subjective Patient ID: Kenn Rodriguez is a 77 y.o. female who presents for Hiatal Hernia. HPI 77-year-old morbidly obese female patient (BMI: 41.3) referred to me for symptomatic paraesophageal hernia. Known history of hiatal hernia for over 7 years and has been taking Protonix 40 mg twice daily. Symptoms have consisted of increasing shortness of breath on exertion, cough, back pain and early satiety. Denies heartburn and acid reflux while taking the Protonix. On September 07 while vacationing in [place], she had excruciating chest and upper back pain prompting her to go to the ER. Also had nausea and was dry heaving but could not vomit. CTA showed very large hiatal hernia with dilated stomach with organoaxial rotation but no obstruction; workup was negative for PE and IL. Patient spent two days in the hospital before being discharged and was told to see a surgeon for repair upon returning to [place]. Since coming back, she still has the epigastric and back pain and early satiety. She is limited her oral intake to avoid another episode. Known history of asymptomatic left carotid stenosis and sees a vascular surgeon in [place], [place]. Denies tobacco use Review of Systems Constitutional: Negative. HENT: Negative. Eyes: Negative. Respiratory: Cough, shortness of breath with exertion Cardiovascular: Negative. Gastrointestinal: Positive for abdominal pain. Epigastric pain Musculoskeletal: Positive for arthralgias. Skin: Negative. Allergic/Immunologic: Negative. Neurological: Negative. Psychiatric/Behavioral: Negative. Objective Physical Exam Constitutional: no acute distress, well appearing and well nourished Eyes: conjunctiva and lids with no erythema, swelling or discharge; EOMI Ears, Nose, Mouth and Throat: external inspection of ears and nose are normal; oropharynx normal with no erythema, edema, exudate or lesions Neck: supple, no mass or adenopathy, full range of motion; thyroid not enlarged and no palpable nodules Pulmonary: normal respiratory effort; clear to auscultation bilaterally, no wheezes or bronchi Cardiovascular: regular rate and rhythm, no murmurs or extra-heart sounds; Abdomen: soft, obese, moderate tenderness in epigastric region; healed lower midline incision Musculoskeletal: digits and nails normal without clubbing or cyanosis; Joints, bones and muscles are normal with normal range of motion; muscle strength/tone is normal Skin: normal without rashes or lesion Neurologic: cranial nerve II-XII intact grossly; normal gait Psychiatric: oriented to person, place and time Assessment/Plan 77-year-old morbidly obese female patient (BMI: 41.3) with 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 Known history of hiatal hernia for over 7 years and has been on Protonix 40 mg twice daily which is controlling her heartburn and acid reflux. On 09/07, admitted with chest and back pain at an outside hospital in [place] while vacationing. I have reviewed the labs, imaging and labs. CTA showed herniation of the entire stomach into the chest., organoaxial rotation of the stomach but without obstruction. Workup for IL and PE negative. Other symptoms consist of early satiety, cough and shortness of breath on exertion. I had extensive discussion with the patient and her . Giving her symptoms and especially the organoaxial rotation, I recommended laparoscopic repair of the paraesophageal hernia with toupet wrap. She is consented for EGD with possible polypectomy, possible biopsy and esophagram. I explained to them the procedure, the risks and complications which include but not limited to bleeding, infection, bowel injury, esophageal injury, vagus nerve injury causing delayed gastric emptying, excessive flatus, gas bloat, bloating. heart attack, stroke and blood clot. We also talked about recurrence giving her obesity; all questions answered and she is willing to proceed. documented in this encounter [facility] Work Phone: 09-25-2023 Instructions Chance Patton MD - 09/25/2023 10:00 AM EST You will be scheduled for EGD, esophagram and hiatal hernia surgery documented in this encounter [facility] Work Phone: 07-11-2023 Note PROCEDURE: CTA NECK W WO CONTRAST CLINICAL INFORMATION: Carotid stenosis, bilateral. COMPARISON: CTA neck dated June.. TECHNIQUE: 1 mm axial images were obtained through the neck after the fast bolus administration of contrast. A noncontrast localizer was obtained. 3-D reconstructions were performed on a dedicated 3-D workstation. These include multiplanar MPR images, multiplanar MIP images and centerline reconstructions. Isovue intravenous contrast was given. All carotid artery measurements are performed utilizing Nascet criteria. All CT scans at this facility use dose modulation, iterative reconstruction, and/or weight-based dosing when appropriate to reduce radiation dose to as low as reasonably achievable. FINDINGS: Aortic arch and branches: There is atherosclerotic calcification in the aortic arch. There is normal origin of the brachiocephalic, left common carotid and left subclavian arteries. Right common carotid artery/ICA: There is calcified plaque involving the right carotid bifurcation and origin of the right internal carotid artery. There is approximately 60% stenosis at the origin of the right internal carotid artery. There is no significant hemodynamic stenosis in the right common carotid artery. Left common carotid artery/ICA: There is calcified plaque involving the left carotid bifurcation and origin of the left internal carotid artery. There is approximately 70% stenosis at the origin of the left internal carotid artery, worse than on previous study dated 07/03/2022. There is no significant hemodynamic stenosis in the left common carotid artery. Vertebral arteries: There is antegrade flow in the right and left vertebral arteries. Intracranial cerebral circulation: Grossly unremarkable. Axial source data: Unremarkable. IMPRESSION: 1. 70% stenosis at the origin of the left internal carotid artery, slightly worse than on previous study dated 07/03/2022. No significant hemodynamic stenosis in the left common carotid artery. 2. 60% stenosis at the origin of the right internal carotid artery. No significant hemodynamic stenosis in the right common carotid artery. 3. There is antegrade flow in the right and left vertebral arteries. This report has been created using voice recognition software. It may contain minor errors which are inherent in voice recognition technology. Final report electronically signed by DR CHEL CAICEDO on 07/11/2023 9:57 AM Interpreted by: Chel Caicedo MD Signed by: Chel Caicedo MD 07/11/23 Final result [facility] 09-06-2022 Note PROCEDURE: XR SHOULD ER RIGHT (MIN 2 VIEWS) CLINICAL INFORMATION: Right shoulder pain TECHNIQUE: 3 views of the right shoulder COMPARISON: None FINDINGS: There is no fracture or dislocation. Joint space narrowing is present at the acromioclavicular joint. Soft tissues are unremarkable. [facility] 08-16-2022 History of Present illness Narrative 1043 Patient to phase 2 from surgery. Report from ADAMS Malcolm. Patient drowsy, opens eyes to name. Vitals assessed, continuous pulse ox placed until patient is more awake. Will monitor. 1050 Patient opens eyes spontaneously. Vitals remain stable. Snack and drink given per patient preference.Injection sites clean, dry, intact. 1105 IV taken out and dressing applied with no complications. Patient getting dressed. 1112 Patient walked to discharge doors in stable condition. Discharged with all belongings. documented in this encounter [email or web address] Phone: 08-15-2022 Hospital Discharge instructions Siva Duval MD - 08/15/2022 7:47 AM EDT ANESTHESIA INSTRUCTIONS FOLLOWING SURGERY Since you may experience some intermittent light-headedness for the next several hours, we suggest you plan on bed rest or quiet relaxation this evening. You must have a friend or relative stay with you tonight. Because of the sedation you have received, it is recommended that you do not drive a motor vehicle, operate any kind of machinery, or sign any contractual agreement for 24 hours following the procedure. You should not take alcoholic beverages tonight and only take sleeping medication that has been specifically prescribed for you by your physician. Call office [phone] if you have: Temperature greater than 100.4 Persistent nausea and vomiting Severe uncontrolled pain Redness, tenderness, or signs of infection (pain, swelling, redness, odor or green/yellow discharge around the site) Difficulty breathing, headache or visual disturbances Hives Persistent dizziness or light-headedness Extreme fatigue Any other questions or concerns you may have after discharge In an emergency, call 911 or go to an Emergency Department at a nearby hospital It is important to bring a complete, current list of your medications to any medical appointments or hospitalizations. REMINDER: Carry a list of your medications and allergies with you at all times Call your pharmacy at least 1 week in advance to refill prescriptions Diet: Resume your usual diet. Good nutrition promotes healing. Increase fluid intake. Activity: Rest for 24 hrs then resume normal activity. HOME MEDICATIONS: If on blood thinning products such as; Aspirin, NSAIDS, Plavix, Coumadin, Xarelto, Fish Oil, Multi-Vitamins or Herbal Supplements restart in 24 hours Restart Metformin in 48 hours if you had procedure with dye. Restart Metformin in 24 hours if no dye used during procedure. Education Materials Received: {yes/no:691659} Belongings Returned: {yes/no:[id number]} I understand and acknowledge receipt of the above instructions. Patient or Guardian Signature Date/Time Physician's or R.N.'s Signature Date/Time The discharge instructions have been reviewed with the patient and/or Guardian. Patient and/or Guardian signed and retained a printed copy. Call office [phone] if you have: Temperature greater than 100.4 Persistent nausea and vomiting Severe uncontrolled pain Redness, tenderness, or signs of infection (pain, swelling, redness, odor or green/yellow discharge around the site) Difficulty breathing, headache or visual disturbances Hives Persistent dizziness or light-headedness Extreme fatigue Any other questions or concerns you may have after discharge In an emergency, call 911 or go to an Emergency Department at a nearby hospital It is important to bring a complete, current list of your medications to any medical appointments or hospitalizations. REMINDER: Carry a list of your medications and allergies with you at all times Call your pharmacy at least 1 week in advance to refill prescriptions Diet: Resume your usual diet. Good nutrition promotes healing. Increase fluid intake. Activity: Rest for 24 hrs then resume normal activity. Education Materials Received: {yes/no:240900} Belongings Returned: {yes/no:[id number]} I understand and acknowledge receipt of the above instructions. Patient or Guardian Signature Date/Time Physician's or R.N.'s Signature Date/Time The discharge instructions have been reviewed with the patient and/or Guardian. Patient and/or Guardian signed and retained a printed copy. documented in this encounter [email or web address] Phone: 07-03-2022 Note PROCEDURE: MRI BRAIN WO CONTRAST CLINICAL INFORMATION Dizziness. Dizziness for one day. COMPARISON: Head CT 07/03/2022. TECHNIQUE: Multiplanar and multiple spin echo MRI images were obtained of the brain without contrast. FINDINGS: The diffusion-weighted images are normal. The brain volume is mildly reduced. There is a mild amount of signal hyperintensity on the FLAIR and T2-weighted sequences in the white matter of the brain. This is consistent with mild severity chronic small vessel ischemic changes. There are no intra-or extra-axial collections. There is no hydrocephalus, midline shift or mass effect. There is no susceptibility artifact in the brain. The major intracranial vascular flow voids are present. The midline craniocervical junction structures are normal. The pituitary gland and brainstem are normal. There is a small area of mucosal thickening along the floor the left maxillary sinus. [facility] 05-30-2022 History of Present illness Narrative 1251: Patient arrives to recovery room via cart. Spontaneous respirations, vss, report received from surgical oncologist. Patient denies pain, numbness, tingling , nausea. Injection site clean, dry, intact. HOB elevated. IV capped. Snack and drink given. Call light within reach. brought back to bedside. 1305: patient getting dressed with assistance from . 1315: patient ambulated to discharge lobby in stable condition. Patient discharged home with . documented in this encounter [facility] Phone: 05-23-2022 Hospital Discharge instructions Siva Duval MD - 05/23/2022 9:19 AM EDT ANESTHESIA INSTRUCTIONS FOLLOWING SURGERY Since you may experience some intermittent light-headedness for the next several hours, we suggest you plan on bed rest or quiet relaxation this evening. You must have a friend or relative stay with you tonight. Because of the sedation you have received, it is recommended that you do not drive a motor vehicle, operate any kind of machinery, or sign any contractual agreement for 24 hours following the procedure. You should not take alcoholic beverages tonight and only take sleeping medication that has been specifically prescribed for you by your physician. Call office [phone] if you have: Temperature greater than 100.4 Persistent nausea and vomiting Severe uncontrolled pain Redness, tenderness, or signs of infection (pain, swelling, redness, odor or green/yellow discharge around the site) Difficulty breathing, headache or visual disturbances Hives Persistent dizziness or light-headedness Extreme fatigue Any other questions or concerns you may have after discharge In an emergency, call 911 or go to an Emergency Department at a nearby hospital It is important to bring a complete, current list of your medications to any medical appointments or hospitalizations. REMINDER: Carry a list of your medications and allergies with you at all times Call your pharmacy at least 1 week in advance to refill prescriptions Diet: Resume your usual diet. Good nutrition promotes healing. Increase fluid intake. Activity: Rest for 24 hrs then resume normal activity. HOME MEDICATIONS: If on blood thinning products such as; Aspirin, NSAIDS, Plavix, Coumadin, Xarelto, Fish Oil, Multi-Vitamins or Herbal Supplements restart in 24 hours Restart Metformin in 48 hours if you had procedure with dye. Restart Metformin in 24 hours if no dye used during procedure. Education Materials Received: {yes/no:909688} Belongings Returned: {yes/no:[id number]} I understand and acknowledge receipt of the above instructions. Patient or Guardian Signature Date/Time Physician's or R.N.'s Signature Date/Time The discharge instructions have been reviewed with the patient and/or Guardian. Patient and/or Guardian signed and retained a printed copy. Call office [phone] if you have: Temperature greater than 100.4 Persistent nausea and vomiting Severe uncontrolled pain Redness, tenderness, or signs of infection (pain, swelling, redness, odor or green/yellow discharge around the site) Difficulty breathing, headache or visual disturbances Hives Persistent dizziness or light-headedness Extreme fatigue Any other questions or concerns you may have after discharge In an emergency, call 911 or go to an Emergency Department at a nearby hospital It is important to bring a complete, current list of your medications to any medical appointments or hospitalizations. REMINDER: Carry a list of your medications and allergies with you at all times Call your pharmacy at least 1 week in advance to refill prescriptions Diet: Resume your usual diet. Good nutrition promotes healing. Increase fluid intake. Activity: Rest for 24 hrs then resume normal activity. Education Materials Received: {yes/no:260213} Belongings Returned: {yes/no:319501} I understand and acknowledge receipt of the above instructions. Patient or Guardian Signature Date/Time Physician's or R.N.'s Signature Date/Time The discharge instructions have been reviewed with the patient and/or Guardian. Patient and/or Guardian signed and retained a printed copy. documented in this encounter [employer] Phone: 04-14-2022 History of Present illness Narrative 1132 Received in phase 2. Drowsy arouses to name. Sat 87 O2 on at 4L/NC and sat increased to 95. BP 84/52 lowered head of bed and BP up to 98/52. Denies c/o pain, nausea, numbness or tingling. 1146 Eating muffin and drinking OJ. More awake 1158 Drinking bottle of water. Denies c/o nausea, pain, numbness, or tingling 1213 BP 113/63 Patient up and getting dressed 1215 Discharged home with spouse patient in stable condition, patient ambulated to car without difficulty. Discharge instructions reviewed with patient. All questions were addressed and answered. Patient verbalized understanding of discharge plan. documented in this encounter [facility] [email or web address] Phone: 04-13-2022 Hospital Discharge instructions Siva Duval MD - 04/13/2022 Call office [phone] if you have: Temperature greater than 100.4 Persistent nausea and vomiting Severe uncontrolled pain Redness, tenderness, or signs of infection (pain, swelling, redness, odor or green/yellow discharge around the site) Difficulty breathing, headache or visual disturbances Hives Persistent dizziness or light-headedness Extreme fatigue Any other questions or concerns you may have after discharge In an emergency, call 911 or go to an Emergency Department at a nearby hospital It is important to bring a complete, current list of your medications to any medical appointments or hospitalizations. REMINDER: Carry a list of your medications and allergies with you at all times Call your pharmacy at least 1 week in advance to refill prescriptions Diet: Resume your usual diet. Good nutrition promotes healing. Increase fluid intake. Activity: Rest for 24 hrs then resume normal activity. Education Materials Received: {yes/no:200816} Belongings Returned: {yes/no:640247} I understand and acknowledge receipt of the above instructions. Patient or Guardian Signature Date/Time Physician's or R.N.'s Signature Date/Time The discharge instructions have been reviewed with the patient and/or Guardian. Patient and/or Guardian signed and retained a printed copy. ANESTHESIA INSTRUCTIONS FOLLOWING SURGERY Since you may experience some intermittent light-headedness for the next several hours, we suggest you plan on bed rest or quiet relaxation this evening. You must have a friend or relative stay with you tonight. Because of the sedation you have received, it is recommended that you do not drive a motor vehicle, operate any kind of machinery, or sign any contractual agreement for 24 hours following the procedure. You should not take alcoholic beverages tonight and only take sleeping medication that has been specifically prescribed for you by your physician. Call office [phone] if you have: Temperature greater than 100.4 Persistent nausea and vomiting Severe uncontrolled pain Redness, tenderness, or signs of infection (pain, swelling, redness, odor or green/yellow discharge around the site) Difficulty breathing, headache or visual disturbances Hives Persistent dizziness or light-headedness Extreme fatigue Any other questions or concerns you may have after discharge In an emergency, call 911 or go to an Emergency Department at a nearby hospital It is important to bring a complete, current list of your medications to any medical appointments or hospitalizations. REMINDER: Carry a list of your medications and allergies with you at all times Call your pharmacy at least 1 week in advance to refill prescriptions Diet: Resume your usual diet. Good nutrition promotes healing. Increase fluid intake. Activity: Rest for 24 hrs then resume normal activity. HOME MEDICATIONS: If on blood thinning products such as; Aspirin, NSAIDS, Plavix, Coumadin, Xarelto, Fish Oil, Multi-Vitamins or Herbal Supplements restart in 24 hours Restart Metformin in 48 hours if you had procedure with dye. Restart Metformin in 24 hours if no dye used during procedure. I understand and acknowledge receipt of the above instructions. The discharge instructions have been reviewed with the patient and/or Guardian. Patient and/or Guardian signed and retained a printed copy. documented in this encounter MARIN NIRMALA [employer] Phone: 12-20-2021 History of Present illness Narrative 0822- Patient arrived to phase II via cart. Spontaneous respiraitons even and unlabored. Placed on monitor--VSS. BP low--will monitor. Report received from Kierra LAMAS. 0823- Assessment completed. Patient is drowsy, but responds to name and follows commands. IV capped off-- no complications. Patient denies pain--will monitor. Injection sites clean and dry. 0825- Snack and drink given to patient. Family in car. 0835- All belongings in room. 0840- BP 116/62. IV removed-- no complications. Bandage applied. 0849- Patient discharged in stable condition with all belongings via wheelchair. documented in this encounter [employer] Phone: 12-17-2021 Hospital Discharge instructions Siva Duval MD - 12/17/2021 Call office [phone] if you have: Temperature greater than 100.4 Persistent nausea and vomiting Severe uncontrolled pain Redness, tenderness, or signs of infection (pain, swelling, redness, odor or green/yellow discharge around the site) Difficulty breathing, headache or visual disturbances Hives Persistent dizziness or light-headedness Extreme fatigue Any other questions or concerns you may have after discharge In an emergency, call 911 or go to an Emergency Department at a nearby hospital It is important to bring a complete, current list of your medications to any medical appointments or hospitalizations. REMINDER: Carry a list of your medications and allergies with you at all times Call your pharmacy at least 1 week in advance to refill prescriptions Diet: Resume your usual diet. Good nutrition promotes healing. Increase fluid intake. Activity: Rest for 24 hrs then resume normal activity. Education Materials Received: {yes/no:268588} Belongings Returned: {yes/no:431501} I understand and acknowledge receipt of the above instructions. Patient or Guardian Signature Date/Time Physician's or R.N.'s Signature Date/Time The discharge instructions have been reviewed with the patient and/or Guardian. Patient and/or Guardian signed and retained a printed copy. ANESTHESIA INSTRUCTIONS FOLLOWING SURGERY Since you may experience some intermittent light-headedness for the next several hours, we suggest you plan on bed rest or quiet relaxation this evening. You must have a friend or relative stay with you tonight. Because of the sedation you have received, it is recommended that you do not drive a motor vehicle, operate any kind of machinery, or sign any contractual agreement for 24 hours following the procedure. You should not take alcoholic beverages tonight and only take sleeping medication that has been specifically prescribed for you by your physician. Call office [phone] if you have: Temperature greater than 100.4 Persistent nausea and vomiting Severe uncontrolled pain Redness, tenderness, or signs of infection (pain, swelling, redness, odor or green/yellow discharge around the site) Difficulty breathing, headache or visual disturbances Hives Persistent dizziness or light-headedness Extreme fatigue Any other questions or concerns you may have after discharge In an emergency, call 911 or go to an Emergency Department at a nearby hospital It is important to bring a complete, current list of your medications to any medical appointments or hospitalizations. REMINDER: Carry a list of your medications and allergies with you at all times Call your pharmacy at least 1 week in advance to refill prescriptions Diet: Resume your usual diet. Good nutrition promotes healing. Increase fluid intake. Activity: Rest for 24 hrs then resume normal activity. HOME MEDICATIONS: If on blood thinning products such as; Aspirin, NSAIDS, Plavix, Coumadin, Xarelto, Fish Oil, Multi-Vitamins or Herbal Supplements restart in 24 hours Restart Metformin in 48 hours if you had procedure with dye. Restart Metformin in 24 hours if no dye used during procedure. Education Materials Received: {yes/no:364616} Belongings Returned: {yes/no:814894} I understand and acknowledge receipt of the above instructions. Patient or Guardian Signature Date/Time Physician's or R.N.'s Signature Date/Time The discharge instructions have been reviewed with the patient and/or Guardian. Patient and/or Guardian signed and retained a printed copy. documented in this encounter [employer] Phone: 10-11-2021 History of Present illness Narrative 1338: Patient to phase 2 recovery room via cart. Patient arouses easily to name. Report received from surgical oncologistKylah. Patient's vitals obtained, see charting. 1340: Patient is denying pain and nausea at this time. IV is INT'd in her hand. 1343: Offered drink and snack provided to the patient. Bed is in the lowest position and call light is within reach. 1352: IV removed at this time- no complications and dressing applied. Patient stating she understood her discharge instructions given in pre op. 1354: Patient's instructed to pull the car up. 1358: Patient ambulated to the car and discharged home in stable condition with her . Discharge instructions reviewed. Verbalized understanding. documented in this encounter [employer] Phone: 10-08-2021 Hospital Discharge instructions Siva Duval MD - 10/08/2021 ANESTHESIA INSTRUCTIONS FOLLOWING SURGERY Since you may experience some intermittent light-headedness for the next several hours, we suggest you plan on bed rest or quiet relaxation this evening. You must have a friend or relative stay with you tonight. Because of the sedation you have received, it is recommended that you do not drive a motor vehicle, operate any kind of machinery, or sign any contractual agreement for 24 hours following the procedure. You should not take alcoholic beverages tonight and only take sleeping medication that has been specifically prescribed for you by your physician. Call office [phone] if you have: Temperature greater than 100.4 Persistent nausea and vomiting Severe uncontrolled pain Redness, tenderness, or signs of infection (pain, swelling, redness, odor or green/yellow discharge around the site) Difficulty breathing, headache or visual disturbances Hives Persistent dizziness or light-headedness Extreme fatigue Any other questions or concerns you may have after discharge In an emergency, call 911 or go to an Emergency Department at a nearby hospital It is important to bring a complete, current list of your medications to any medical appointments or hospitalizations. REMINDER: Carry a list of your medications and allergies with you at all times Call your pharmacy at least 1 week in advance to refill prescriptions Diet: Resume your usual diet. Good nutrition promotes healing. Increase fluid intake. Activity: Rest for 24 hrs then resume normal activity. HOME MEDICATIONS: If on blood thinning products such as; Aspirin, NSAIDS, Plavix, Coumadin, Xarelto, Fish Oil, Multi-Vitamins or Herbal Supplements restart in 24 hours Restart Metformin in 48 hours if you had procedure with dye. Restart Metformin in 24 hours if no dye used during procedure. Education Materials Received: {yes/no:442869} Belongings Returned: {yes/no:831206} I understand and acknowledge receipt of the above instructions. Patient or Guardian Signature Date/Time Physician's or R.N.'s Signature Date/Time The discharge instructions have been reviewed with the patient and/or Guardian. Patient and/or Guardian signed and retained a printed copy. documented in this encounter [employer] Phone: 06-07-2021 History of Present illness Narrative 1419 Patient to Phase 2 from surgery, report received from Kierra LAMAS. Patient drowsy, opens eyes to name. Respirations easy and regular on room air. VSS. All belongings at bedside. This RN remains at bedside. Injections sites clean and intact, no drainage noted. 1425 Patient alert and oriented, provided with snack and drink. Call light in reach. Patient states she has no questions regarding her discharge instructions. , Mikel, out in waiting room. 1435 Patient states that she does not have any pain or nausea. States she feels ready for discharge. 1440 IV taken out, no complications. Pressure held x2 minutes as patient states she bruises easily. Dressing applied. 1444 Patient dressed, walked out to car with with this RN. Patient denies any questions regarding AVS or discharge intructions. 1300 Discharge instructions given, understanding voiced, questions answered. documented in this encounter [employer] Phone: 06-04-2021 Hospital Discharge instructions Siva Duval MD - 06/04/2021 Call office [phone] if you have: Temperature greater than 100.4 Persistent nausea and vomiting Severe uncontrolled pain Redness, tenderness, or signs of infection (pain, swelling, redness, odor or green/yellow discharge around the site) Difficulty breathing, headache or visual disturbances Hives Persistent dizziness or light-headedness Extreme fatigue Any other questions or concerns you may have after discharge In an emergency, call 911 or go to an Emergency Department at a nearby hospital It is important to bring a complete, current list of your medications to any medical appointments or hospitalizations. REMINDER: Carry a list of your medications and allergies with you at all times Call your pharmacy at least 1 week in advance to refill prescriptions Diet: Resume your usual diet. Good nutrition promotes healing. Increase fluid intake. Activity: Rest for 24 hrs then resume normal activity. Education Materials Received: {yes/no:585651} Belongings Returned: {yes/no:195821} I understand and acknowledge receipt of the above instructions. Patient or Guardian Signature Date/Time Physician's or R.N.'s Signature Date/Time The discharge instructions have been reviewed with the patient and/or Guardian. Patient and/or Guardian signed and retained a printed copy. ANESTHESIA INSTRUCTIONS FOLLOWING SURGERY Since you may experience some intermittent light-headedness for the next several hours, we suggest you plan on bed rest or quiet relaxation this evening. You must have a friend or relative stay with you tonight. Because of the sedation you have received, it is recommended that you do not drive a motor vehicle, operate any kind of machinery, or sign any contractual agreement for 24 hours following the procedure. You should not take alcoholic beverages tonight and only take sleeping medication that has been specifically prescribed for you by your physician. Call office [phone] if you have: Temperature greater than 100.4 Persistent nausea and vomiting Severe uncontrolled pain Redness, tenderness, or signs of infection (pain, swelling, redness, odor or green/yellow discharge around the site) Difficulty breathing, headache or visual disturbances Hives Persistent dizziness or light-headedness Extreme fatigue Any other questions or concerns you may have after discharge In an emergency, call 911 or go to an Emergency Department at a nearby hospital It is important to bring a complete, current list of your medications to any medical appointments or hospitalizations. REMINDER: Carry a list of your medications and allergies with you at all times Call your pharmacy at least 1 week in advance to refill prescriptions Diet: Resume your usual diet. Good nutrition promotes healing. Increase fluid intake. Activity: Rest for 24 hrs then resume normal activity. Education Materials Received: {yes/no:164992} Belongings Returned: {yes/no:317110} HOME MEDICATIONS: If on blood thinning products such as; Aspirin, NSAIDS, Plavix, Coumadin, Xarelto, Fish Oil, Multi-Vitamins or Herbal Supplements restart in 24 hours Restart Metformin in 48 hours if you had procedure with dye. Restart Metformin in 24 hours if no dye used during procedure. The discharge instructions have been reviewed with the patient and/or Guardian. Patient and/or Guardian signed and retained a printed copy. documented in this encounter [employer] Phone: 11-26-2019 History of Present illness Narrative 1406 To phase 2 recovery via cart. Report received from Karely LAMAS OR. Pt is sleepy but does arouse to name. Skin is warm and dry. Respirations are easy & non-labored. 1410 Pt is more awake. Injection site has small amount red drainage noted-folded gauze pad applied to site and secured with tape. Pedal push/pull and bilateral leg raise are equal and strong. 1415 to bedside. Pt given juice and muffin per request. Call light in reach. Updated on plan of care. Voiced understanding. 1435 Pt awake and A & O x 3. Skin is warm and dry. Respirations are easy & non-labored. Denies pain. Injection site dressing is clean, dry and intact. Removed to exam site-no bleeding noted. Reapplied new gauze pad to site and secured with tape. Reviewed discharge instructions with patient and spouse. Voiced understanding. IV removed. Catheter intact and bandaid applied. 1440 Dressing at bedside with spouse assistance. 1445 To private vehicle x 1 assist via wheelchair. documented in this encounter [employer] Phone: 11-26-2019 Hospital Discharge instructions Jayla Brock RN - 11/26/2019 ANESTHESIA INSTRUCTIONS FOLLOWING SURGERY Since you may experience some intermittent light-headedness for the next several hours, we suggest you plan on bed rest or quiet relaxation this evening. You must have a friend or relative stay with you tonight. Because of the sedation you have received, it is recommended that you do not drive a motor vehicle, operate any kind of machinery, or sign any contractual agreement for 24 hours following the procedure. You should not take alcoholic beverages tonight and only take sleeping medication that has been specifically prescribed for you by your physician. Call office [phone] if you have: Temperature greater than 100.4 Persistent nausea and vomiting Severe uncontrolled pain Redness, tenderness, or signs of infection (pain, swelling, redness, odor or green/yellow discharge around the site) Difficulty breathing, headache or visual disturbances Hives Persistent dizziness or light-headedness Extreme fatigue Any other questions or concerns you may have after discharge In an emergency, call 911 or go to an Emergency Department at a nearby hospital It is important to bring a complete, current list of your medications to any medical appointments or hospitalizations. REMINDER: Carry a list of your medications and allergies with you at all times Call your pharmacy at least 1 week in advance to refill prescriptions Diet: Resume your usual diet. Good nutrition promotes healing. Increase fluid intake. Activity: Rest for 24 hrs then resume normal activity. HOME MEDICATIONS: If on blood thinning products such as; Aspirin, NSAIDS, Plavix, Coumadin, Xarelto, Fish Oil, Multi-Vitamins or Herbal Supplements restart in 24 hours Restart Metformin in 48 hours if you had procedure with dye. Restart Metformin in 24 hours if no dye used during procedure. Education Materials Received: {yes/no:790375} Belongings Returned: {yes/no:895705} I understand and acknowledge receipt of the above instructions. Patient or Guardian Signature Date/Time Physician's or R.N.'s Signature Date/Time The discharge instructions have been reviewed with the patient and/or Guardian. Patient and/or Guardian signed and retained a printed copy. 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 documented in this encounter [facility] Work Phone: evaluation noteNo assessment information available[facility] Work Phone: Evaluation note* Diagnosis Acute pain of right shoulder documented in this encounter [facility] Work Phone: evaluation note* Diagnosis Paraesophageal hiatal hernia- Primary Paraesophageal hiatal hernia- Primary documented in this encounter [facility] Work Phone: Evaluation note* Diagnosis Paraesophageal hiatal hernia Paraesophageal hiatal hernia documented in this encounter [facility] Work Phone: Evaluation note* Diagnosis Paraesophageal hiatal hernia- Primary documented in this encounter [facility] Work Phone: Evaluation note* Diagnosis Paraesophageal hiatal hernia- Primary Hyperlipidemia Other and unspecified hyperlipidemia HTN (hypertension) Unspecified essential hypertension documented in this encounter [facility] Work Phone: Evaluation note* Diagnosis History of repair of hiatal hernia- Primary documented in this encounter [facility] Work Phone: Evaluation note* Diagnosis History of repair of hiatal hernia- Primary documented in this encounter [facility] Work Phone: Reason for visit Narrative* Auth/Cert Specialty Diagnoses / Procedures Referred By Contac t Referred To Contact Diagnoses Sacrococcygeal disorders, not elsewhere classified Bilateral sacroilitis Procedures HI INJECT RX OTHER PERIPH NERVE Left SI RFA Siva Duval MD [address] [address] [employer] [id number] [place] [id number] Referral ID Status Reason Start Date Expiration Date Visits Re quested Visits Authorized [id number] 1 1 [employer] Phone: reason for visit Narrative* Auth/Cert Specialty Diagnoses / Procedures Referred By Contac t Referred To Contact Diagnoses Spondylosis without myelopathy or radiculopathy, thoracic region BILATERAL SACROILIITIS Procedures HI DSTR NROLYTC AGNT PARVERTEB FCT SNGL CRVCL/THORA HI DSTR NROLYTC AGNT PARVERTEB FCT ADDL CRVCL/THORA Bilateral T-facet RFA @ T4-5 and T5-6 Siva Duval MD [address] [address] [employer] [id number] [place] [id number] Referral ID Status Reason Start Date Expiration Date Visits Re quested Visits Authorized [id number] 1 1 [employer] Phone: reason for visit Narrative* Auth/Cert Specialty Diagnoses / Procedures Referred By Contac t Referred To Contact Diagnoses Sacrococcygeal disorders, not elsewhere classified Bilateral sacroilitis Procedures HI INJECT RX OTHER PERIPH NERVE Right SI RFA Siva Duval MD [address] [address] [employer] [facility] [id number] [place] [id number] Referral ID Status Reason Start Date Expiration Date Visits Re quested Visits Authorized [id number] 1 1 [employer] Phone: reason for visit Narrative* Auth/Cert Specialty Diagnoses / Procedures Referred By Contac t Referred To Contact Diagnoses Bilateral sacroiliitis (HCC) Bilateral sacroilitis Procedures HI INJECT RX OTHER PERIPH NERVE Left sacroiliac joint injection Radiofrequency ablations Siva Duval MD [address] [place] [address] [facility] [employer] [address] [place] [address] Referral ID Status Reason Start Date Expiration Date Visits Re quested Visits Authorized [id number] 1 1 [employer] Work Phone: Discharge Instructions * Instructions* Jayla Brock RN - 06/24/2019 ANESTHESIA INSTRUCTIONS FOLLOWING SURGERY Since you may experience some intermittent light-headedness for the next several hours, we suggest you plan on bed rest or quiet relaxation this evening. You must have a friend or relative stay with you tonight. Because of the sedation you have received, it is recommended that you do not drive a motor vehicle,operate any kind of machinery, or sign any contractual agreement for 24 hours following the procedure. You should not take alcoholic beverages tonight and only take sleeping medication that has been specifically prescribed for you by your physician. Call office [phone] if you have: Temperature greater than 100.4 Persistent nausea and vomiting Severe uncontrolled pain Redness, tenderness, or signs of infection (pain, swelling, redness, odor or green/yellow dischargearound the site) Difficulty breathing, headache or visual disturbances Hives Persistent dizziness or light-headedness Extreme fatigue Any other questions or concerns you may have after discharge In an emergency, call 911 or go to an Emergency Department at a nearby hospital It is important to bring a complete, current list of your medications to any medical appointments or hospitalizations. REMINDER: Carry a list of your medications and allergies with you at all times Call your pharmacy at least 1 week in advance to refill prescriptions Diet: Resume your usual diet. Good nutrition promotes healing. Increase fluid intake. Activity: Rest for 24 hrs then resume normal activity. HOME MEDICATIONS: If on blood thinning products such as; Aspirin, NSAIDS, Plavix, Coumadin, Xarelto, Fish Oil, Multi-Vitamins or Herbal Supplements restart in 24 hours Restart Metformin in 48 hours if you had procedure with dye. Restart Metformin in 24 hours if no dye used during procedure. Education Materials Received: {yes/no:342311} Belongings Returned: {yes/no:697527} I understand and acknowledge receipt of the above instructions. Patient or Guardian Signature Date/Time Physician's or R.N.'s Signature Date/Time The discharge instructions have been reviewed with the patient and/or Guardian. Patient and/or Guardian signed and retained a printed copy. documented in this encounter* Instructions* Siva Duval MD - 07/17/2020 Call office [phone] if you have: Temperature greater than 100.4 Persistent nausea and vomiting Severe uncontrolled pain Redness, tenderness, or signs of infection (pain, swelling, redness, odor or green/yellow dischargearound the site) Difficulty breathing, headache or visual disturbances Hives Persistent dizziness or light-headedness Extreme fatigue Any other questions or concerns you may have after discharge In an emergency, call 911 or go to an Emergency Department at a nearby hospital It is important to bring a complete, current list of your medications to any medical appointments or hospitalizations. REMINDER: Carry a list of your medications and allergies with you at all times Call your pharmacy at least 1 week in advance to refill prescriptions Diet: Resume your usual diet. Good nutrition promotes healing. Increase fluid intake. Activity: Rest for 24 hrs then resume normal activity. Education Materials Received: {yes/no:948807} Belongings Returned: {yes/no:116599} I understand and acknowledge receipt of the above instructions. Patient or Guardian Signature Date/Time Physician's or R.N.'s Signature Date/Time The discharge instructions have been reviewed with the patient and/or Guardian. Patient and/or Guardian signed and retained a printed copy. ANESTHESIA INSTRUCTIONS FOLLOWING SURGERY Since you may experience some intermittent light-headedness for the next several hours, we suggest you plan on bed rest or quiet relaxation this evening. You must have a friend or relative stay with you tonight. Because of the sedation you have received, it is recommended that you do not drive a motor vehicle,operate any kind of machinery, or sign any contractual agreement for 24 hours following the procedure. You should not take alcoholic beverages tonight and only take sleeping medication that has been specifically prescribed for you by your physician. Call office [phone] if you have: Temperature greater than 100.4 Persistent nausea and vomiting Severe uncontrolled pain Redness, tenderness, or signs of infection (pain, swelling, redness, odor or green/yellow dischargearound the site) Difficulty breathing, headache or visual disturbances Hives Persistent dizziness or light-headedness Extreme fatigue Any other questions or concerns you may have after discharge In an emergency, call 911 or go to an Emergency Department at a nearby hospital It is important to bring a complete, current list of your medications to any medical appointments or hospitalizations. REMINDER: Carry a list of your medications and allergies with you at all times Call your pharmacy at least 1 week in advance to refill prescriptions Diet: Resume your usual diet. Good nutrition promotes healing. Increase fluid intake. Activity: Rest for 24 hrs then resume normal activity. Education Materials Received: {yes/no:636651} Belongings Returned: {yes/no:537995} I understand and acknowledge receipt of the above instructions. HOME MEDICATIONS: If on blood thinning products such as; Aspirin, NSAIDS, Plavix, Coumadin, Xarelto, Fish Oil, Multi-Vitamins or Herbal Supplements restart in 24 hours Restart Metformin in 48 hours if you had procedure with dye. Restart Metformin in 24 hours if no dye used during procedure. documented in this encounter* Instructions* Siva Duval MD - 08/11/2020 Call office [phone] if you have: Temperature greater than 100.4 Persistent nausea and vomiting Severe uncontrolled pain Redness, tenderness, or signs of infection (pain, swelling, redness, odor or green/yellow dischargearound the site) Difficulty breathing, headache or visual disturbances Hives Persistent dizziness or light-headedness Extreme fatigue Any other questions or concerns you may have after discharge In an emergency, call 911 or go to an Emergency Department at a nearby hospital It is important to bring a complete, current list of your medications to any medical appointments or hospitalizations. REMINDER: Carry a list of your medications and allergies with you at all times Call your pharmacy at least 1 week in advance to refill prescriptions Diet: Resume your usual diet. Good nutrition promotes healing. Increase fluid intake. Activity: Rest for 24 hrs then resume normal activity. Education Materials Received: {yes/no:180878} Belongings Returned: {yes/no:836049} I understand and acknowledge receipt of the above instructions. Patient or Guardian Signature Date/Time Physician's or R.N.'s Signature Date/Time The discharge instructions have been reviewed with the patient and/or Guardian. Patient and/or Guardian signed and retained a printed copy. ANESTHESIA INSTRUCTIONS FOLLOWING SURGERY Since you may experience some intermittent light-headedness for the next several hours, we suggest you plan on bed rest or quiet relaxation this evening. You must have a friend or relative stay with you tonight. Because of the sedation you have received, it is recommended that you do not drive a motor vehicle,operate any kind of machinery, or sign any contractual agreement for 24 hours following the procedure. You should not take alcoholic beverages tonight and only take sleeping medication that has been specifically prescribed for you by your physician. Call office [phone] if you have: Temperature greater than 100.4 Persistent nausea and vomiting Severe uncontrolled pain Redness, tenderness, or signs of infection (pain, swelling, redness, odor or green/yellow dischargearound the site) Difficulty breathing, headache or visual disturbances Hives Persistent dizziness or light-headedness Extreme fatigue Any other questions or concerns you may have after discharge In an emergency, call 911 or go to an Emergency Department at a nearby hospital It is important to bring a complete, current list of your medications to any medical appointments or hospitalizations. REMINDER: Carry a list of your medications and allergies with you at all times Call your pharmacy at least 1 week in advance to refill prescriptions Diet: Resume your usual diet. Good nutrition promotes healing. Increase fluid intake. Activity: Rest for 24 hrs then resume normal activity. HOME MEDICATIONS: If on blood thinning products such as; Aspirin, NSAIDS, Plavix, Coumadin, Xarelto, Fish Oil, Multi-Vitamins or Herbal Supplements restart in 24 hours Restart Metformin in 48 hours if you had procedure with dye. Restart Metformin in 24 hours if no dye used during procedure. Education Materials Received: {yes/no:794579} Belongings Returned: {yes/no:598248} I understand and acknowledge receipt of the above instructions. Patient or Guardian Signature Date/Time Physician's or R.N.'s Signature Date/Time The discharge instructions have been reviewed with the patient and/or Guardian. Patient and/or Guardian signed and retained a printed copy. documented in this encounter* Instructions* Siva Duval MD - 08/11/2020 Call office [phone] if you have: Temperature greater than 100.4 Persistent nausea and vomiting Severe uncontrolled pain Redness, tenderness, or signs of infection (pain, swelling, redness, odor or green/yellow dischargearound the site) Difficulty breathing, headache or visual disturbances Hives Persistent dizziness or light-headedness Extreme fatigue Any other questions or concerns you may have after discharge In an emergency, call 911 or go to an Emergency Department at a nearby hospital It is important to bring a complete, current list of your medications to any medical appointments or hospitalizations. REMINDER: Carry a list of your medications and allergies with you at all times Call your pharmacy at least 1 week in advance to refill prescriptions Diet: Resume your usual diet. Good nutrition promotes healing. Increase fluid intake. Activity: Rest for 24 hrs then resume normal activity. Education Materials Received: {yes/no:870418} Belongings Returned: {yes/no:211714} I understand and acknowledge receipt of the above instructions. Patient or Guardian Signature Date/Time Physician's or R.N.'s Signature Date/Time The discharge instructions have been reviewed with the patient and/or Guardian. Patient and/or Guardian signed and retained a printed copy. ANESTHESIA INSTRUCTIONS FOLLOWING SURGERY Since you may experience some intermittent light-headedness for the next several hours, we suggest you plan on bed rest or quiet relaxation this evening. You must have a friend or relative stay with you tonight. Because of the sedation you have received, it is recommended that you do not drive a motor vehicle,operate any kind of machinery, or sign any contractual agreement for 24 hours following the procedure. You should not take alcoholic beverages tonight and only take sleeping medication that has been specifically prescribed for you by your physician. Call office [phone] if you have: Temperature greater than 100.4 Persistent nausea and vomiting Severe uncontrolled pain Redness, tenderness, or signs of infection (pain, swelling, redness, odor or green/yellow dischargearound the site) Difficulty breathing, headache or visual disturbances Hives Persistent dizziness or light-headedness Extreme fatigue Any other questions or concerns you may have after discharge In an emergency, call 911 or go to an Emergency Department at a nearby hospital It is important to bring a complete, current list of your medications to any medical appointments or hospitalizations. REMINDER: Carry a list of your medications and allergies with you at all times Call your pharmacy at least 1 week in advance to refill prescriptions Diet: Resume your usual diet. Good nutrition promotes healing. Increase fluid intake. Activity: Rest for 24 hrs then resume normal activity. HOME MEDICATIONS: If on blood thinning products such as; Aspirin, NSAIDS, Plavix, Coumadin, Xarelto, Fish Oil, Multi-Vitamins or Herbal Supplements restart in 24 hours Restart Metformin in 48 hours if you had procedure with dye. Restart Metformin in 24 hours if no dye used during procedure. Education Materials Received: {yes/no:699205} Belongings Returned: {yes/no:824209} I understand and acknowledge receipt of the above instructions. Patient or Guardian Signature Date/Time Physician's or R.N.'s Signature Date/Time The discharge instructions have been reviewed with the patient and/or Guardian. Patient and/or Guardian signed and retained a printed copy. documented in this encounter* Instructions* Siva Duval MD - 11/10/2020 Call office [phone] if you have: Temperature greater than 100.4 Persistent nausea and vomiting Severe uncontrolled pain Redness, tenderness, or signs of infection (pain, swelling, redness, odor or green/yellow dischargearound the site) Difficulty breathing, headache or visual disturbances Hives Persistent dizziness or light-headedness Extreme fatigue Any other questions or concerns you may have after discharge In an emergency, call 911 or go to an Emergency Department at a nearby hospital It is important to bring a complete, current list of your medications to any medical appointments or hospitalizations. REMINDER: Carry a list of your medications and allergies with you at all times Call your pharmacy at least 1 week in advance to refill prescriptions Diet: Resume your usual diet. Good nutrition promotes healing. Increase fluid intake. Activity: Rest for 24 hrs then resume normal activity. Education Materials Received: {yes/no:907764} Belongings Returned: {yes/no:087252} I understand and acknowledge receipt of the above instructions. Patient or Guardian Signature Date/Time Physician's or R.N.'s Signature Date/Time The discharge instructions have been reviewed with the patient and/or Guardian. Patient and/or Guardian signed and retained a printed copy. ANESTHESIA INSTRUCTIONS FOLLOWING SURGERY Since you may experience some intermittent light-headedness for the next several hours, we suggest you plan on bed rest or quiet relaxation this evening. You must have a friend or relative stay with you tonight. Because of the sedation you have received, it is recommended that you do not drive a motor vehicle,operate any kind of machinery, or sign any contractual agreement for 24 hours following the procedure. You should not take alcoholic beverages tonight and only take sleeping medication that has been specifically prescribed for you by your physician. Call office [phone] if you have: Temperature greater than 100.4 Persistent nausea and vomiting Severe uncontrolled pain Redness, tenderness, or signs of infection (pain, swelling, redness, odor or green/yellow dischargearound the site) Difficulty breathing, headache or visual disturbances Hives Persistent dizziness or light-headedness Extreme fatigue Any other questions or concerns you may have after discharge In an emergency, call 911 or go to an Emergency Department at a nearby hospital It is important to bring a complete, current list of your medications to any medical appointments or hospitalizations. REMINDER: Carry a list of your medications and allergies with you at all times Call your pharmacy at least 1 week in advance to refill prescriptions Diet: Resume your usual diet. Good nutrition promotes healing. Increase fluid intake. Activity: Rest for 24 hrs then resume normal activity. HOME MEDICATIONS: If on blood thinning products such as; Aspirin, NSAIDS, Plavix, Coumadin, Xarelto, Fish Oil, Multi-Vitamins or Herbal Supplements restart in 24 hours Restart Metformin in 48 hours if you had procedure with dye. Restart Metformin in 24 hours if no dye used during procedure. Education Materials Received: {yes/no:674769} Belongings Returned: {yes/no:138497} I understand and acknowledge receipt of the above instructions. Patient or Guardian Signature Date/Time Physician's or R.N.'s Signature Date/Time The discharge instructions have been reviewed with the patient and/or Guardian. Patient and/or Guardian signed and retained a printed copy. documented in this encounter* Instructions* Siva Duval MD - 10/05/2020 Call office [phone] if you have: Temperature greater than 100.4 Persistent nausea and vomiting Severe uncontrolled pain Redness, tenderness, or signs of infection (pain, swelling, redness, odor or green/yellow dischargearound the site) Difficulty breathing, headache or visual disturbances Hives Persistent dizziness or light-headedness Extreme fatigue Any other questions or concerns you may have after discharge In an emergency, call 911 or go to an Emergency Department at a nearby hospital It is important to bring a complete, current list of your medications to any medical appointments or hospitalizations. REMINDER: Carry a list of your medications and allergies with you at all times Call your pharmacy at least 1 week in advance to refill prescriptions Diet: Resume your usual diet. Good nutrition promotes healing. Increase fluid intake. Activity: Rest for 24 hrs then resume normal activity. Education Materials Received: {yes/no:307273} Belongings Returned: {yes/no:735675} I understand and acknowledge receipt of the above instructions. Patient or Guardian Signature Date/Time Physician's or R.N.'s Signature Date/Time The discharge instructions have been reviewed with the patient and/or Guardian. Patient and/or Guardian signed and retained a printed copy. ANESTHESIA INSTRUCTIONS FOLLOWING SURGERY Since you may experience some intermittent light-headedness for the next several hours, we suggest you plan on bed rest or quiet relaxation this evening. You must have a friend or relative stay with you tonight. Because of the sedation you have received, it is recommended that you do not drive a motor vehicle,operate any kind of machinery, or sign any contractual agreement for 24 hours following the procedure. ? You should not take alcoholic beverages tonight and only take sleeping medication that has been specifically prescribed for you by your physician. ? Call office [phone] if you have: ? Temperature greater than 100.4 ? Persistent nausea and vomiting ? Severe uncontrolled pain ? Redness, tenderness, or signs of infection (pain, swelling, redness, odor or green/yellow discharge around the site) ? Difficulty breathing, headache or visual disturbances ? Hives ? Persistent dizziness or light-headedness ? Extreme fatigue ? Any other questions or concerns you may have after discharge ? ? In an emergency, call 911 or go to an Emergency Department at a nearby hospital ? ? It is important to bring a complete, current list of your medications to any medical appointmentsor hospitalizations. ? ? REMINDER: ? Carry a list of your medications and allergies with you at all times ? Call your pharmacy at least 1 week in advance to refill prescriptions ? ? Diet: Resume your usual diet. Good nutrition promotes healing. Increase fluid intake. ? ? Activity: Rest for 24 hrs then resume normal activity. ? HOME MEDICATIONS: If on blood thinning products such as; Aspirin, NSAIDS, Plavix, Coumadin, Xarelto, Fish Oil, Multi-Vitamins or Herbal Supplements restart in 24 hours Restart Metformin in 48 hours if you had procedure with dye. Restart Metformin in 24 hours if no dye used during procedure. ? ? ? Education Materials Received: {yes/no:958622} ? Belongings Returned: {yes/no:372058} ? I understand and acknowledge receipt of the above instructions. ? ? ? Patient or Guardian Signature Date/Time ? Physician's or R.N.'s Signature Date/Time ? ? The discharge instructions have been reviewed with the patient and/or Guardian. Patient and/or Guardian signed and retained a printed copy. documented in this encounter* Instructions* Jayla Brock RN - 09/30/2019 ANESTHESIA INSTRUCTIONS FOLLOWING SURGERY Since you may experience some intermittent light-headedness for the next several hours, we suggest you plan on bed rest or quiet relaxation this evening. You must have a friend or relative stay with you tonight. Because of the sedation you have received, it is recommended that you do not drive a motor vehicle,operate any kind of machinery, or sign any contractual agreement for 24 hours following the procedure. You should not take alcoholic beverages tonight and only take sleeping medication that has been specifically prescribed for you by your physician. Call office [phone] if you have: Temperature greater than 100.4 Persistent nausea and vomiting Severe uncontrolled pain Redness, tenderness, or signs of infection (pain, swelling, redness, odor or green/yellow dischargearound the site) Difficulty breathing, headache or visual disturbances Hives Persistent dizziness or light-headedness Extreme fatigue Any other questions or concerns you may have after discharge In an emergency, call 911 or go to an Emergency Department at a nearby hospital It is important to bring a complete, current list of your medications to any medical appointments or hospitalizations. REMINDER: Carry a list of your medications and allergies with you at all times Call your pharmacy at least 1 week in advance to refill prescriptions Diet: Resume your usual diet. Good nutrition promotes healing. Increase fluid intake. Activity: Rest for 24 hrs then resume normal activity. HOME MEDICATIONS: If on blood thinning products such as; Aspirin, NSAIDS, Plavix, Coumadin, Xarelto, Fish Oil, Multi-Vitamins or Herbal Supplements restart in 24 hours Restart Metformin in 48 hours if you had procedure with dye. Restart Metformin in 24 hours if no dye used during procedure. Education Materials Received: {yes/no:675586} Belongings Returned: {yes/no:020387} I understand and acknowledge receipt of the above instructions. Patient or Guardian Signature Date/Time Physician's or R.N.'s Signature Date/Time The discharge instructions have been reviewed with the patient and/or Guardian. Patient and/or Guardian signed and retained a printed copy. documented in this encounter* Instructions* Siva Duval MD - 12/08/2020 Call office [phone] if you have: Temperature greater than 100.4 Persistent nausea and vomiting Severe uncontrolled pain Redness, tenderness, or signs of infection (pain, swelling, redness, odor or green/yellow dischargearound the site) Difficulty breathing, headache or visual disturbances Hives Persistent dizziness or light-headedness Extreme fatigue Any other questions or concerns you may have after discharge In an emergency, call 911 or go to an Emergency Department at a nearby hospital It is important to bring a complete, current list of your medications to any medical appointments or hospitalizations. REMINDER: Carry a list of your medications and allergies with you at all times Call your pharmacy at least 1 week in advance to refill prescriptions Diet: Resume your usual diet. Good nutrition promotes healing. Increase fluid intake. Activity: Rest for 24 hrs then resume normal activity. Education Materials Received: {yes/no:162493} Belongings Returned: {yes/no:366587} I understand and acknowledge receipt of the above instructions. Patient or Guardian Signature Date/Time Physician's or R.N.'s Signature Date/Time The discharge instructions have been reviewed with the patient and/or Guardian. Patient and/or Guardian signed and retained a printed copy. ANESTHESIA INSTRUCTIONS FOLLOWING SURGERY Since you may experience some intermittent light-headedness for the next several hours, we suggest you plan on bed rest or quiet relaxation this evening. You must have a friend or relative stay with you tonight. Because of the sedation you have received, it is recommended that you do not drive a motor vehicle,operate any kind of machinery, or sign any contractual agreement for 24 hours following the procedure. ? You should not take alcoholic beverages tonight and only take sleeping medication that has been specifically prescribed for you by your physician. ? Call office [phone] if you have: ? Temperature greater than 100.4 ? Persistent nausea and vomiting ? Severe uncontrolled pain ? Redness, tenderness, or signs of infection (pain, swelling, redness, odor or green/yellow discharge around the site) ? Difficulty breathing, headache or visual disturbances ? Hives ? Persistent dizziness or light-headedness ? Extreme fatigue ? Any other questions or concerns you may have after discharge ? ? In an emergency, call 911 or go to an Emergency Department at a nearby hospital ? ? It is important to bring a complete, current list of your medications to any medical appointmentsor hospitalizations. ? ? REMINDER: ? Carry a list of your medications and allergies with you at all times ? Call your pharmacy at least 1 week in advance to refill prescriptions ? ? Diet: Resume your usual diet. Good nutrition promotes healing. Increase fluid intake. ? ? Activity: Rest for 24 hrs then resume normal activity. ? HOME MEDICATIONS: If on blood thinning products such as; Aspirin, NSAIDS, Plavix, Coumadin, Xarelto, Fish Oil, Multi-Vitamins or Herbal Supplements restart in 24 hours Restart Metformin in 48 hours if you had procedure with dye. Restart Metformin in 24 hours if no dye used during procedure. ? ? ? Education Materials Received: {yes/no:224056} ? Belongings Returned: {yes/no:746738} ? I understand and acknowledge receipt of the above instructions. ? ? ? Patient or Guardian Signature Date/Time ? Physician's or R.N.'s Signature Date/Time ? ? ? The discharge instructions have been reviewed with the patient and/or Guardian. Patient and/or Guardian signed and retained a printed copy. documented in this encounter* Instructions* Siva Duval MD - 09/08/2020 Call office [phone] if you have: Temperature greater than 100.4 Persistent nausea and vomiting Severe uncontrolled pain Redness, tenderness, or signs of infection (pain, swelling, redness, odor or green/yellow dischargearound the site) Difficulty breathing, headache or visual disturbances Hives Persistent dizziness or light-headedness Extreme fatigue Any other questions or concerns you may have after discharge In an emergency, call 911 or go to an Emergency Department at a nearby hospital It is important to bring a complete, current list of your medications to any medical appointments or hospitalizations. REMINDER: Carry a list of your medications and allergies with you at all times Call your pharmacy at least 1 week in advance to refill prescriptions Diet: Resume your usual diet. Good nutrition promotes healing. Increase fluid intake. Activity: Rest for 24 hrs then resume normal activity. Education Materials Received: {yes/no:795298} Belongings Returned: {yes/no:449933} I understand and acknowledge receipt of the above instructions. Patient or Guardian Signature Date/Time Physician's or R.N.'s Signature Date/Time The discharge instructions have been reviewed with the patient and/or Guardian. Patient and/or Guardian signed and retained a printed copy. ANESTHESIA INSTRUCTIONS FOLLOWING SURGERY Since you may experience some intermittent light-headedness for the next several hours, we suggest you plan on bed rest or quiet relaxation this evening. You must have a friend or relative stay with you tonight. Because of the sedation you have received, it is recommended that you do not drive a motor vehicle,operate any kind of machinery, or sign any contractual agreement for 24 hours following the procedure. You should not take alcoholic beverages tonight and only take sleeping medication that has been specifically prescribed for you by your physician. Call office [phone] if you have: Temperature greater than 100.4 Persistent nausea and vomiting Severe uncontrolled pain Redness, tenderness, or signs of infection (pain, swelling, redness, odor or green/yellow dischargearound the site) Difficulty breathing, headache or visual disturbances Hives Persistent dizziness or light-headedness Extreme fatigue Any other questions or concerns you may have after discharge In an emergency, call 911 or go to an Emergency Department at a nearby hospital It is important to bring a complete, current list of your medications to any medical appointments or hospitalizations. REMINDER: Carry a list of your medications and allergies with you at all times Call your pharmacy at least 1 week in advance to refill prescriptions Diet: Resume your usual diet. Good nutrition promotes healing. Increase fluid intake. Activity: Rest for 24 hrs then resume normal activity. Education Materials Received: {yes/no:169567} Belongings Returned: {yes/no:518935} HOME MEDICATIONS: If on blood thinning products such as; Aspirin, NSAIDS, Plavix, Coumadin, Xarelto, Fish Oil, Multi-Vitamins or Herbal Supplements restart in 24 hours Restart Metformin in 48 hours if you had procedure with dye. Restart Metformin in 24 hours if no dye used during procedure. The discharge instructions have been reviewed with the patient and/or Guardian. Patient and/or Guardian signed and retained a printed copy. documented in this encounter* Instructions* Jalyn Hong RN - 12/24/2019 ANESTHESIA INSTRUCTIONS FOLLOWING SURGERY Since you may experience some intermittent light-headedness for the next several hours, we suggest you plan on bed rest or quiet relaxation this evening. You must have a friend or relative stay with you tonight. Because of the sedation you have received, it is recommended that you do not drive a motor vehicle,operate any kind of machinery, or sign any contractual agreement for 24 hours following the procedure. You should not take alcoholic beverages tonight and only take sleeping medication that has been specifically prescribed for you by your physician. Call office [phone] if you have: Temperature greater than 100.4 Persistent nausea and vomiting Severe uncontrolled pain Redness, tenderness, or signs of infection (pain, swelling, redness, odor or green/yellow dischargearound the site) Difficulty breathing, headache or visual disturbances Hives Persistent dizziness or light-headedness Extreme fatigue Any other questions or concerns you may have after discharge In an emergency, call 911 or go to an Emergency Department at a nearby hospital It is important to bring a complete, current list of your medications to any medical appointments or hospitalizations. REMINDER: Carry a list of your medications and allergies with you at all times Call your pharmacy at least 1 week in advance to refill prescriptions Diet: Resume your usual diet. Good nutrition promotes healing. Increase fluid intake. Activity: Rest for 24 hrs then resume normal activity. Education Materials Received: {yes/no:558561} Belongings Returned: {yes/no:991475} I understand and acknowledge receipt of the above instructions. Patient or Guardian Signature Date/Time Physician's or R.N.'s Signature Date/Time The discharge instructions have been reviewed with the patient and/or Guardian. Patient and/or Guardian signed and retained a printed copy. documented in this encounter* Instructions* Siva Duval MD - 09/02/2019 ANESTHESIA INSTRUCTIONS FOLLOWING SURGERY Since you may experience some intermittent light-headedness for the next several hours, we suggest you plan on bed rest or quiet relaxation this evening. You must have a friend or relative stay with you tonight. Because of the sedation you have received, it is recommended that you do not drive a motor vehicle,operate any kind of machinery, or sign any contractual agreement for 24 hours following the procedure. You should not take alcoholic beverages tonight and only take sleeping medication that has been specifically prescribed for you by your physician. Call office [phone] if you have: Temperature greater than 100.4 Persistent nausea and vomiting Severe uncontrolled pain Redness, tenderness, or signs of infection (pain, swelling, redness, odor or green/yellow dischargearound the site) Difficulty breathing, headache or visual disturbances Hives Persistent dizziness or light-headedness Extreme fatigue Any other questions or concerns you may have after discharge In an emergency, call 911 or go to an Emergency Department at a nearby hospital It is important to bring a complete, current list of your medications to any medical appointments or hospitalizations. REMINDER: Carry a list of your medications and allergies with you at all times Call your pharmacy at least 1 week in advance to refill prescriptions Diet: Resume your usual diet. Good nutrition promotes healing. Increase fluid intake. Activity: Rest for 24 hrs then resume normal activity. Education Materials Received: {yes/no:379787} Belongings Returned: {yes/no:036146} I understand and acknowledge receipt of the above instructions. Patient or Guardian Signature Date/Time Physician's or R.N.'s Signature Date/Time The discharge instructions have been reviewed with the patient and/or Guardian. Patient and/or Guardian signed and retained a printed copy. documented in this encounter History of Present Illness * Jayla Brock RN - 06/24/2019 1:37 PM EDT 1337 To phase 2 recovery via cart. Report received from Jayla Garibay RN OR. Pt arousing to name. Skinis warm and dry. Respirations are easy & non-labored. 1342 Injection site mid back is dry and intact. No edema noted. Pedal push/pull, bilateral leg raise and hand grasp are equal and strong. Denies pain at present. 1346 Pt given juice and muffin per request. Call light in reach. 1350 to bedside. Pt respirations are easy & non-labored. A & O x 3. Skin is warm and dry. Continues to deny pain at present. 1400 Pt ate and drank 100%. Reviewed discharge instructions with patient and spouse. Voiced understanding. Skin is warm and dry. Respirations are easy & non- labored. A & O x 3. Denies pain. 1408 Dressing at bedside with spouse assist. 1415 Skin warm and dry. Respirations are easy & non-labored. A & O x 3. To private vehicle x 1 assist via ambulation. Gait steady. documented in this encounter* Gris Heath RN - 11/10/2020 8:25 AM EST 0825- Dr. Aden updated of BP. Patient states BP is always high before surgery. No new orders at this time. * Gris Heath RN - 11/10/2020 8:17 AM EST Discharge instructions given. Understanding verbalized. * Viri Clement RN - 11/09/2020 1:23 PM EST Patient contacted regarding COVID-19 screen. Following questions asked: In the last month, have you been in contact with someone who was confirmed or suspected to have Coronavirus/COVID-19: Patient stated NO Do you or family members have any of the following symptoms: Cough-no Muscle pain-no Shortness of breath-no Fever-no Weakness-no Severe headache-no Sore throat-no Respiratory symptoms-no Loss of taste and smell-no Have you traveled in the last month? No documented in this encounter* Angeles Cole RN - 10/05/2020 9:11 AM EST 0901 patient to phase 2 via cart. Surgery RN at bedside with report. Vitals stable on room air. IV capped. Injection sites clean and dry. 0906 gave patient snack and drink. 0915 IV removed. No complications 0920 patient getting dressed 0925 escorted to discharge * Linnea Lopez RN - 10/02/2020 9:09 AM EST Patient contacted regarding COVID-19 screen. Following questions asked: In the last month, have you been in contact with someone who was confirmed or suspected to have Coronavirus/COVID-19: Patient stated NO Do you or family members have any of the following symptoms: Cough-no Muscle pain-no Shortness of breath-no Fever-no Weakness-no Severe headache-no Sore throat-no Respiratory symptoms-no Loss of taste and smell-no Have you traveled in the last month? No documented in this encounter* Jayla Brock RN - 09/30/2019 9:29 AM EST 0929 To phase 2 recovery via cart. Report received from Lindy LAMAS OR. Pt is waking and VS WNL. Skinis warm and dry. Respirations are easy & non-labored. Pedal push/pull, bilateral leg raise equal and strong. Denies pain. Injection site clean, dry and intact. 0940 to bedside. Pt given juice and muffin per request. Call light in reach. Denies needs at present. 1000 Ate and drank 100%. Skin is warm and dry. Respirations are easy & non- labored. A & O x3. Skin is warm and dry. Continues to deny pain. Dressing at bedside with spouse assistance. 1005 Reviewed discharge instructions with patient and spouse. Voiced understanding. [facility]0 [facility] Gait steady. documented in this encounter* Jalyn Hnog RN - 12/08/2020 9:05 AM EST 0905- PT arrived to PACU phase 2. Pt hooked up to monitor, VSS, pt breathing deeply on room air. 0907- PT sat up snack given, call light within reach, 0918- IV removed, pt getting dressed. 0920- Ride called. 0924- Pt discharged walked to car with this RN documented in this encounter* Bere Bennett RN - 09/08/2020 1:47 PM EST Discharge instructions given to pt. Belongings packed and sent with pt. Pt verbalized understandingof instructions. * Zahra Foster RN - 09/07/2020 11:35 AM EST Patient contacted regarding COVID-19 screen. Following questions asked: In the last month, have you been in contact with someone who was confirmed or suspected to have Coronavirus/COVID-19: Patient stated NO Do you or family members have any of the following symptoms: Cough-no Muscle pain-no Shortness of breath-no Fever-no Weakness-no Severe headache-no Sore throat-no Respiratory symptoms-no Loss of taste and smell-no Have you traveled in the last month? No documented in this encounter* Jalyn Hong RN - 12/24/2019 9:38 AM EST 0938- Pt to PACU phase 2, sleepy on arrival, pt hooked up to monitor, VSS, pt breathing deeply on room air. 0942- Pt given snack at bedside. 1008- IV removed 1009- PT given discharge instructions verbalized understanding 1010- Pt getting dressed 1018- Pt dressed walked to bathroom gait steady 1022- PT discharged walked to car with this RN documented in this encounter* Leni Lock, RN - 09/02/2019 7:59 AM EDT 0747 to side. Patient drowsy but arousable. 0752 Snacks given, more alert. Denies pain or needs. 0805 Clothes given to dress. 0810 Discharge instructions given, understanding voiced, questions answered. 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 Advance Directives and Living Will Power of Leaded Glass Installer Latest Code Status on File Code Status Date Activated Date Inactivated Comments Full Code 07/15/2016 7:29 AM 07/16/2016 2:46 AM Full Code 02/08/2013 8:54 AM 02/08/2013 1:24 PM Full Code 02/08/2013 6:22 AM 02/08/2013 8:54 AM Documents on File Type Date Recorded 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 ACP-Advance Directive ACP-Power of Leaded Glass Installer Latest Code Status on File Code Status Date Activated Date Inactivated Comments Full Code 09/26/2023 9:00 AM Question Answer Comments Plan of Care: Code Status Discussion Completed Decision Maker: Patient Latest Code Status on File Code Status Date Activated Date Inactivated Comments Full Code 09/27/2023 5:28 AM Question Answer Comments Plan of Care: Code Status Discussion Completed Decision Maker: Patient Code Status History Code Status Date Activated Date Inactivated Comments Full Code 09/26/2023 9:00 AM 09/27/2023 2:55 AM Question Answer Comments Plan of Care: Code Status Discussion Completed Decision Maker: Patient Latest Code Status on File Code Status Date Activated Date Inactivated Comments Full Code 09/27/2023 5:28 AM Question Answer Comments Plan of Care: Code Status Discussion Completed Decision Maker: Patient Code Status History Code Status Date Activated Date Inactivated Comments Full Code 09/26/2023 9:00 AM 09/27/2023 2:55 AM Question Answer Comments Plan of Care: Code Status Discussion Completed Decision Maker: Patient Latest Code Status on File Code Status Date Activated Date Inactivated Comments Full Code 09/27/2023 5:28 AM 09/29/2023 7:55 PM Question Answer Comments Plan of Care: Code Status Discussion Completed Decision Maker: Patient Latest Code Status on File Code Status Date Activated Date Inactivated Comments Full Code 07/15/2016 7:29 AM 07/16/2016 2:46 AM Code Status History Code Status Date Activated Date Inactivated Comments Full Code 02/08/2013 8:54 AM 02/08/2013 1:24 PM Full Code 02/08/2013 6:22 AM 02/08/2013 8:54 AM Assessments Diagnosis Chronic pain syndrome Diagnosis Lumbosacral radiculitis Thoracic or lumbosacral neuritis or radiculitis, unspecified Diagnosis Encounter for screening mammogram for malignant neoplasm of breast Other screening mammogram Diagnosis Lumbar spondylosis Lumbosacral spondylosis without myelopathy Diagnosis Abdominal pain, epigastric Constipation, unspecified constipation type Reason for Referral Status Reason Specialty Diagnoses / Procedures Referred By Contact Referred To Contact Authorized Radiology Diagnoses Lumbosacral radiculitis Procedures MRI LUMBAR SPINE WO CONTRAST Julian Spain, SENIOR TECHNICAL RECRUITER - BURNER OPERATOR [address] [address] Status Reason Specialty Diagnoses / Procedures Referred By Contact Referred To Contact Authorized Radiology Diagnoses Encounter for screening mammogram for malignant neoplasm of breast Procedures JOSELYN AMI DIGITAL SCREEN SELF REFERRAL W OR WO CAD BILATERAL Self Referral, Mammography Specialty Diagnoses / Procedures Referred By Contac t Referred To Contact Diagnoses Dizziness Procedures PT vestibular rehab Turner Fernandez, PA [address] [place] [address] Referral ID Status Reason Start Date Expiration Date Visits Re quested Visits Authorized [id number] Open 07/03/2022 07/03/2023 1 1 Specialty Diagnoses / Procedures Referred By Contac t Referred To Contact Diagnoses Paraesophageal hiatal hernia Procedures ECG 12 lead Chance Patton MD [address] [facility], [address] [address] Referral ID Status Reason Start Date Expiration Date V isits Requested Visits Authorized [id number] Pending Review 09/25/2023 09/24/2024 1 1 Specialty Diagnoses / Procedures Referred By Contac t Referred To Contact Radiology Diagnoses Paraesophageal hiatal hernia Procedures FL GI esophagram Chance Patton MD [address] [facility], [facility] [address] [place] [address] Referral ID Status Reason Start Date Expiration Date Visits Requested Visits Authorized [id number] Pending Review Perform Procedure 09/24/2024 1 1 Summary Purpose Family History No Family History Records FoundNo Family History Records FoundNo Family History Records FoundNo Family History Records FoundNo Family History Records Found Chief Complaint and Reason for Visit Chief Complaint k04.7 Additional Source Comments Reason for Visit (unrecogniz ed section and content) Status Reason Specialty Diagnoses / Procedures Referre d By Contact Referred To Contact Diagnoses BILATERAL SACROILIITIS Procedures HI OFFICE/OUTPT VISIT,PROCEDURE ONLY HI INJ DX/THER AGNT PARAVERT FACET JOINT, CERV/THORAC, 1ST LEVEL bilateral T-facet MBB # 2 @ T3-4, T4-5, T5-6 Siva Duval MD [address] [place] [address] [place] Status Reason Specialty Diagnoses / Procedures Referre d By Contact Referred To Contact Diagnoses Bilateral sacroiliitis (HCC) Bilateral sacroilitis Procedures HI INJECT RX OTHER PERIPH NERVE Bilateral SI RFA, LEFT SIDE FIRST Siva Duval MD [address] [place] [address] [employer] Status Reason Specialty Diagnoses / Procedures Referre d By Contact Referred To Contact Diagnoses Sacroiliitis, not elsewhere classified Bilateral sacroilitis Procedures HI INJECT RX OTHER PERIPH NERVE SI RFA, right Siva Duval MD [address] [address] [facility] Status Reason Specialty Diagnoses / Procedures Referre d By Contact Referred To Contact Closed Radiology Procedures MRI LUMBAR SPINE WO CONTRAST Julian Spain, SENIOR TECHNICAL RECRUITER - BURNER OPERATOR [address] [facility] [address] [place] [address] [address] [facility] [address] [place] [address] Status Reason Specialty Diagnoses / Procedures Referre d By Contact Referred To Contact Closed Radiology Diagnoses Encounter for screening mammogram for malignant neoplasm of breast Procedures JOSELYN SCREENING BILATERAL Steph Hung MD [address] [facility] [address] [place] [address] Sukhjinder [facility] [address] [place] [address] Status Reason Specialty Diagnoses / Procedures Referre d By Contact Referred To Contact Diagnoses Spondylosis without myelopathy or radiculopathy, thoracic region BILATERAL SACROILIITIS Procedures HI DSTR NROLYTC AGNT PARVERTEB FCT SNGL CRVCL/THORA HI DSTR NROLYTC AGNT PARVERTEB FCT ADDL CRVCL/THORA Bilateral T-facet RFA @ T3-4, T4-5, T5-6 RIGHT SIDE FIRST Siva Duval MD [address] [place] [address] [employer] Status Reason Specialty Diagnoses / Procedures Re ferred By Contact Referred To Contact Diagnoses Spondylosis without myelopathy or radiculopathy, lumbar region LUMBAR Spondylosis Procedures HI RADIOFREQUENCY NEUROTOMY LUMBAR OR SACRAL, W IMAGE GUIDANCE, SINGLE HI RADIOFREQ NEUROTOMY LUMBAR OR SACRAL, W IMAGE GUIDE,EA ADDL LEVEL L-facet RFA Left side @ L3-4, L4-5, L5-S1 Siva Duval MD [address] [address] [facility] Status Reason Specialty Diagnoses / Procedures Referre d By Contact Referred To Contact Diagnoses Thoracic spondylosis Procedures HI DSTR NROLYTC AGNT PARVERTEB FCT SNGL CRVCL/THORA Thoracic RFA T-facet T3-4, 4-5, 5-6 Left Siva Duval MD [address] [address] [facility] [employer] Status Reason Specialty Diagnoses / Procedures Referre d By Contact Referred To Contact Diagnoses Spondylosis without myelopathy or radiculopathy, thoracic region BILATERAL SACROILIITIS Procedures HI DSTR NROLYTC AGNT PARVERTEB FCT SNGL CRVCL/THORA HI DSTR NROLYTC AGNT PARVERTEB FCT ADDL CRVCL/THORA Bilateral T-facet RFA @ T3-4, T4-5, T5-6 Left Siva Duval MD [address] [address] [place] Status Reason Specialty Diagnoses / Procedures Referre d By Contact Referred To Contact Open Radiology Diagnoses Abdominal pain, epigastric Constipation, unspecified constipation type Procedures US ABDOMEN LIMITED US ABDOMEN COMPLETE Dieudonne Lam MD [address] [place] [address] Status Reason Specialty Diagnoses / Procedures Re ferred By Contact Referred To Contact Diagnoses Spondylosis without myelopathy or radiculopathy, lumbar region LUMBAR Spondylosis Procedures HI RADIOFREQUENCY NEUROTOMY LUMBAR OR SACRAL, W IMAGE GUIDANCE, SINGLE HI RADIOFREQ NEUROTOMY LUMBAR OR SACRAL, W IMAGE GUIDE,EA ADDL LEVEL bilateral L-facet RFA RIGHT SIDE First @ L3-4, L4-5, L5-S1 Siva Duval MD [address] [address] [facility] [employer] Status Reason Specialty Diagnoses / Procedures Referre d By Contact Referred To Contact Diagnoses Thoracic spondylosis Thoracic spondylosis Procedures HI INJECT RX OTHER PERIPH NERVE bilateral SI RFA, Left side Siva Duval MD [address] [address] [facility] [employer] Status Reason Specialty Diagnoses / Procedures Referre d By Contact Referred To Contact Diagnoses Thoracic spondylosis Thoracic spondylosis Procedures HI DSTR NROLYTC AGNT PARVERTEB FCT SNGL CRVCL/THORA Thoracic RFA T-facet T3-4, 4-5, 5-6 Left Siva Duval MD [address] [place] [address] [place] [address] [facility] Status Reason Specialty Diagnoses / Procedures Referre d By Contact Referred To Contact Diagnoses Bilateral sacroiliitis (HCC) Bilateral sacroilitis Procedures HI INJECT RX OTHER PERIPH NERVE SI RFA- right Siva Duval MD [address] [facility] [address] [place] [address] [facility] Status Reason Specialty Diagnoses / Procedures Referre d By Contact Referred To Contact Diagnoses Thoracic spondylosis Thoracic spondylosis Procedures HI INJECT RX OTHER PERIPH NERVE bilateral SI RFA, Right Side first Siva Duval MD [address] [facility] [address] [place] [address] [facility] Reason Comments Dizziness Specialty Diagnoses / Procedures Referred By Contac t Referred To Contact Diagnoses Spondylosis of thoracic region without myelopathy or radiculopathy Spondylosis of thoracic region without myelopathy or radiculopathy Procedures HI DSTR NROLYTC AGNT PARVERTEB FCT SNGL CRVCL/THORA HI DSTR NROLYTC AGNT PARVERTEB FCT ADDL CRVCL/THORA Bilateral Thoracic facet Radiofrequency ablation Thoracic 4-5, 5-6. Siva Duval MD [address] [address] [place] [facility] [address] [place] [address] Referral ID Status Reason Start Date Expiration Date Visits Re quested Visits Authorized [id number] 1 1 Reason Comments Hiatal Hernia Specialty Diagnoses / Procedures Referred By Contac t Referred To Contact Radiology Diagnoses Paraesophageal hiatal hernia Procedures [place] GI esophagram Chance Patton MD [address] [facility] Medical Office [facility], [place] [place] [address] Referral ID Status Reason Start Date Expiration Date Visits Requested Visits Authorized [id number] Pending Review Perform Procedure 3 09/24/2024 1 1 Specialty Diagnoses / Procedures Referred By Contac t Referred To Contact Diagnoses Paraesophageal hiatal hernia Paraesophageal hiatal hernia [K44.9] Procedures HI LAPS RPR PARAESPHGL HRNA INCL FUNDPLSTY W/O MESH Repair Diaphragmatic Hernia Laparoscopy Chance Patton MD [address] [facility] Medical Office Bld[address], [address] [place] [address] Lauren Or [address] [place] [address] Referral ID Status Reason Start Date Expiration Date Visits Re quested Visits Authorized [id number] 1 1 Reason Comments Post-op Reason Comments Follow-up Specialty Diagnoses / Procedures Referred By Contac t Referred To Contact Physical Therapist / Physical Therapy Diagnoses Pain in thoracic spine Other low back pain Other chronic pain Weakness Procedures PT EVALUATION Julian Spain, SENIOR TECHNICAL RECRUITER - BURNER OPERATOR [address] [facility] [address] [place] [address] Delores Woodward, PT Referral ID Status Reason Start Date Expiration Date Visits Requested Visits Authorized [id number] Authorized - Rehab 01/05/2024 03/07/2024 9 9 PRN Active and Recently Administ ered Medications (unrecognized section and content) Medication Order 06/05/2021 06/06/2021 06/07/2021 bupivacaine (PF) (MARCAINE) 0.25 % injection (CANCELED) PRN, Starting on Mon06/07/21 at 1401, Intra-op 1401 (Given - Provid er: Siva Duval MD) lidocaine PF 1 % injection PRN, Starting on Mon06/07/21 at 1401, Intra-op 1401 (Given - Provid er: Siva Duval MD) PRN Medication Order 10/09/2021 10/10/2021 10/11/2021 lidocaine PF 1 % injection (CANCELED) PRN, Starting on Mon10/11/21 at 1320, Intra-op 1320 (Given - Provid er: Siva Duval MD) PRN Medication Order 12/18/2021 12/19/2021 12/20/2021 bupivacaine (PF) (MARCAINE) 0.25 % injection (CANCELED) PRN, Starting on Mon12/20/21 at 0809, Intra-op 0809 (Given - Provid er: Siva Duval MD) lidocaine PF 1 % injection (CANCELED) PRN, Starting on Mon12/20/21 at 0810, Intra-op 0810 (Given - Provid er: Siva Duval MD) methylPREDNISolone acetate (DEPO-MEDROL) injection (CANCELED) PRN, Starting on Mon12/20/21 at 0814, Intra-op 0814 (Given - Provid er: Siva Duval MD) PRN Medication Order 04/12/2022 04/13/2022 04/14/2022 bupivacaine (PF) (MARCAINE) 0.25 % injection (CANCELED) PRN, Starting on Iris 04/14/22 at 1118, Until Iris 04/14/22 at 1131, Intra-op 1118 (Given - Provid er: Siva Duval MD) lidocaine PF 1 % injection (CANCELED) PRN, Starting on Iris 04/14/22 at 1120, Until Iris 04/14/22 at 1131, Intra-op 1120 (Given - Provid er: Siva Duval MD) PRN Medication Order 05/28/2022 05/29/2022 05/30/2022 bupivacaine (PF) (MARCAINE) 0.25 % injection (CANCELED) PRN, Starting on Mon05/30/22 at 1226, Until Mon05/30/22 at 1250, Intra-op 1226 (Given - Provid er: Siva Duval MD) lidocaine PF 1 % injection (CANCELED) PRN, Starting on Mon05/30/22 at 1226, Until Mon05/30/22 at 1250, Intra-op 1226 (Given - Provid er: Siva Duval MD) Scheduled Medication Order 07/01/2022 07/02/2022 07/03/2022 0.9 % sodium chloride bolus (COMPLETED) 1,000 mL (10 mL/kg), IntraVENous, at 495.9 mL/hr, Administer over 121 Minutes, ONCE, On Mon07/03/22 at 0630, For 1 dose 0616 (New Bag - Prov ider: Kala Carballo (Casie), ADAMS)0750 (Stopped - Provider: Kala Carballo (Casie), ADAMS) aspirin chewable tablet 324 mg (COMPLETED) 324 mg, Oral, ONCE, 1 dose, On 07/03/22 at 0800 0750 (Given - Provid er: Kala Carballo RN (Casie)) clopidogrel (PLAVIX) tablet 75 mg (COMPLETED) 75 mg, Oral, ONCE, 1 dose, On 07/03/22 at 0830 0809 (Given - Provid er: Kala Carballo (Casie), ADAMS) meclizine (ANTIVERT) chewable tablet 25 mg (COMPLETED) 25 mg, Oral, ONCE, 1 dose, On 07/03/22 at 0630 0616 (Given - Provid er: Kala Carballo RN (Casie)) PRN Medication Order 07/01/2022 07/02/2022 07/03/2022 iopamidol (ISOVUE-370) 76 % injection 80 mL (COMPLETED) 80 mL, IntraVENous, IMG ONCE PRN, 1 dose, Starting on 07/03/22 at 0621, Until 07/03/22 at 0621, Other 0621 (Given - Provid er: Lyudmila Barone) PRN Medication Order 08/14/2022 08/15/2022 08/16/2022 bupivacaine (PF) (MARCAINE) 0.25 % injection (CANCELED) PRN, Starting on Mon08/16/22 at 1033, Until Mon08/16/22 at 1043, Intra-op 1033 (Given - Provid er: Siva Duval MD) lidocaine PF 1 % injection (CANCELED) PRN, Starting on Mon08/16/22 at 1033, Until Mon08/16/22 at 1043, Intra-op 1033 (Given - Provid er: Siva Duval MD) Scheduled Medication Order 09/27/2023 09/28/2023 09/29/2023 alum-mag hydroxide-simeth (Mylanta) 200-200-20 mg/5 mL oral suspension 20 mL 20 mL, oral, 3 times daily, First dose on Mon09/27/23 at 1500, Phase II/On Unit 1512 (Given - Provider: Lucy Vazquez RN)2147 (Given - Provider: Maria E Chilel RN) 0900 (Given - Provider: Ilan Marin RN)1619 (Given - Provider: Ilan Marin RN)2054 (Given - Provider: Debbie Hopper RN) 0918 (Given - Provider: Fay Madrid, ADAMS)1532 (Given - Provider: Fay Madrid RN)2100 (Due) atenolol (Tenormin) tablet 25 mg 25 mg, oral, Daily, First dose on Mon09/27/23 at 1445 1511 (Given - Provider: Lucy Vazquez RN) 0900 (Given - Provider: Ilan Marin RN) 0900 (Not Given - Provider: Fay Madrid RN - Reason: Order parameters not met) atorvastatin (Lipitor) tablet 80 mg 80 mg, oral, Nightly, First dose on Mon09/27/23 at 2100 2147 (Given - Provider: Maria E Chilel RN) 2054 (Given - Provider: Debbie Hopper RN) 2100 (Due) enoxaparin (Lovenox) syringe 40 mg 40 mg, subcutaneous, Daily, First dose on Iris 09/28/23 at 1245 1329 (Given - Provider: Ilan Marin RN) 0918 (Given - Provider: Fay Madrid RN) heparin (porcine) injection 5,000 Units (COMPLETED) 5,000 Units, subcutaneous, Once, On Mon09/27/23 at 0815, For 1 dose, Preprocedure 0805 (Given - Provider: Dina Crawford RN - Comment: GIVEN IN THE OR PRE-OPERATIVELY)081 5 (Due) ipratropium-albuteroL (Duo-Neb) 0.5-2.5 mg/3 mL nebulizer solution 3 mL (COMPLETED) 3 mL, nebulization, Once, On Mon09/29/23 at 0915, For 1 dose 1020 (Given - Provider: Winter Jones, MECHANICAL COMMISSIONING ENGINEER) ipratropium-albuteroL (Duo-Neb) 0.5-2.5 mg/3 mL nebulizer solution 3 mL (CANCELED) 3 mL, nebulization, Every 6 hours RT, First dose on Mon09/29/23 at 1500 1400 (Given - Provider: Winter Jones, MECHANICAL COMMISSIONING ENGINEER) lidocaine 4 % patch 1 patch 1 patch, transdermal, Administer over 12 Hours, Daily, First dose on Mon09/28/23 at 1245, Apply to LUQ over main incision okay to since incision is glued. Patch will remain on for 12 hours, then removed for 12 hours. 1329 (Medication Applied - Provider: Ilan Marin RN) 0129 (Medication Removed - Provider: Debbie Hopper RN - Comment: llq)0920 (Medication Applied - Provider: Fay Madrid RN)2120 (Due: Medication Removed - Provider: Fay Madrid RN) lisinopril 20 mg, hydroCHLOROthiazide 25 mg for Zestoretic/Prinizide oral, Daily, First dose on Mon09/27/23 at 1445, Give both components for Zestoretic/Prinizide product 1511 (Given - Provider: Lucy Vazquez RN) 0900 (Given - Provider: Ilan Marin RN) 0900 (Not Given - Provider: Fay Madrid RN - Reason: Order parameters not met) NIFEdipine ER (Adalat CC) 24 hr tablet 30 mg 30 mg, oral, Daily before breakfast, First dose on Mon09/27/23 at 1445, Give on an empty stomach. Do not crush, chew, or split. 1631 (Given - Provider: uLcy Vazquez RN) 0632 (Given - Provider: Maria E Chilel RN) 0648 (Given - Provider: Debbie Hopper RN) vancomycin (Vancocin) 1,500 mg in dextrose 5 % in water (D5W) 500 mL IV (COMPLETED) 1,500 mg (rounded from 1,515 mg = 15 mg/kg 101 kg), intravenous, at 353.3 mL/hr, Administer over 90 Minutes, Once, On Mon09/27/23 at 0815, For 1 dose, Intraprocedure, Dosing of this medication varies based on severity of illness. Does this patient have sepsis or concern for sepsis (probable or documented infection plus systemic manifestations of infection)? No, Suspected Indication (Select all that apply): Surgical Prophylaxis 0807 (New Bag - Provider: Susan Ramsey APRN-SCIENCE CENTER DISPLAY BUILDER) Continuous Medication Order 09/27/2023 09/28/2023 09/29/2023 lactated Ringer's infusion (CANCELED) 100 mL/hr, intravenous, Continuous, Starting on Mon09/27/23 at 0530, Preprocedure 0613 (New Bag - Provider: Skylar Ley RN - Comment: RIGHT WRIST)0738 (Continued by Anesthesia - Provider: Susan Ramsey APRN-SCIENCE CENTER DISPLAY BUILDER)1256 (Rate/Dose Change - Provider: Susan Ramsey APRN-FLORENTIN)1332 (Stopped - Provider: Lucy Vazquez RN) lactated Ringer's infusion (CANCELED) 50 mL/hr, intravenous, Continuous, Starting on Mon09/27/23 at 1345 1632 (New Bag - Provider: Lucy Vazquez RN)1701 (Rate/Dose Verify - Provider: Lucy Vazquez RN)1840 (Rate/Dose Verify - Provider: Lucy Vazquez RN)2023 (New Bag - Provider: MariaE Chilel RN) 0631 (Rate/Dose Verify - Provider: Maria E Chilel RN)1119 (Rate/Dose Verify - Provider: Ilan Marin, ADAMS)1137 (Stopped - Provider: Ilan Marin RN) PRN Medication Order 09/27/2023 09/28/2023 09/29/2023 acetaminophen (Tylenol) tablet 650 mg 650 mg, oral, Every 4 hours PRN, pain mild (1-3), first line, Starting on Mon09/27/23 at 1436, Phase II/On Unit, If ordered PRN for pain, nurse is permitted to administer this medication for higher pain scores based on patient preference? Yes BUPivacaine-EPINEPHrine (Marcaine w/EPI) 0.25 %-1:200,000 injection (CANCELED) As needed, Starting on Mon09/27/23 at 0907, Intraprocedure 0907 (Given - Provider: Chance Patton MD) hydrALAZINE (Apresoline) injection 10 mg 10 mg, intravenous, Every 6 hours PRN, for SBP >140, Starting on Mon09/27/23 at 1714 1754 (Given - Provider: Lucy Vazquez RN) HYDROcodone-acetaminophen ([place]) 7.5-325 mg per tablet 1 tablet 1 tablet, oral, Every 6 hours PRN, pain moderate (4-6), first line, Starting on Mon09/27/23 at 1436, Phase II/On Unit, If ordered PRN for pain, nurse is permitted to administer this medication for higher pain scores based on patient preference? Yes 0300 (Given - Provider: Maria E Chilel, ADAMS) ipratropium-albuteroL (Duo-Neb) 0.5-2.5 mg/3 mL nebulizer solution 3 mL 3 mL, nebulization, 2 times daily PRN, wheezing, Starting on Mon09/29/23 at 1745 metoclopramide (Reglan) injection 10 mg 10 mg, intravenous, Every 8 hours PRN, nausea/vomiting, second line, Starting on Mon09/27/23 at 1436, Phase II/On Unit morphine injection 4 mg (CANCELED) 4 mg, intravenous, Every 4 hours PRN, pain severe (7-10), first line, Starting on Mon09/27/23 at 1436, Phase II/On Unit 1511 (Given - Provider: Lucy Vazquez RN)2020 (Given - Provider: Maria E Chilel, ADAMS) ondansetron (Zofran) injection 4 mg 4 mg, intravenous, Every 6 hours PRN, nausea/vomiting, first line, Starting on Mon09/27/23 at 1436, Phase II/On Unit, When administering via IV Push, administer over 3-5 minutes. oxyCODONE (Roxicodone) immediate release tablet 5 mg 5 mg, oral, Every 4 hours PRN, pain mild (1-3), first line, Starting on Mon09/27/23 at 1436, Phase II/On Unit, When able to take oral medications., If ordered PRN for pain, nurse is permitted to administer this medication for higher pain scores based on patient preference? Yes 0815 (Given - Provider: Ilan Marin RN)1329 (Given - Provider: Ilan Marin RN) 0037 (Given - Provider: Debbie Hopper RN)0646 (Given - Provider: Debbie Hopper RN) sodium chloride 0.9 % irrigation solution (CANCELED) As needed, Starting on 11/22/23 at 0908, Intraprocedure 0908 (Given - Provider: Chance Patton MD - Comment: USED T/O PROCEDURE PRN) No Frequency Medication Order 09/27/2023 09/28/2023 09/29/2023 ipratropium-albuteroL (Duo-Neb) nebulizer solution - Omnicell Override Pull Starting on Mon09/29/23 at 1358, For 1 dose, Created by cabinet override 1400 (Due) Care Teams (unrecognized sec tion and content) Propulsion Motor And Generator Repairer Relationship Specialty Start Date End Date Steph Hung MD [address] [facility] [address] [place] [address] PCP - General Family Medicine 08/26/11 Propulsion Motor And Generator Repairer Relationship Specialty Start Date End Date Steph Hung MD [address] [place] [address] [address] [place] [address] PCP - General Family Medicine 08/26/11 Propulsion Motor And Generator Repairer Relationship Specialty Start Date End Date Steph Hung MD [address] [place] [address] [address] [place] [address] PCP - General Family Medicine 08/26/11 Propulsion Motor And Generator Repairer Relationship Specialty Start Date End Date Steph Hung MD [address] [facility] [address] [place] [address] PCP - General Family Medicine 08/26/11 Propulsion Motor And Generator Repairer Relationship Specialty Start Date End Date Steph Hung MD [address] [facility] [address] [place] [address] PCP - General Family Medicine 08/26/11 Propulsion Motor And Generator Repairer Relationship Specialty Start Date End Date Steph Hung MD [address] [facility] [address] [place] [address] PCP - General Family Medicine 08/26/11 Propulsion Motor And Generator Repairer Relationship Specialty Start Date End Date Steph Hung MD [address] [place] [address] PCP - General Family Medicine 08/26/11 Team Status: Active Member Role Status Dates Steph Hung MD Primary Care Provider Active Team Status: Inactive Member Role Status Dates Steph Hung MD Primary Care Provider Active Moreno Mccord MD Attending Provider Active Propulsion Motor And Generator Repairer Relationship Specialty Start Date End Date Sam Hung MD [address] [place] [address] PCP - General Family Medicine 09/25/23 Propulsion Motor And Generator Repairer Relationship Specialty Start Date End Date Sam Hung MD [address] [place] [address] PCP - General Family Medicine 09/25/23 Propulsion Motor And Generator Repairer Relationship Specialty Start Date End Date Sam Hung MD [address] [place] [address] PCP - General Family Medicine 09/26/23 Propulsion Motor And Generator Repairer Relationship Specialty Start Date End Date Sam Hung MD [address] [place] [address] PCP - General Family Medicine 09/26/23 Propulsion Motor And Generator Repairer Relationship Specialty Start Date End Date aSm Hung MD [address] [place] [address] PCP - General Family Medicine 09/26/23 Propulsion Motor And Generator Repairer Relationship Specialty Start Date End Date Sam Hung MD [address] [place] [address] PCP - General Family Medicine 09/26/23 Propulsion Motor And Generator Repairer Relationship Specialty Start Date End Date Sam Hung MD [address] [facility] [address] [place] [address] PCP - General Family Medicine 08/15/23 Ordered Prescriptions (unrec ognized section and content) Prescription Sig Dispensed Refills Start Date End Da te aspirin (ASPIRIN CHILDRENS) 81 MG chewable tablet Take 1 tablet by mouth daily 30 tablet 0 07/03/2022 atorvastatin (LIPITOR) 80 MG tablet Take 1 tablet by mouth daily 30 tablet 0 07/03/2022 meclizine (ANTIVERT) 25 MG tablet Take 1 tablet by mouth 3 times daily as needed for Dizziness or Nausea 30 tablet 0 07/03/2022 07/13/2022 Goals (unrecognized section and content) Goals may be documented in a n alternate sectionGoals may be documented in an alternate sectionGoals may be documented in an alternate sectionGoals may be documented in an alternate section INFORMATION SOURCE (unrecogn ized section and content) DATE CREATED AUTHOR 03/07/2023 [facility] DATE CREATED AUTHOR AUTHOR'S ORGANIZ ATION 09/01/2023 [facility]ology [facility] DATE CREATED AUTHOR AUTHOR'S ORGANIZ ATION 10/08/2023 [facility] DATE CREATED AUTHOR AUTHOR'S ORGANIZ ATION 11/12/2023 [facility] DATE CREATED AUTHOR AUTHOR'S ORGANIZ ATION 01/20/2024 [facility] FOR RECORDS PERTAINING TO PATIENTS WHO ARE OR HAVE BEEN ENROLLED IN A CHEMICAL DEPENDENCY/SUBSTANCEABUSE PROGRAM, SOME INFORMATION MAY BE OMITTED. This clinical summary was aggregated from multiple sources. Caution should be exercised in using it in the provision of clinical care. This summary normalizes information from multiple sources, and as a consequence, information in this document may materially change the coding, format and clinical context of patient data. In addition, data may be omitted in some cases. CLINICAL DECISIONS SHOULD BE BASED ON THE PRIMARY CLINICAL RECORDS. [employer] provides no warranty or guarantee of the accuracy or completeness of information in this document.
--- NOTE | 2024-01-23 07:47 | US_ITS ---
[place] [address] Patient Name: KENN RODRIGUEZ MRN: [id number] date: 1945 Sex: F Assigned Patient Location: [facility] Current Patient Location: [facility] Accession/Order Number: [id number] Exam Date: 01/23/2024 07:50 Report Date: 01/23/2024 08:20 At the request of: ALEXIS BOOKER Procedure: US venous doppler LE LT EXAM: US venous doppler LE LT HISTORY: Deep Vein Thrombosis COMPARISON: None. TECHNIQUE: Grayscale, color and Doppler FINDINGS: Region: Left leg Thrombus: None Flow: Normal Augmentation: Normal Compressibility: Normal Other: Subcutaneous edema US/US venous doppler LE LT IMPRESSION: No deep or superficial vein thrombus in the left leg Electronically authenticated by: GILES REN Date: 01/23/2024 08:20
== END 2024-01-23 07:42 | disposition home or self-care (01) ==
LOC: RAD 07:42
PROVIDERS: Visit Provider Internal Medicine
DX: R22.42 Localized swelling, mass and lump, left lower limb (principal)
CPT/HCPCS: 93971